=== PATIENT | female | born 1945 | race Caucasian/White ===

== ENCOUNTER 2017-09-06 19:22 | Inpatient (IN) ==
--- NOTE | 2017-09-06 19:33 | Emergency Department Report ---
Psych HPI - General Stated Complaint: Clearance for [facility] Time Seen by Provider: 09/06/17 19:25 Source: EMS, RN notes reviewed Mode of arrival: wheelchair Limitations: altered mental status - History of Present Illness HPI Narrative: Patient presents from [facility], with nurse's complaint of progressive decline in functioning and decreased interactivity to the point of near catatonia. Patient has Parkinson's with depression and psychosis, and this has been worsening over the past 7-10 days. Patient was seen yesterday by her primary care provider, TSH was drawn that was normal, was thought that this was a representation of the patient's depression worsening. For the course of the day staff been trying to get the patient admitted to [facility]'s inpatient psychiatric facility for probable catatonia secondary to Parkinson's depression with psychosis. [facility] is completely full, doctors at the [facility] unit and [facility] have agreed to accept the patient for short-term bedding untilis available at [facility]. Patient is here for medical clearance to go to [facility]. - Related Data Home Medications Medication Instructions Recorded Confirmed Acetaminophen [Acetaminophen ER] 1,300 mg PO HS 08/17/17 09/06/17 Acetaminophen [Tylenol] 325 - 650 mg PO Q4H PRN 08/17/17 09/06/17 Albuterol/Ipratropium [Duoneb] 1 unit AEROSOL BID 08/17/17 09/06/17 Albuterol/Ipratropium [Duoneb] 3 ml AEROSOL Q2H PRN 08/17/17 09/06/17 Bisacodyl Supp [Dulcolax] 10 mg RECTALLY DAILY PRN 08/17/17 09/06/17 Calcium Carbonate/Vitamin D3 1 tab PO DAILY 08/17/17 09/06/17 [Calcium 600-Vit D3 400 Tablet] Carbidopa/Levodopa 10/100 MG 1 tab PO 1130 08/17/17 09/06/17 [Sinemet] Carbidopa/Levodopa 25/100 MG 1 tab PO 1130 08/17/17 09/06/17 [Sinemet] Carbidopa/Levodopa 25/100 MG 2 tab PO TID 08/17/17 09/06/17 [Sinemet] Carboxymethyl/Glycerin/Poly80 1 drop EACH EYE BID 08/17/17 09/06/17 [Refresh Optive Advanced Drops] Celecoxib 200 mg PO DAILY 08/17/17 09/06/17 Docusate Sodium [Colace] 100 mg PO HS 08/17/17 09/06/17 Escitalopram [Lexapro] 10 mg PO DAILY 08/17/17 09/06/17 Fexofenadine [Allyn] 180 mg PO DAILY PRN 08/17/17 09/06/17 Guaifenesin/Dextromethorphan 10 ml PO Q4H PRN 08/17/17 09/06/17 [Tussin Dm Cough Syrup] Mirtazapine [Remeron] 45 mg PO HS 08/17/17 09/06/17 Multivitamin,Therapeutic [Thera] 1 tab PO DAILY 08/17/17 09/06/17 Nystatin [Nyamyc] 1 applicatio TOP BID 08/17/17 09/06/17 Nystatin [Nyamyc] 1 applicatio TOP BID PRN 08/17/17 09/06/17 Pantoprazole Sodium [Protonix] 40 mg PO ACB 08/17/17 09/06/17 Peg 3350 238 G Bottle [Miralax] 17 gm PO DAILY 08/17/17 09/06/17 Ropinirole [Requip] 3 mg PO TID 08/17/17 09/06/17 Senna + Docusate [Senna Plus 1 tab PO HS 08/17/17 09/06/17 Tablet] Sucralfate [Carafate] 1 gm PO HS 08/17/17 09/06/17 Tramadol [Ultram] 50 mg PO TID PRN 08/17/17 09/06/17 Triamcinolone 0.1% Cream 15 G 1 applicatio TOP TID PRN 08/17/17 09/06/17 [Kenalog] Vitamin B Complex [Balanced B-100] 1 tab PO DAILY 08/17/17 09/06/17 Acetaminophen [Tylenol] 650 mg PO Q4H PRN 09/06/17 09/06/17 Baclofen [Lioresal] 10 mg PO BID 09/06/17 09/06/17 Milk of Magnesia [Mom] 30 ml PO DAILY PRN 09/06/17 09/06/17 Allergies Allergy/AdvReac Type Severity Reaction Status Date / Time meperidine Allergy Unknown Verified 08/17/17 10:41 Review of Systems All systems: reviewed and negative except as stated PFSH Parkinson's Depression with psychosis GERD with esophagitis 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 Allergies with ear problems Gastritis without bleeding Joint pain Sciatica Generalized muscle weakness Peripheral edema Hypokalemia Constipation UTI Anemia Surgical History: Unknown - Social History Smoking status: Never smoker Substance use type: does not use Alcohol intake frequency: does not drink Physical Exam - Limitations Limitations: altered mental status - General General appearance: obtunded - Normal Exams: Head:: Normocephalic without trauma Eyes:: Pupils are PERRLA w/ EOMI, No scleral icterus, irritation, or foreign bodies noted ENMT:: No facial trauma, nasal exudates, pharyngeal erythema, or exudates are noted Neck:: Full range of motion, without adenopathy, JVD, bruits or thyromegaly Chest/Respirations:: Clear all hernandez, with good airflow, and symmetry bilaterally Cardiovascular:: Regular rate and rhythm, without murmur or gallop, Pulses 2+ all extremities, capillary refill, <2 seconds all extremities Abdomen:: Bowel sounds positive, soft, non-tender, non-distended, no hepatosplenomegaly, masses or bruits noted Lymphatic:: No lymphadenopathy, or lymphedema noted Musculoskeletal:: No tenderness, or deformity noted, good range of motion, all extremities Integumentary:: No rashes, hives, or bruising noted, hair and nails, without abnormality - Neurological Exam Neurological exam: Absent: alert (patient appears obtunded, but is able to follow simple commands. Patient will not communicate verbally at this time, but apparently did communicate verbally briefly at the shelter 2 hours ago.) - Psychiatric Psychiatric exam: Present: depressed, flat affect (nearly obtunded/catatonic) Psych - MDM Narrative Medical decision making narrative: Case is discussed with [facility] staff, patient has been presumptively accepted by [facility] for short-term care until a bed can be found at [facility]. BC, CMP, UA, salicylates all essentially normal. CT scan of head is normal as well. - Lab Data Result diagrams: 09/06/17 20:15 09/06/17 20:15 Disposition Clinical Impression: Decreased responsiveness, Depression, major, recurrent, severe with psychosis Disposition: [facility] To [facility] Condition: Stable Prescriptions: No Action Carbidopa/Levodopa 10/100 MG [Sinemet] 1 tab PO 1130 Carbidopa/Levodopa 25/100 MG [Sinemet] 1 tab PO 1130 Bisacodyl Supp [Dulcolax] 10 mg RECTALLY DAILY PRN PRN Reason: Constipation Carbidopa/Levodopa 25/100 MG [Sinemet] 2 tab PO TID Senna + Docusate [Senna Plus Tablet] 1 tab PO HS Nystatin [Nyamyc] 1 applicatio TOP BID Albuterol/Ipratropium [Duoneb] 3 ml AEROSOL Q2H PRN PRN Reason: Shortness Of Air/Wheezing Vitamin B Complex [Balanced B-100] 1 tab PO DAILY Acetaminophen [Tylenol] 325 - 650 mg PO Q4H PRN PRN Reason: Pain /Fever Triamcinolone 0.1% Cream 15 G [Kenalog] 1 applicatio TOP TID PRN PRN Reason: Prn Orders Calcium Carbonate/Vitamin D3 [Calcium 600-Vit D3 400 Tablet] 1 tab PO DAILY Guaifenesin/Dextromethorphan [Tussin Dm Cough Syrup] 10 ml PO Q4H PRN PRN Reason: Cough Albuterol/Ipratropium [Duoneb] 1 unit AEROSOL BID Nystatin [Nyamyc] 1 applicatio TOP BID PRN PRN Reason: Rash Celecoxib 200 mg PO DAILY Docusate Sodium [Colace] 100 mg PO HS Ropinirole [Requip] 3 mg PO TID Tramadol [Ultram] 50 mg PO TID PRN PRN Reason: Pain Sucralfate [Carafate] 1 gm PO HS Mirtazapine [Remeron] 45 mg PO HS Escitalopram [Lexapro] 10 mg PO DAILY Acetaminophen [Acetaminophen ER] 1,300 mg PO HS Fexofenadine [Allyn] 180 mg PO DAILY PRN PRN Reason: Allergy Symptoms Multivitamin,Therapeutic [Thera] 1 tab PO DAILY Milk of Magnesia [Mom] 30 ml PO DAILY PRN PRN Reason: Constipation Baclofen [Lioresal] 10 mg PO BID Acetaminophen [Tylenol] 650 mg PO Q4H PRN PRN Reason: Pain Carboxymethyl/Glycerin/Poly80 [Refresh Optive Advanced Drops] 1 drop EACH EYE BID Pantoprazole Sodium [Protonix] 40 mg PO ACB Peg 3350 238 G Bottle [Miralax] 17 gm PO DAILY Referrals: Jania Llanes MD [Primary Care Provider] - - Seen By: physician
--- OUTSIDE RECORDS SUMMARY | 2017-09-06 19:43 | External Medical Summary | Continuity of Care Document ---
:1945 Author Organization [facility] Active Description Code Type Severity Reaction Onset Reported/ Identified Relationship Clinical to Patient Status Yes DEMEROL 80678 Drug N/A N/A 82407 Aller 2 gy Yes NEUPRO 43441 Drug N/A N/A 26671 Aller 3 gy Yes Opioids-Mepe meper Aller Unknown N/A 08/23/2010 ridine & idine gy Related Yes Opioids-Mepe meper Aller Unknown N/A 08/23/2010 ridine and idine gy Related Yes meperidine Aller Unknown N/A 08/17/2017 gy Medications Medication Packaging Start Date Stop Date Route Dosage Sig 08/22/2009 INH 15 mcg/2 ml Brovana Neb BID 08/22/2009 PO 10 mg Abilify HS 08/22/2009 PO 1 gm Sucralfate HS Comtan 08/22/2009 PO 200 mg QID 08/22/2009 PO 45 mg Remeron HS Ultram 07/15/2010 PO 50 mg PRN 07/17/2010 PO 30 mg Prevacid DAILY 08/24/2010 PO 10 mg Lexapro DAILY 09/01/2010 ORAL [id number] 04/03/2012 ORAL 09/23/2014 ORAL [id number] twice daily 04/10/2015 PO 8.6 mg Sennosides HS 04/10/2015 PO 1 each Multi-Day Vitamins DAILY Tussin 04/10/2015 PO 118 ml Dm Syrup PRN 04/10/2015 PO 325 mg Acetaminophen PRN Mapap 04/10/2015 PO 650 mg Arthritis Pain HS 04/10/2015 PO 1 each Vitamin B Complex DAILY 04/10/2015 PO 255 gm Polyethylene DAILY Glycol 3350 04/10/2015 PO 100 mg Docusate Sodium HS 04/10/2015 PO 500 mg Methocarbamol BID 04/10/2015 PO 200 mg Celecoxib DAILY 04/10/2015 INH 3 ml Iprat-Albut Q6H 0.5-3(2.5) mg/3 ml 04/10/2015 PO 1 each Carbidopa-Levodopa BID 25-100 Tab 04/10/2015 PO 100 mg Tessalon Perle Q8H 04/10/2015 PO 3 mg Ropinirole HCl TID 04/10/2015 PO 20 mg Deltasone 20 mg WB Keflex 08/17/2017 PO 500 mg 500 mg TID 08/17/2017 PO 650 mg Acetaminophen ER HS 08/17/2017 PO 1 tab Sinemet 1130 Colace 08/17/2017 PO 100 mg HS 08/17/2017 PO 1 tab Sinemet 1130 Thera 08/17/2017 PO 1 each DAILY Milk 08/17/2017 PO 400 mg/5 ml of Magnesia DAILY 08/17/2017 PO 500 mg Robaxin BID Ultram 08/17/2017 PO 50 mg TID 08/17/2017 PO 1 gm Carafate HS 08/17/2017 PO 10 mg Lexapro DAILY 08/17/2017 PO 238 gm Miralax DAILY 08/17/2017 PO 180 mg Allyn DAILY 08/17/2017 PO 1 each Calcium 600-Vit D3 DAILY 400 Tablet Tussin 08/17/2017 PO 118 ml Dm Cough Syrup Q4H 08/17/2017 PO 1 each Balanced B-100 DAILY Senna 08/17/2017 PO 1 tab Plus Tablet HS Debrox 08/17/2017 LEFT EAR 150 drops/15 ml WESA Nyamyc 08/17/2017 TOP 15 gm TID Duoneb 08/17/2017 AEROSOL 3 ml Q2H 08/17/2017 RECTALLY 10 mg Dulcolax DAILY 08/17/2017 PO 325 mg Tylenol Q4H 08/17/2017 PO 45 mg Remeron HS 08/17/2017 TOP 15 Kenalog applic/15 g TID 08/17/2017 PO 200 mg Celecoxib DAILY 08/17/2017 EACH EYE 10 ml Refresh Optive BID Advanced Drops 08/17/2017 PO 40 mg Protonix ACB Requip 08/17/2017 PO 3 mg TID Problems Date Dx Coded Attending Type Code Diagnosis Diagnosed By 11/05/2016 EUSEBIA RODRIGUES, D64.9 Anemia, [place]SE[place] RODRIGUES, SUKI Hunt unspecified SUKI Hunt 11/05/2016 EUSEBIA RODRIGUES, R60.9 Edema, unspecified EUSEBIA RODRIGUES, SUKI Hunt 03/04/2017 EUSE[place]IA RODRIGUES, D64.9 Anemia, [place]SE[place] RODRIGUES, SUKI Hunt unspecified SUKI L 03/04/2017 EUSEBIA RODRIGUES, R60.9 Edema, unspecified EUSEBIA RODRIGUES, SUKI COHN L Procedures There is no data. Results Test Result Range M153.0000 - 11/28/15 23:45 URINE CULTURE. CFU/ml L600.0180 - 11/28/15 23:45 SPECIMEN TYPE, URINE STRAIGHT CATH COLOR,URINE YELLOW YELLOW TURBIDITY, URINE CLOUDY CLEAR SPECIFIC GRAVITY,URINE 1.025 1.015-1.025 PH, URINE - DIPSTICK 6.0 5.0-8.0 LEUKOCYTE ESTERASE ,URINE TRACE NEGATIVE NITRITE,URINE POSITIVE NEGATIVE PROTEIN,URINE - DIPSTICK NEGATIVE NEGATIVE GLUCOSE, URINE - DIPSTICK NEGATIVE NEGATIVE KETONES,URINE - DIPSTICK 1+ NEGATIVE UROBILINOGEN,URINE 0.2 EU/DL NORMAL BILIRUBIN,URINE - DIPSTICK NEGATIVE NEGATIVE BLOOD, URINE TRACE-LYSED NEGATIVE L600.0180 - 11/28/15 23:45 SPECIMEN TYPE, URINE STRAIGHT CATH COLOR,URINE YELLOW YELLOW TURBIDITY, URINE CLOUDY CLEAR SPECIFIC GRAVITY,URINE 1.025 1.015-1.025 PH, URINE - DIPSTICK 6.0 5.0-8.0 LEUKOCYTE ESTERASE ,URINE TRACE NEGATIVE NITRITE,URINE POSITIVE NEGATIVE PROTEIN,URINE - DIPSTICK NEGATIVE NEGATIVE GLUCOSE, URINE - DIPSTICK NEGATIVE NEGATIVE KETONES,URINE - DIPSTICK 1+ NEGATIVE UROBILINOGEN,URINE 0.2 EU/DL NORMAL BILIRUBIN,URINE - DIPSTICK NEGATIVE NEGATIVE BLOOD, URINE TRACE-LYSED NEGATIVE WBC,URINE 5-10 /HPF 0-5 RBC,URINE 1-3 /HPF 0-3 SQUAMOUS EPITHELIAL CELL,UR 10-20 BACTERIA,URINE 4+ NEGATIVE L200.0020 - 12/12/15 05:55 ICTERUS < 2 0-7 HEMOLYSIS < 15 0-25 L100.0050 - 12/26/15 05:25 WBC - WHITE BLOOD COUNT 3.3 T/MM3 4.5-11.0 RED BLOOD COUNT 4.13 M/MM3 4.00-5.20 HGB - HEMOGLOBIN 13.1 GM/DL 12-16 HCT - HEMATOCRIT 40.7 % 36-46 MEAN CORPUSCULAR VOLUME 98.5 UM3 80-100 MEAN CORPUSCULAR HGB 31.7 UUG 26-34 MEAN CORPUSCULAR HGB CONC(MCHC 32.2 GM/DL 31-37 RDW STANDARD DEVIATION 47.6 FL 36.9-50.2 PLT - PLATELET COUNT 199 T/MM3 130-400 MEAN PLATELET VOLUME 9.6 UM3 9.4-12.4 NEUTROPHILS % (AUTO) 52.6 % 33-66 LYMPHOCYTES % (AUTO) 32.5 % 23-45 MONOCYTES % (AUTO) 9.1 % 0-9.0 EOSINOPHILS % (AUTO) 4.6 % 0-4 BASOPHILS % (AUTO) 1.2 % 0-2 IMMATURE GRANULOCYTE % (AUTO) 0.0 % 0.0-0.5 NEUTROPHILS # (AUTO) 1.7 T/MM3 1.8-7.7 LYMPHOCYTES # (AUTO) 1.1 T/MM3 1-4.8 MONOCYTES # (AUTO) 0.3 T/MM3 0-0.8 EOSINOPHILS # (AUTO) 0.2 T/MM3 0-0.5 BASOPHILS # (AUTO) 0.0 T/MM3 0-0.2 IMMATURE GRANULOCYTE # (AUTO) 0.00 T/MM3 0.00-0.03 L200.0020 - 12/26/15 05:25 ICTERUS < 2 0-7 HEMOLYSIS < 15 0-25 L200.1350 - 12/26/15 05:25 CHOLESTEROL 199 MG/DL 132-199 TRIGLYCERIDES 179 MG/DL 35-135 HDL CHOLESTEROL, DIRECT 46 MG/DL 40-60 LDL CHOLESTEROL,CALCULATED 117.2 66-159 VLDL CHOLESTEROL 35.8 MG/DL 0-28 RISK FACTOR 4.3 RATIO 0-4.0 M153.0000 - 01/18/16 11:00 URINE CULTURE. CFU/ml L6003.0110 - 01/18/16 11:00 SPECIMEN TYPE, URINE STRAIGHT CATH COLOR,URINE YELLOW YELLOW TURBIDITY, URINE CLEAR CLEAR SPECIFIC GRAVITY,URINE >=1.030 1.015-1.025 PH, URINE - DIPSTICK 6.0 5.0-8.0 LEUKOCYTE ESTERASE ,URINE NEGATIVE NEGATIVE NITRITE,URINE NEGATIVE NEGATIVE PROTEIN,URINE - DIPSTICK NEGATIVE NEGATIVE GLUCOSE, URINE - DIPSTICK NEGATIVE NEGATIVE KETONES,URINE - DIPSTICK TRACE NEGATIVE UROBILINOGEN,URINE 0.2 EU/DL NORMAL BILIRUBIN,URINE - DIPSTICK NEGATIVE NEGATIVE BLOOD, URINE NEGATIVE NEGATIVE LUMICND3 MICROSCOPIC NOT IND. L100.0050 - 03/16/16 06:50 WBC - WHITE BLOOD COUNT 3.2 T/MM3 4.5-11.0 RED BLOOD COUNT 3.84 M/MM3 4.00-5.20 HGB - HEMOGLOBIN 12.8 GM/DL 12-16 HCT - HEMATOCRIT 38.9 % 36-46 MEAN CORPUSCULAR VOLUME 101.3 UM3 80-100 MEAN CORPUSCULAR HGB 33.3 UUG 26-34 MEAN CORPUSCULAR HGB CONC(MCHC 32.9 GM/DL 31-37 RDW STANDARD DEVIATION 46.9 FL 36.9-50.2 PLT - PLATELET COUNT 189 T/MM3 130-400 MEAN PLATELET VOLUME 9.9 UM3 9.4-12.4 NEUTROPHILS % (AUTO) 60.1 % 33-66 LYMPHOCYTES % (AUTO) 28.4 % 23-45 MONOCYTES % (AUTO) 8.1 % 0-9.0 EOSINOPHILS % (AUTO) 2.2 % 0-4 BASOPHILS % (AUTO) 0.9 % 0-2 IMMATURE GRANULOCYTE % (AUTO) 0.3 % 0.0-0.5 NEUTROPHILS # (AUTO) 1.9 T/MM3 1.8-7.7 LYMPHOCYTES # (AUTO) 0.9 T/MM3 1-4.8 MONOCYTES # (AUTO) 0.3 T/MM3 0-0.8 EOSINOPHILS # (AUTO) 0.1 T/MM3 0-0.5 BASOPHILS # (AUTO) 0.0 T/MM3 0-0.2 IMMATURE GRANULOCYTE # (AUTO) 0.01 T/MM3 0.00-0.03 L200.0020 - 03/16/16 06:50 ICTERUS < 2 0-7 HEMOLYSIS 16 0-25 TURBIDITY < 20 0-20 SODIUM 142 MEQ/L 134-144 POTASSIUM 4.1 MEQ/L 3.6-5 CHLORIDE 106 MEQ/L 98-107 CO2 - CARBON DIOXIDE 28 MEQ/L 22-30 ANION GAP 8 MEQ/L 5-15 BLOOD UREA NITROGEN 19.0 MG/DL 7-17 CREATININE 0.5 MG/DL 0.7-1.2 BUN/CREATININE RATIO 38 RATIO 6-26 GLOMERULAR FILTRATION RATE 122 GLUCOSE 84 MG/DL 65-110 OSMOLALITY,CALCULATED 274 MOSM/KG 261-280 CALCIUM 8.9 MG/DL 8.4-10.2 BILIRUBIN,TOTAL 0.50 MG/DL 0.20-1.30 ALKALINE PHOSPHATASE 70 U/L 38-126 TOTAL PROTEIN 6.4 G/DL 6.3-8.2 ALBUMIN 3.7 G/DL 3.5-5.0 GLOBULIN 2.7 G/DL 2.4-3.6 ALBUMIN/GLOBULIN RATIO 1.4 RATIO 1.1-2.2 AST (SGOT) 17 U/L 14-36 ALT (SGPT) 19 U/L 9-52 L200.2360 - 03/16/16 06:50 VITAMIN B12 529 PG/ML 239-931 L200.1350 - 03/16/16 06:50 CHOLESTEROL 193 MG/DL 132-199 TRIGLYCERIDES 127 MG/DL 35-135 HDL CHOLESTEROL, DIRECT 41 MG/DL 40-60 LDL CHOLESTEROL,CALCULATED 126.6 66-159 VLDL CHOLESTEROL 25.4 MG/DL 0-28 RISK FACTOR 4.7 RATIO 0-4.0 L100.0050 - 08/16/16 05:45 WBC - WHITE BLOOD COUNT 3.5 T/MM3 4.5-11.0 RED BLOOD COUNT 3.88 M/MM3 4.00-5.20 HGB - HEMOGLOBIN 12.3 GM/DL 12-16 HCT - HEMATOCRIT 38.3 % 36-46 MEAN CORPUSCULAR VOLUME 98.7 UM3 80-100 MEAN CORPUSCULAR HGB 31.7 UUG 26-34 MEAN CORPUSCULAR HGB CONC(MCHC 32.1 GM/DL 31-37 RDW STANDARD DEVIATION 46.5 FL 36.9-50.2 PLT - PLATELET COUNT 194 T/MM3 130-400 MEAN PLATELET VOLUME 9.5 UM3 9.4-12.4 NEUTROPHILS % (AUTO) 61.3 % 33-66 LYMPHOCYTES % (AUTO) 28.0 % 23-45 MONOCYTES % (AUTO) 6.9 % 0-9.0 EOSINOPHILS % (AUTO) 2.9 % 0-4 BASOPHILS % (AUTO) 0.9 % 0-2 IMMATURE GRANULOCYTE % (AUTO) 0.0 % 0.0-0.5 NEUTROPHILS # (AUTO) 2.1 T/MM3 1.8-7.7 LYMPHOCYTES # (AUTO) 1.0 T/MM3 1-4.8 MONOCYTES # (AUTO) 0.2 T/MM3 0-0.8 EOSINOPHILS # (AUTO) 0.1 T/MM3 0-0.5 BASOPHILS # (AUTO) 0.0 T/MM3 0-0.2 IMMATURE GRANULOCYTE # (AUTO) 0.00 T/MM3 0.00-0.03 L200.0020 - 08/16/16 05:45 FUNGAL CULTURE. 0.5 MG/DL 0.7-1.2 FUNGAL CULTURE, BLOOD. 38 RATIO 6-26 NA - Sodium 146 MEQ/L 134-144 Potassium 4.2 MEQ/L 3.6-5 Chloride 104 MEQ/L 98-107 CO2 - Carbon Dioxide 29 MEQ/L 22-30 Anion Gap 13 MEQ/L 5-15 BUN - Blood Urea Nitrogen 19.0 MG/DL 7-17 Glomerular Filtration Rate 122 NRG Glucose 89 MG/DL 65-110 Osmolality,Calculated 282 MOSM/KG 261-280 Calcium 9.0 MG/DL 8.4-10.2 Bilirubin,Total 0.60 MG/DL 0.20-1.30 Alkaline Phosphatase 68 U/L 38-126 AST - Aspartate Amino Transfer 14 U/L 14-36 ALT 25 U/L 9-52 TP - Total Protein 6.3 G/DL 6.3-8.2 Albumin Level 3.7 G/DL 3.5-5.0 Globulin 2.6 G/DL 2.4-3.6 Albumin/Globulin Ratio 1.4 RATIO 1.1-2.2 LICTERUS < 2 0-7 LHEMOLYSIS < 15 0-25 LTURBIDITY < 20 0-20 L200.3850 - 08/16/16 05:45 TSH - Thyroid Stim Hormone 2.57 MIU/L 0.47-4.68 L200.1350 - 08/16/16 05:45 Triglycerides - Batch 126 MG/DL 35-135 Cholesterol - Batch 190 MG/DL 132-199 LDL Cholesterol,Calculated 122.8 66-159 VLDL Cholesterol 25.2 MG/DL 0-28 HDL Cholesterol, Direct -Batch 42 MG/DL 40-60 Chol/HDL Ratio 4.5 RATIO 0-4.0 L200.0050 - 10/01/16 01:00 POTASSIUM Urine, Clean Catch NRG CHLORIDE YELLOW YELLOW ANION GAP SL CLOUDY NRG BLOOD UREA NITROGEN 6.0 5.0-8.0 BUN/CREATININE RATIO NEGATIVE NEGATIVE GLUCOSE NEGATIVE NEGATIVE CALCIUM NEGATIVE NEGATIVE BILIRUBIN, CONJUG & UNCONJUG NEGATIVE NEGATIVE TOTAL PROTEIN 3-5 /HPF 0-3 ALBUMIN 20-30 /HPF 0-5 ALBUMIN/GLOBULIN RATIO 20-50 NRG CKMB 3+ NEGATIVE GENTAMICIN,RANDOM Cult reflexed &setup NR Specific Luke,Urine 1.015 1.015-1.025 Leukocyte Esterase,Urine 2+ NEGATIVE Nitrate,Urine POSITIVE NEGATIVE Urobilinogen,Urine 0.2 EU/DL NORMAL Occult Blood,Urine - Dipstick NEGATIVE NEGATIVE M120.0100 - 10/01/16 01:00 Urine Culture CFU/ml NR L100.0050 - 11/05/16 04:55 WBC - WHITE BLOOD COUNT 3.9 T/MM3 4.5-11.0 RED BLOOD COUNT 3.78 M/MM3 4.00-5.20 HGB - HEMOGLOBIN 12.1 GM/DL 12-16 HCT - HEMATOCRIT 38.0 % 36-46 MEAN CORPUSCULAR VOLUME 100.5 UM3 80-100 MEAN CORPUSCULAR HGB 32.0 UUG 26-34 MEAN CORPUSCULAR HGB CONC(MCHC 31.8 GM/DL 31-37 RDW STANDARD DEVIATION 50.1 FL 36.9-50.2 PLT - PLATELET COUNT 191 T/MM3 130-400 MEAN PLATELET VOLUME 10.0 UM3 9.4-12.4 NEUTROPHILS % (AUTO) 63.4 % 33-66 LYMPHOCYTES % (AUTO) 25.8 % 23-45 MONOCYTES % (AUTO) 7.7 % 0-9.0 EOSINOPHILS % (AUTO) 2.6 % 0-4 BASOPHILS % (AUTO) 0.5 % 0-2 IMMATURE GRANULOCYTE % (AUTO) 0.0 % 0.0-0.5 NEUTROPHILS # (AUTO) 2.5 T/MM3 1.8-7.7 LYMPHOCYTES # (AUTO) 1.0 T/MM3 1-4.8 MONOCYTES # (AUTO) 0.3 T/MM3 0-0.8 EOSINOPHILS # (AUTO) 0.1 T/MM3 0-0.5 BASOPHILS # (AUTO) 0.0 T/MM3 0-0.2 IMMATURE GRANULOCYTE # (AUTO) 0.00 T/MM3 0.00-0.03 L200.0020 - 11/05/16 04:55 FUNGAL CULTURE. 0.6 MG/DL 0.7-1.2 FUNGAL CULTURE, BLOOD. 35 RATIO 6-26 NA - Sodium 144 MEQ/L 134-144 Potassium 4.1 MEQ/L 3.6-5 Chloride 104 MEQ/L 98-107 CO2 - Carbon Dioxide 31 MEQ/L 22-30 Anion Gap 9 MEQ/L 5-15 BUN - Blood Urea Nitrogen 21.0 MG/DL 7-17 Glomerular Filtration Rate 99 NRG Glucose 90 MG/DL 65-110 Osmolality,Calculated 280 MOSM/KG 261-280 Calcium 9.1 MG/DL 8.4-10.2 Bilirubin,Total 0.60 MG/DL 0.20-1.30 Alkaline Phosphatase 82 U/L 38-126 AST - Aspartate Amino Transfer 15 U/L 14-36 ALT 18 U/L 9-52 TP - Total Protein 7.0 G/DL 6.3-8.2 Albumin Level 4.0 G/DL 3.5-5.0 Globulin 3.0 G/DL 2.4-3.6 Albumin/Globulin Ratio 1.3 RATIO 1.1-2.2 LICTERUS < 2 0-7 LHEMOLYSIS < 15 0-25 LTURBIDITY < 20 0-20 L100.0050 - 03/04/17 05:50 WBC - WHITE BLOOD COUNT 3.4 T/MM3 4.5-11.0 RED BLOOD COUNT 3.74 M/MM3 4.00-5.20 HGB - HEMOGLOBIN 12.1 GM/DL 12-16 HCT - HEMATOCRIT 37.7 % 36-46 MEAN CORPUSCULAR VOLUME 100.8 UM3 80-100 MEAN CORPUSCULAR HGB 32.4 UUG 26-34 MEAN CORPUSCULAR HGB CONC(MCHC 32.1 GM/DL 31-37 RDW STANDARD DEVIATION 51.1 FL 36.9-50.2 PLT - PLATELET COUNT 180 T/MM3 130-400 MEAN PLATELET VOLUME 9.9 UM3 9.4-12.4 NEUTROPHILS % (AUTO) 68.2 % 33-66 LYMPHOCYTES % (AUTO) 21.0 % 23-45 MONOCYTES % (AUTO) 6.1 % 0-9.0 EOSINOPHILS % (AUTO) 3.8 % 0-4 BASOPHILS % (AUTO) 0.6 % 0-2 IMMATURE GRANULOCYTE % (AUTO) 0.3 % 0.0-0.5 NEUTROPHILS # (AUTO) 2.3 T/MM3 1.8-7.7 LYMPHOCYTES # (AUTO) 0.7 T/MM3 1-4.8 MONOCYTES # (AUTO) 0.2 T/MM3 0-0.8 EOSINOPHILS # (AUTO) 0.1 T/MM3 0-0.5 BASOPHILS # (AUTO) 0.0 T/MM3 0-0.2 IMMATURE GRANULOCYTE # (AUTO) 0.01 T/MM3 0.00-0.03 L200.0020 - 03/04/17 05:50 FUNGAL CULTURE. 0.6 MG/DL 0.7-1.2 FUNGAL CULTURE, BLOOD. 45 RATIO 6-26 NA - Sodium 145 MEQ/L 134-144 Potassium 4.2 MEQ/L 3.6-5 Chloride 105 MEQ/L 98-107 CO2 - Carbon Dioxide 30 MEQ/L 22-30 Anion Gap 10 MEQ/L 5-15 BUN - Blood Urea Nitrogen 27.0 MG/DL 7-17 Glomerular Filtration Rate 99 NRG Glucose 107 MG/DL 65-110 Osmolality,Calculated 284 MOSM/KG 261-280 Calcium 9.0 MG/DL 8.4-10.2 Bilirubin,Total 0.40 MG/DL 0.20-1.30 Alkaline Phosphatase 72 U/L 38-126 AST - Aspartate Amino Transfer 19 U/L 14-36 ALT 14 U/L 9-52 TP - Total Protein 6.8 G/DL 6.3-8.2 Albumin Level 3.8 G/DL 3.5-5.0 Globulin 3.0 G/DL 2.4-3.6 Albumin/Globulin Ratio 1.3 RATIO 1.1-2.2 LICTERUS < 2 0-7 LHEMOLYSIS < 15 0-25 LTURBIDITY < 20 0-20 L200.49 - 05/09/17 11:40 POTASSIUM Urine, Void-CC/notCC NRG CHLORIDE YELLOW YELLOW ANION GAP SL CLOUDY NRG BLOOD UREA NITROGEN 6.5 5.0-8.0 BUN/CREATININE RATIO TRACE NEGATIVE GLUCOSE NEGATIVE NEGATIVE CALCIUM TRACE NEGATIVE BILIRUBIN, CONJUG & UNCONJUG NEGATIVE NEGATIVE TOTAL PROTEIN 0-1 /HPF 0-3 ALBUMIN 5-10 /HPF 0-5 ALBUMIN/GLOBULIN RATIO 0-5 NRG CKMB 3+ NEGATIVE GENTAMICIN,RANDOM Cult reflexed &setup NR Specific Luke,Urine 1.025 1.015-1.025 Leukocyte Esterase,Urine NEGATIVE NEGATIVE Nitrate,Urine POSITIVE NEGATIVE Urobilinogen,Urine 0.2 EU/DL NORMAL Occult Blood,Urine - Dipstick NEGATIVE NEGATIVE 05/09/17 11:40 Urine Culture Culture Initiated - Results Pending [facility]05/09/18 11:40 Urine Culture CFU/ml NRG L100.0050 - 06/27/17 05:00 WBC - WHITE BLOOD COUNT 3.3 T/MM3 4.5-11.0 RED BLOOD COUNT 3.77 M/MM3 4.00-5.20 HGB - HEMOGLOBIN 12.0 GM/DL 12-16 HCT - HEMATOCRIT 37.3 % 36-46 MEAN CORPUSCULAR VOLUME 98.9 UM3 80-100 MEAN CORPUSCULAR HGB 31.8 UUG 26-34 MEAN CORPUSCULAR HGB CONC(MCHC 32.2 GM/DL 31-37 RDW STANDARD DEVIATION 49.3 FL 36.9-50.2 PLT - PLATELET COUNT 177 T/MM3 130-400 MEAN PLATELET VOLUME 10.0 UM3 9.4-12.4 NEUTROPHILS % (AUTO) 57.4 % 33-66 LYMPHOCYTES % (AUTO) 29.2 % 23-45 MONOCYTES % (AUTO) 8.8 % 0-9.0 EOSINOPHILS % (AUTO) 4.0 % 0-4 BASOPHILS % (AUTO) 0.6 % 0-2 IMMATURE GRANULOCYTE % (AUTO) 0.0 % 0.0-0.5 NEUTROPHILS # (AUTO) 1.9 T/MM3 1.8-7.7 LYMPHOCYTES # (AUTO) 1.0 T/MM3 1-4.8 MONOCYTES # (AUTO) 0.3 T/MM3 0-0.8 EOSINOPHILS # (AUTO) 0.1 T/MM3 0-0.5 BASOPHILS # (AUTO) 0.0 T/MM3 0-0.2 IMMATURE GRANULOCYTE # (AUTO) 0.00 T/MM3 0.00-0.03 L200.0020 - 06/27/17 05:00 FUNGAL CULTURE. 0.6 mg/dL 0.7-1.2 FUNGAL CULTURE, BLOOD. 27 RATIO 6-26 NA - Sodium 145 MEQ/L 134-144 Potassium 4.1 MEQ/L 3.6-5 Chloride 103 MEQ/L 98-107 CO2 - Carbon Dioxide 32 MEQ/L 22-30 Anion Gap 10 meq/L 5-15 BUN - Blood Urea Nitrogen 16.0 MG/DL 7-17 Glomerular Filtration Rate 99 NRG Glucose 100 MG/DL 65-110 Osmolality,Calculated 280 MOSM/KG 261-280 Calcium 9.0 MG/DL 8.4-10.2 Bilirubin,Total 0.40 MG/DL 0.20-1.30 Alkaline Phosphatase 71 U/L 38-126 AST - Aspartate Amino Transfer 16 U/L 14-36 TP - Total Protein 6.4 g/dL 6.3-8.2 Albumin Level 3.8 g/dL 3.5-5.0 Globulin 2.6 G/DL 2.4-3.6 Albumin/Globulin Ratio 1.5 RATIO 1.1-2.2 LICTERUS < 2 0-7 LHEMOLYSIS < 15 0-25 LTURBIDITY < 20 0-20 LALTV < 4 U/L 1-35 L200.3850 - 06/27/17 05:00 TSH - Thyroid Stim Hormone 1.63 mIU/L 0.47-4.68 L750.9302 - 06/27/17 05:00 Varicella Zoster IgG Positive NRG Varicella Zoster IgG Index 649.40 =>165 L200.0050 - 08/17/17 00:00 POTASSIUM Urine, Void-CC/notCC NRG CHLORIDE YELLOW YELLOW ANION GAP SL CLOUDY NRG BLOOD UREA NITROGEN 6.0 5.0-8.0 BUN/CREATININE RATIO NEGATIVE NEGATIVE GLUCOSE NEGATIVE NEGATIVE CALCIUM TRACE NEGATIVE BILIRUBIN, CONJUG & UNCONJUG NEGATIVE NEGATIVE TOTAL PROTEIN 0-1 /HPF 0-3 ALBUMIN 5-10 /HPF 0-5 ALBUMIN/GLOBULIN RATIO >50 NRG CKMB 3+ NEGATIVE TRANSFERRIN Present NRG GENTAMICIN,RANDOM Cult reflexed &setup NRG Specific Luke,Urine 1.015 1.015-1.025 Leukocyte Esterase,Urine TRACE NEGATIVE Nitrate,Urine POSITIVE NEGATIVE Urobilinogen,Urine 0.2 EU/DL NORMAL Occult Blood,Urine - Dipstick NEGATIVE NEGATIVE M120.0100 - 08/17/17 00:00 Urine Culture CFU/ml NRG L200.0050 - 08/17/17 11:16 POTASSIUM Urine, Void-CC/notCC NRG CHLORIDE YELLOW YELLOW ANION GAP SL CLOUDY NRG BLOOD UREA NITROGEN 6.0 5.0-8.0 BUN/CREATININE RATIO NEGATIVE NEGATIVE GLUCOSE NEGATIVE NEGATIVE CALCIUM TRACE NEGATIVE BILIRUBIN, CONJUG & UNCONJUG NEGATIVE NEGATIVE Specific Luke,Urine 1.015 1.015-1.025 Leukocyte Esterase,Urine NEGATIVE NEGATIVE Nitrate,Urine POSITIVE NEGATIVE Urobilinogen,Urine 0.2 EU/DL NORMAL Occult Blood,Urine - Dipstick NEGATIVE NEGATIVE L100.0050 - 08/17/17 11:16 WBC - WHITE BLOOD COUNT 4.2 T/MM3 4.5-11.0 RED BLOOD COUNT 4.27 M/MM3 4.00-5.20 HGB - HEMOGLOBIN 13.9 GM/DL 12-16 HCT - HEMATOCRIT 41.6 % 36-46 MEAN CORPUSCULAR VOLUME 97.4 UM3 80-100 MEAN CORPUSCULAR HGB 32.6 UUG 26-34 MEAN CORPUSCULAR HGB CONC(MCHC 33.4 GM/DL 31-37 RDW STANDARD DEVIATION 47.3 FL 36.9-50.2 PLT - PLATELET COUNT 188 T/MM3 130-400 MEAN PLATELET VOLUME 9.4 UM3 9.4-12.4 NEUTROPHILS % (AUTO) 74.0 % 33-66 LYMPHOCYTES % (AUTO) 18.7 % 23-45 MONOCYTES % (AUTO) 6.1 % 0-9.0 EOSINOPHILS % (AUTO) 0.7 % 0-4 BASOPHILS % (AUTO) 0.5 % 0-2 IMMATURE GRANULOCYTE % (AUTO) 0.0 % 0.0-0.5 NEUTROPHILS # (AUTO) 3.1 T/MM3 1.8-7.7 LYMPHOCYTES # (AUTO) 0.8 T/MM3 1-4.8 MONOCYTES # (AUTO) 0.3 T/MM3 0-0.8 EOSINOPHILS # (AUTO) 0.0 T/MM3 0-0.5 BASOPHILS # (AUTO) 0.0 T/MM3 0-0.2 IMMATURE GRANULOCYTE # (AUTO) 0.00 T/MM3 0.00-0.03 L200.0050 - 08/17/17 11:16 POTASSIUM Urine, Void-CC/notCC NRG CHLORIDE YELLOW YELLOW ANION GAP SL CLOUDY NRG BLOOD UREA NITROGEN 6.0 5.0-8.0 BUN/CREATININE RATIO NEGATIVE NEGATIVE GLUCOSE NEGATIVE NEGATIVE CALCIUM TRACE NEGATIVE BILIRUBIN, CONJUG & UNCONJUG NEGATIVE NEGATIVE TOTAL PROTEIN 0-1 /HPF 0-3 ALBUMIN 3-5 /HPF 0-5 ALBUMIN/GLOBULIN RATIO 20-50 NRG CKMB 3+ NEGATIVE GENTAMICIN,RANDOM Cult reflexed &setup NRG Specific Luke,Urine 1.015 1.015-1.025 Leukocyte Esterase,Urine NEGATIVE NEGATIVE Nitrate,Urine POSITIVE NEGATIVE Urobilinogen,Urine 0.2 EU/DL NORMAL Occult Blood,Urine - Dipstick NEGATIVE NEGATIVE L200.0020 - 08/17/17 11:16 FUNGAL CULTURE. 0.6 mg/dL 0.7-1.2 FUNGAL CULTURE, BLOOD. 30 RATIO 6-26 NA - Sodium 144 MEQ/L 136-146 Potassium 4.0 MEQ/L 3.6-5 Chloride 104 MEQ/L 98-107 CO2 - Carbon Dioxide 26 MEQ/L 22-30 Anion Gap 14 meq/L 5-15 BUN - Blood Urea Nitrogen 18.0 MG/DL 7-17 Glomerular Filtration Rate 99 NRG Glucose 114 MG/DL 65-110 Osmolality,Calculated 280 MOSM/KG 261-280 Calcium 9.4 MG/DL 8.4-10.2 Bilirubin,Total 0.90 MG/DL 0.20-1.30 Alkaline Phosphatase 95 U/L 38-126 AST - Aspartate Amino Transfer 20 U/L 14-36 TP - Total Protein 8.0 g/dL 6.3-8.2 Albumin Level 4.7 g/dL 3.5-5.0 Globulin 3.3 G/DL 2.4-3.6 Albumin/Globulin Ratio 1.4 RATIO 1.1-2.2 LICTERUS < 2 0-7 LHEMOLYSIS < 15 0-25 LTURBIDITY < 20 0-20 LALTV 5 U/L 1-35 L200.2067 - 08/17/17 11:16 Lactate 1.4 MMOL/L 0.6-2.2 M120.0100 - 08/17/17 11:16 Urine Culture PREVIOUS CULTURE FOR A SENSITIVITY FOR THE E. NRG COLI. CFU/ml Encounters ACCT No. Visit Discharge Status Pt. Type Provider Facility Loc./Unit Complaint Date/Time [id number] 04/19/2017 04/19/2017 [facility] [id number] 08:52:47 23:59:59 t 247 [id number] 04/19/2017 04/19/2017 [facility] [id number] 08:43:39 23:59:59 t 339 [id number] 12/19/2016 12/19/2016 [facility] [id number] 09:01:30 23:59:59 t 130 [id number] 12/19/2016 12/19/2016 [facility] [id number] 08:59:42 23:59:59 t 942 [id number] 11/14/2016 11/14/2016 [facility] [id number] 11:25:02 11:25:02 t 502 [id number] 11/13/2016 11/13/2016 [facility] [id number] 14:11:47 14:11:47 t 147 [id number] 10/19/2016 10/19/2016 [facility] [id number] 09:25:27 23:59:59 t 527 [id number] 10/19/2016 10/19/2016 [facility] [id number] 07:56:59 23:59:59 t 659 [id number] 10/19/2016 10/19/2016 [facility] [id number] 07:56:45 23:59:59 t 645 [id number] 10/18/2016 10/18/2016 [facility] [id number] 15:07:59 23:59:59 t 759 [id number] 10/18/2016 10/18/2016 [facility] [id number] 14:35:09 23:59:59 t 509 [id number] 10/18/2016 10/18/2016 [facility] [id number] 14:29:04 23:59:59 t 904 [id number] 10/18/2016 10/18/2016 [facility] [id number] 14:27:22 23:59:59 t 722 [id number] 10/18/2016 10/18/2016 [facility] [id number] 13:54:05 23:59:59 t 405 [id number] 10/18/2016 10/18/2016 [facility] [id number] 13:54:03 23:59:59 t 403 [id number] 10/18/2016 10/18/2016 [facility] [id number] 13:53:47 23:59:59 t 347 [id number] 04/16/2016 04/16/2016 [facility] [id number] 14:14:41 14:14:41 t 441 [id number] 04/16/2016 04/16/2016 [facility] [id number] 14:14:26 14:14:26 t 426 [id number] 04/16/2016 04/16/2016 [facility] [id number] 14:10:00 14:10:00 t 000 [id number] 04/16/2016 04/16/2016 [facility] [id number] 11:22:14 11:22:14 t 214 [id number] 04/16/2016 04/16/2016 [facility] Out[facility] [id number] 10:41:25 10:41:25 t 125 [id number] 04/16/2016 04/16/2016 [facility] [id number] 10:29:39 10:29:39 t 939 [id number] 04/16/2016 04/16/2016 [facility] [id number] 09:49:17 09:49:17 t 917 [id number] 04/16/2016 04/16/2016 [facility] Out[facility] [id number] 09:40:32 09:40:32 t 032 [id number] 04/09/2016 04/09/2016 [facility] Out[facility] [id number] 13:16:23 13:16:23 t 623 [id number] 12/06/2015 12/06/2015 [facility] Out[facility] [id number] 08:12:51 08:12:51 t 251 [id number] 12/05/2015 12/05/2015 [facility] [id number] 11:16:35 23:59:59 t 635 [id number] 12/05/2015 12/05/2015 [facility] [id number] 11:12:37 23:59:59 t 237 [id number] 12/05/2015 12/05/2015 [facility] Outpat[facility] [id number] 12:06:29 12:06:29 t 629 [id number] 12/05/2015 12/05/2015 DIS Outpat[facility] [id number] 12:03:26 12:03:27 t 326 [id number] 12/05/2015 12/05/2015 DIS Outpat[facility] [id number] 10:24:00 10:24:01 t 400 [id number] 12/01/2015 12/01/2015 [facility] [id number] 09:48:06 23:59:59 t 806 [id number] 12/01/2015 12/01/2015 [facility] [id number] 09:48:05 23:59:59 t 805 [id number] 03/30/2015 03/30/2015 [facility] Out[facility] [id number] 10:50:40 10:50:40 t 040 [id number] 03/29/2015 03/29/2015 [facility] [id number] 15:57:38 23:59:59 t 738 [id number] 03/29/2015 03/29/2015 [facility] [id number] 14:38:31 23:59:59 t 831 [id number] 03/29/2015 03/29/2015 [facility] [id number] 13:49:46 23:59:59 t 946 [id number] 03/29/2015 03/29/2015 [facility] [id number] 13:47:46 23:59:59 t 746 [id number] 03/29/2015 03/29/2015 [facility] Outpat[facility] [id number] 14:51:28 14:51:28 t 128 [id number] 03/29/2015 03/29/2015 DIS Outpat[facility] [id number] 13:47:39 13:47:41 t 739 [id number] 03/29/2015 03/29/2015 DIS Outpat[facility] [id number] 13:46:40 13:46:41 t 640 [id number] 09/24/2014 09/24/2014 [facility] Outpat[facility] [id number] 08:17:25 08:17:25 t 725 [id number] 09/23/2014 09/23/2014 C[facility] [id number] 15:39:05 23:59:59 t 905 [id number] 09/23/2014 09/23/2014 [facility] [id number] 15:36:29 23:59:59 t 629 [id number] 09/23/2014 09/23/2014 [facility] [id number] 15:32:49 23:59:59 t 249 [id number] 09/23/2014 09/23/2014 [facility] [id number] 12:26:27 23:59:59 t 627 [id number] 09/23/2014 09/23/2014 [facility] [id number] 12:14:17 23:59:59 t 417 [id number] 09/23/2014 09/23/2014 [facility] Out[facility] [id number] 15:01:08 15:01:08 t 108 [id number] 09/23/2014 09/23/2014 [facility] Out[facility] [id number] 14:42:17 14:42:17 t 217 [id number] 09/23/2014 09/23/2014 DIS Outpat[facility] [id number] 14:41:21 14:41:21 t 121 [id number] 09/23/2014 09/23/2014 DIS Outpatien [id number] 12:26:37 12:26:38 t 637 [id number] 09/23/2014 09/23/2014 DIS Outpatien [id number] 12:14:20 12:14:21 t 420 [id number] 09/13/2014 09/13/2014 CLS Outpatien [id number] 15:44:36 23:59:59 t 436 [id number] 08/19/2014 08/19/2014 DIS Outpatien [id number] 09:03:59 09:03:59 t 359 [id number] 09/06/2017 DIS Outpatien [id number] 12:51:16 t 116 [id number] 10/18/2016 Document [id number] 13:58:00 Registrat 8 ion [id number] 04/16/2016 Document [id number] 09:54:00 Registrat 4 ion [id number] 12/09/2015 Document [id number] 08:28:49 Registrat 849 ion [id number] 12/08/2015 Document [id number] 08:40:06 Registrat 006 ion [id number] 04/04/2015 Document [id number] 07:55:01 Registrat 501 ion [id number] 04/02/2015 Document [id number] 16:03:36 Registrat 336 ion [id number] 03/29/2015 Document [id number] 13:59:00 Registrat 9 ion [id number] 09/24/2014 Document [id number] 07:19:46 Registrat ion [id number] 09/24/2014 Document [id number] 07:19:43 Registrat ion [id number] 09/24/2014 Document [id number] 07:19:41 Registrat ion [id number] 09/24/2014 Document [id number] 07:19:38 Registrat ion [id number] 09/24/2014 Document [id number] 07:19:33 Registrat ion [id number] 09/24/2014 Document [id number] 07:19:30 Registrat ion [id number] 09/24/2014 Document [id number] 07:19:27 Registrat ion [id number] 09/24/2014 Document [id number] 07:19:10 Registrat ion [id number] 09/23/2014 Document [id number] 17:15:16 Registrat 516 ion [id number] 09/23/2014 Document [id number] 15:36:32 Registrat 632 ion [id number] 09/23/2014 Document [id number] 15:04:00 Registrat 4 ion [id number] 09/23/2014 Document [id number] 15:03:00 Registrat 3 ion [id number] 08/17/2017 08/17/2017 DIS Emergency GLEN Lopez [facility], 439 10:13:00 12:20:00 MARNI RODRIGUES [facility] [id number] 08/17/2017 08/17/2017 DIS [facility]patien [facility] 447 10:23:00 10:24:00 t SUKI RODRIGUES [id number] 06/27/2017 06/27/2017 DIS Outpatien LLANES [facility]. 347 00:53:00 00:54:00 t SUKI RODRIGUES [id number] 05/09/2017 05/09/2017 DIS Outpatien [facility] 278 13:02:00 13:03:00 t SUKI RODRIGUES [id number] 03/04/2017 03/04/2017 DIS Outpatien [facility] 773 00:54:00 00:55:00 t SUKI RODRIGUES [id number] 11/05/2016 11/05/2016 DIS Outpatien EUSEBIA [facility] lab 855 01:35:00 01:36:00 t SUKI RODRIGUES [id number] 10/01/2016 10/01/2016 DIS Outpatien [facility] 354 06:40:00 06:41:00 t SUKI RODRIGUES [id number] 08/16/2016 08/16/2016 DIS Outpatisampson MAN [facility]. 019 00:17:00 00:18:00 t ELPIDIO NUR [id number] 03/16/2016 03/16/2016 CLS Annabel Lopez [facility]. 580 08:42:00 23:59:59 t DO, [facility] [id number] 01/18/2016 01/18/2016 CLS Outpatisampson Lopez [facility]. 430 14:23:00 23:59:59 t DO, [facility] [id number] 12/26/2015 12/26/2015 CLS Outtiesha Lopez [facility]. 591 05:55:00 23:59:59 t DO, [facility] [id number] 12/12/2015 12/12/2015 CLS Outpatisampson Lopez [facility]. 858 00:22:00 23:59:59 t DO, [facility] [id number] 11/28/2015 11/28/2015 CLS Outtiesha Lopez [facility]. 373 23:45:00 23:59:59 t DO, [facility] [id number] 09/06/2017 ACT Emergency VALERIO Lopez [facility] 313 19:22:00 MD [facility] [id number] 04/19/2017 04/19/2017 CLS Outpatien [id number] 08:52:47 23:59:59 t 247 [id number] 04/19/2017 04/19/2017 CLS Outpatien [id number] 08:43:39 23:59:59 t 339 [id number] 12/19/2016 12/19/2016 CLS Outpatien [id number] 09:01:30 23:59:59 t 130 [id number] 12/19/2016 12/19/2016 CLS Outpatien [id number] 08:59:42 23:59:59 t 942 [id number] 11/14/2016 11/14/2016 DIS Outpatien [id number] 11:25:02 11:25:02 t 502 [id number] 11/13/2016 11/13/2016 DIS Outpatien [id number] 14:11:47 14:11:47 t 147 [id number] 10/19/2016 10/19/2016 CLS Outpatien [id number] 09:25:27 23:59:59 t 527 [id number] 10/19/2016 10/19/2016 CLS Outpatien [id number] 07:56:59 23:59:59 t 659 [id number] 10/19/2016 10/19/2016 CLS Outpatien [id number] 07:56:45 23:59:59 t 645 [id number] 10/18/2016 10/18/2016 CLS Outpatien [id number] 15:07:59 23:59:59 t 759 [id number] 10/18/2016 10/18/2016 CLS Outpatien [id number] 14:35:09 23:59:59 t 509 [id number] 10/18/2016 10/18/2016 CLS Outpatien [id number] 14:29:04 23:59:59 t 904 [id number] 10/18/2016 10/18/2016 CLS Outpatien [id number] 14:27:22 23:59:59 t 722 [id number] 10/18/2016 10/18/2016 CLS Outpatien [id number] 13:54:05 23:59:59 t 405 [id number] 10/18/2016 10/18/2016 CLS Outpatien [id number] 13:54:03 23:59:59 t 403 [id number] 10/18/2016 10/18/2016 CLS Outpatien [id number] 13:53:47 23:59:59 t 347 [id number] 04/16/2016 04/16/2016 DIS Outpatien [id number] 14:14:41 14:14:41 t 441 [id number] 04/16/2016 04/16/2016 DIS Outpatien [id number] 14:14:26 14:14:26 t 426 [id number] 04/16/2016 04/16/2016 DIS Outpatien [id number] 14:10:00 14:10:00 t 000 [id number] 04/16/2016 04/16/2016 DIS Outpatien [id number] 11:22:14 11:22:14 t 214 [id number] 04/16/2016 04/16/2016 DIS Outpatien [id number] 10:41:25 10:41:25 t 125 [id number] 04/16/2016 04/16/2016 DIS Outpatien [id number] 10:29:39 10:29:39 t 939 [id number] 04/16/2016 04/16/2016 DIS Outpatien [id number] 09:49:17 09:49:17 t 917 [id number] 04/16/2016 04/16/2016 DIS Outpatien [id number] 09:40:32 09:40:32 t 032 [id number] 04/09/2016 04/09/2016 DIS Outpatien [id number] 13:16:23 13:16:23 t 623 [id number] 12/06/2015 12/06/2015 DIS Outpatien [id number] 08:12:51 08:12:51 t 251 [id number] 12/05/2015 12/05/2015 CLS Outpatien [id number] 11:16:35 23:59:59 t 635 [id number] 12/05/2015 12/05/2015 CLS Outpatien [id number] 11:12:37 23:59:59 t 237 [id number] 12/05/2015 12/05/2015 DIS Outpatien [id number] 12:06:29 12:06:29 t 629 [id number] 12/05/2015 12/05/2015 DIS Outpatien [id number] 12:03:26 12:03:27 t 326 [id number] 12/05/2015 12/05/2015 DIS Outpatien [id number] 10:24:00 10:24:01 t 400 [id number] 12/01/2015 12/01/2015 CLS Outpatien [id number] 09:48:06 23:59:59 t 806 [id number] 12/01/2015 12/01/2015 CLS Outpatien [id number] 09:48:05 23:59:59 t 805 [id number] 03/30/2015 03/30/2015 DIS Outpatien [id number] 10:50:40 10:50:40 t 040 [id number] 03/29/2015 03/29/2015 CLS Outpatien [id number] 15:57:38 23:59:59 t 738 [id number] 03/29/2015 03/29/2015 CLS Outpatien [id number] 14:38:31 23:59:59 t 831 [id number] 03/29/2015 03/29/2015 CLS Outpatien [id number] 13:49:46 23:59:59 t 946 [id number] 03/29/2015 03/29/2015 CLS Outpatien [id number] 13:47:46 23:59:59 t 746 [id number] 03/29/2015 03/29/2015 DIS Outpatien [id number] 14:51:28 14:51:28 t 128 [id number] 03/29/2015 03/29/2015 DIS Outpatien [id number] 13:47:39 13:47:41 t 739 [id number] 03/29/2015 03/29/2015 DIS Outpatien [id number] 13:46:40 13:46:41 t 640 [id number] 09/24/2014 09/24/2014 DIS Outpatien [id number] 08:17:25 08:17:25 t 725 [id number] 09/23/2014 09/23/2014 CLS Outpatien [id number] 15:39:05 23:59:59 t 905 [id number] 09/23/2014 09/23/2014 CLS Outpatien [id number] 15:36:29 23:59:59 t 629 [id number] 09/23/2014 09/23/2014 CLS Outpatien [id number] 15:32:49 23:59:59 t 249 [id number] 09/23/2014 09/23/2014 CLS Outpatien [id number] 12:26:27 23:59:59 t 627 [id number] 09/23/2014 09/23/2014 CLS Outpatien [id number] 12:14:17 23:59:59 t 417 [id number] 09/23/2014 09/23/2014 DIS Outpatien [id number] 15:01:08 15:01:08 t 108 [id number] 09/23/2014 09/23/2014 DIS Outpatien [id number] 14:42:17 14:42:17 t 217 [id number] 09/23/2014 09/23/2014 DIS Outpatien [id number] 14:41:21 14:41:21 t 121 [id number] 09/23/2014 09/23/2014 DIS Outpatien [id number] 12:26:37 12:26:38 t 637 [id number] 09/23/2014 09/23/2014 DIS Outpatien [id number] 12:14:20 12:14:21 t 420 [id number] 09/13/2014 09/13/2014 CLS Outpatien [id number] 15:44:36 23:59:59 t 436 [id number] 08/19/2014 08/19/2014 DIS Outpatien [id number] 09:03:59 09:03:59 t 359 [id number] 09/06/2017 DIS Outpatien [id number] 12:51:16 t 116 [id number] 10/18/2016 Document [id number] 13:58:00 Registrat 8 ion [id number] 04/16/2016 Document [id number] 09:54:00 Registrat 4 ion [id number] 12/09/2015 Document [id number] 08:28:49 Registrat 849 ion [id number] 12/08/2015 Document [id number] 08:40:06 Registrat 006 ion [id number] 04/04/2015 Document [id number] 07:55:01 Registrat 501 ion [id number] 04/02/2015 Document [id number] 16:03:36 Registrat 336 ion [id number] 03/29/2015 Document [id number] 13:59:00 Registrat 9 ion [id number] 09/24/2014 Document [id number] 07:19:46 Registrat ion [id number] 09/24/2014 Document [id number] 07:19:43 Registrat ion [id number] 09/24/2014 Document [id number] 07:19:41 Registrat ion [id number] 09/24/2014 Document [id number] 07:19:38 Registrat ion [id number] 09/24/2014 Document [id number] 07:19:33 Registrat ion [id number] 09/24/2014 Document [id number] 07:19:30 Registrat ion [id number] 09/24/2014 Document [id number] 07:19:27 Registrat ion [id number] 09/24/2014 Document [id number] 07:19:10 Registrat ion [id number] 09/23/2014 Document [id number] 17:15:16 Registrat 516 ion [id number] 09/23/2014 Document [id number] 15:36:32 Registrat 632 ion [id number] 09/23/2014 Document [id number] 15:04:00 Registrat 4 ion [id number] 09/23/2014 Document [id number] 15:03:00 Registrat 3 ion
[2017-09-06] MEDS ORDERED: HALOPERIDOL 5 MG/ML INJECTION IM PRN (23:11)
[2017-09-06] MEDS ORDERED: LORazepam 0.5 MG TABLET PO PRN (23:11)
[2017-09-06] MEDS ORDERED: HALOPERIDOL 0.5 MG TABLET PO PRN (23:11)
[2017-09-06] MEDS ORDERED: GUAIFENESIN/DM 5ml ORAL LIQUID PO PRN (23:14)
[2017-09-06] MEDS ORDERED: FEXOFENADINE 180 MG TABLET PO PRN (23:14)
[2017-09-06] MEDS ORDERED: TRAMADOL 50 MG TABLET PO PRN (23:14)
[2017-09-06] MEDS ORDERED: ALBUTEROL/IPRATROPIUM 2.5mg-0.5mg/3ml NEB AEROSOL PRN (23:14)
[2017-09-06] MEDS ORDERED: NYSTATIN OINTMENT 15gm TP PRN (23:14)
[2017-09-06] MEDS ORDERED: TRIAMCINOLONE 0.1% CREAM 15 G TUBE TOP PRN (23:14)
[2017-09-06] MEDS: BACLOFEN 10 MG TABLET PO SCH (23:57)
[2017-09-06] MEDS: MIRTAZAPINE 45 MG TABLET PO SCH (23:57)
[2017-09-06] MEDS: DOCUSATE SODIUM 100 MG CAPSULE PO SCH (23:58)
[2017-09-06] MEDS: SUCRALFATE 1 GM TABLET PO SCH (23:58)
[2017-09-06] MEDS: SENNA + DOCUSATE TABLET PO SCH (23:58)
[2017-09-06] MEDS: ROPINIROLE 3 MG TABLET PO SCH (23:58)
[2017-09-07 00:37] VITALS: BMI 34.6
[2017-09-07] MEDS ORDERED: ALBUTEROL/IPRATROPIUM 2.5mg-0.5mg/3ml NEB AEROSOL SCH (09:00)
--- NOTE | 2017-09-07 09:27 | History & Physical Report ---
History of Present Illness Date: 09/07/17 Chief complaint: Depression with psycotic symptoms HPI: Marva is a 72 -year-old female who currently resides at [facility] under the primary care of Dr. Brianne Llanes from [place]. It is reported by patient's sister that she has had an overall decline over the past 3 weeks following a UTI urinary tract infection. She reports over the last 2 weeks. Patient has become more depressed, she is not eating and drinking much at all. The last 2 days she has become mostly nonverbal. [facility] staff describes a state of nearly catatonic at times. She was brought to the emergency room last evening for acute medical evaluation followed by [facility] under the care of Dr. Burroughs. Liver studies are reviewed, CBC is normal , Chemistry panel overall unremarkable. Urinalysis does show a trace ketone, trace leukocyte esterase with 3+ bacteria. Alcohol, salicylate, acetaminophen and urine drug screen are all negative. CT scan of the brain was performed revealing no acute inter-annual abnormalities or hemorrhage. Patient is seen this morning for initial medical consultation. She is resting in bed, her sister is at the bedside sleeping. Upon arrival, patient does state good morning and then answers simple questions with yes and no. She denies having any pain or shortness of breath. She denies having abdominal discomfort or nausea. She is comfortably breathing on room air, does not appear to have any acute distress. Old records are reviewed and supplemental history is obtained from sister at the bedside. Review of Systems All systems PM: 10-point ROS was reviewed, no additional remarkable complaints except Review of systems: Patient denies all review of systems during exam Past Medical History Medical History Updates: Parkinson's disease. Major depressive disorder with psychotic symptoms. GERD. Urinary incontinence. ALLERGIC rhinitis. History of esophagitis and gastritis without GI bleeding. Unspecified convulsions Surgical History: Tonsillectomy. Appendectomy. Mastoidectomy Family History: Sister-alive and well Family History: As Above - Social History Smoking status: Never smoker Substance use type: does not use Alcohol intake frequency: does not drink [facility]: [facility] Current residence: [facility] ([place]) Social history: PCP Dr Brianne Llanes- [place], [place] Medications Home Medications Medication Instructions Recorded Confirmed Type Acetaminophen [Acetaminophen ER] 1,300 mg PO HS 08/17/17 09/06/17 History Acetaminophen [Tylenol] 325 - 650 mg PO Q4H PRN 08/17/17 09/06/17 History Albuterol/Ipratropium [Duoneb] 1 unit AEROSOL BID 08/17/17 09/06/17 History Albuterol/Ipratropium [Duoneb] 3 ml AEROSOL Q2H PRN 08/17/17 09/06/17 History Bisacodyl Supp [Dulcolax] 10 mg RECTALLY DAILY PRN 08/17/17 09/06/17 History Calcium Carbonate/Vitamin D3 1 tab PO DAILY 08/17/17 09/06/17 History [Calcium 600-Vit D3 400 Tablet] Carbidopa/Levodopa 10/100 MG 1 tab PO 1130 08/17/17 09/06/17 History [Sinemet] Carbidopa/Levodopa 25/100 MG 1 tab PO 1130 08/17/17 09/06/17 History [Sinemet] Carbidopa/Levodopa 25/100 MG 2 tab PO TID 08/17/17 09/06/17 History [Sinemet] Carboxymethyl/Glycerin/Poly80 1 drop EACH EYE BID 08/17/17 09/06/17 History [Refresh Optive Advanced Drops] Celecoxib 200 mg PO DAILY 08/17/17 09/06/17 History Docusate Sodium [Colace] 100 mg PO HS 08/17/17 09/06/17 History Escitalopram [Lexapro] 10 mg PO DAILY 08/17/17 09/06/17 History Fexofenadine [Allyn] 180 mg PO DAILY PRN 08/17/17 09/06/17 History Guaifenesin/Dextromethorphan 10 ml PO Q4H PRN 08/17/17 09/06/17 History [Tussin Dm Cough Syrup] Mirtazapine [Remeron] 45 mg PO HS 08/17/17 09/06/17 History Multivitamin,Therapeutic [Thera] 1 tab PO DAILY 08/17/17 09/06/17 History Nystatin [Nyamyc] 1 applicatio TOP BID 08/17/17 09/06/17 History Nystatin [Nyamyc] 1 applicatio TOP BID PRN 08/17/17 09/06/17 History Pantoprazole Sodium [Protonix] 40 mg PO ACB 08/17/17 09/06/17 History Peg 3350 238 G Bottle [Miralax] 17 gm PO DAILY 08/17/17 09/06/17 History Ropinirole [Requip] 3 mg PO TID 08/17/17 09/06/17 History Senna + Docusate [Senna Plus 1 tab PO HS 08/17/17 09/06/17 History Tablet] Sucralfate [Carafate] 1 gm PO HS 08/17/17 09/06/17 History Tramadol [Ultram] 50 mg PO TID PRN 08/17/17 09/06/17 History Triamcinolone 0.1% Cream 15 G 1 applicatio TOP TID PRN 08/17/17 09/06/17 History [Kenalog] Vitamin B Complex [Balanced B-100] 1 tab PO DAILY 08/17/17 09/06/17 History Acetaminophen [Tylenol] 650 mg PO Q4H PRN 09/06/17 09/06/17 History Baclofen [Lioresal] 10 mg PO BID 09/06/17 09/06/17 History Milk of Magnesia [Mom] 30 ml PO DAILY PRN 09/06/17 09/06/17 History Allergies Allergy/AdvReac Type Severity Reaction Status Date / Time meperidine Allergy Unknown Verified 08/17/17 10:41 Exam Vital Signs: Temperature 96.8 F 09/06/17 23:16 Pulse Rate 88 09/06/17 23:48 Respiratory Rate 20 09/06/17 23:48 Blood Pressure 154/54 H 09/06/17 23:16 Pulse Oximetry 96 09/06/17 23:48 Height/Weight/BMI: Height 1.57 m Weight 85.8 kg Body Mass Index 34.6 - Constitutional Present: no acute distress, well nourished, well developed - Routine HEENT Exam Eye: Present: EOMI ENT: Present: mucous membranes moist, dentition normal - Routine Respiratory Exam Present: CTA bilaterally. Absent: wheezes - Routine Cardiovascular Exam Present: RRR, S1, S2, no murmur. Absent: murmur - Routine Abdominal Exam Present: soft, normoactive bowel sounds, non distended. Absent: tenderness - Routine Extremities Exam Present: no edema - Routine Skin Exam Present: intact, dry, warm - Routine Neurological Exam Present: alert, oriented X3, CN II-XII intact - Routine Psychiatric Exam Present: cooperative Comments: Flat affact Results - Labs CBC & Chem 7: 09/06/17 20:15 09/06/17 20:15 Assessment and Plan Assessment and Plan: Impression MDD with severe psychotic symptoms Parkinson's Disease GERD Allergies Urinary incontinence Constipation Plan Agree with admission to [facility] in the care of Dr. Burroughs for further psychiatric evaluation and treatment. Continue on Sinemet. 4. Chronic Parkinson's Carafate and Protonix for History of GERD and gastritis Miralax and Colace for chronic bowel motivation Will obtain a urine culture of urinalysis that was obtained in the emergency room to rule out infectious etiology. Given patient's reported urinary tract infection approximately 3 weeks ago. Encourage patient to report dyspnea, is improving a safe environment. The hospitalist services will continue follow patient medically manage existing comorbidities during her stay on the [facility] unit. At time of discharge, her medical care will return to primary care provider in [place], Dr. Brianne Llanes 09/07/2017-9 PM-I examined the patient independently. I reviewed this chart, the patient history, and the ADMINISTRATIVE MANAGER's/PA's documented findings as above. We discussed and formulated the assessment and plan as above with the additions below.-Dr. Rick The patient was seen this evening in her room. She was lying in bed. She was taking her medicines crushed in pudding. She denies any pain but then does not answer any other questions. Her nurse states that she has not appeared to be in pain. Vital signs have been stable. The patient does appear confused. She does not appear uncomfortable. Chest is clear to auscultation. Cardiovascular reveals a regular rate and rhythm. Abdomen is soft and nontender. Extremities are free of edema. Impression and plan Continue with current treatment for Parkinson's disease. Agree with Carafate and Protonix for history of GERD and gastritis. Check B 12 and TSH on blood and lab - Physician Narrative Narrative: Date: 09/07/17 Time: 922 Hospital Course Summary Disclaimer: The visit summary below is not to be considered part of the above Progress Note. Hospital Course: Impression MDD with severe psychotic symptoms Parkinson's Disease GERD Allergies Urinary incontinence Constipation Plan Agree with admission to [facility] in the care of Dr. Burroughs for further psychiatric evaluation and treatment. Continue on Sinemet. 4. Chronic Parkinson's Carafate and Protonix for History of GERD and gastritis Miralax and Colace for chronic bowel motivation Will obtain a urine culture of urinalysis that was obtained in the emergency room to rule out infectious etiology. Given patient's reported urinary tract infection approximately 3 weeks ago. Encourage patient to report dyspnea, is improving a safe environment. The hospitalist services will continue follow patient medically manage existing comorbidities during [facility]. At time of discharge, her medical care will return to primary care provider in [place], Dr. Brianne Llanes
[2017-09-07] MEDS: PANTOPRAZOLE 40 MG TABLET PO SCH (09:52)
[2017-09-07] MEDS: CALCIUM 600 + VIT D 400 TABLET PO SCH (09:53)
[2017-09-07] MEDS: BACLOFEN 10 MG TABLET PO SCH ×2 (09:53→20:24)
[2017-09-07] MEDS: ESCITALOPRAM 10 MG TABLET PO SCH (09:54)
[2017-09-07] MEDS: CELECOXIB 200 MG CAPSULE PO SCH (09:54)
[2017-09-07] MEDS: ROPINIROLE 3 MG TABLET PO SCH ×3 (09:55→20:25)
[2017-09-07] MEDS: REFRESH CLASSIC Eye Drops 0.4ml EACH EYE SCH ×2 (09:55→20:25)
[2017-09-07] MEDS: VITAMIN B COMPLEX + C TABLET PO SCH (09:55)
[2017-09-07] MEDS: ALBUTEROL/IPRATROPIUM 2.5mg-0.5mg/3ml NEB AEROSOL SCH ×2 (10:05→20:28)
[2017-09-07] MEDS: POLYETHYL GLYCOL 3350 17gm PACKET PO SCH (11:46)
[2017-09-07] MEDS: LORazepam 1 MG TABLET PO SCH ×4 (12:23→20:24)
[2017-09-07] MEDS ORDERED: LORazepam INTENSOL 1mg/0.5ml ORAL LIQUID PO ONE (12:30)
--- NOTE | 2017-09-07 12:50 | 24 Hour Neuropsychiatic Eval ---
Date of Admission: 09/06/17 22:00 Chief complaint: "Marva" History of Present Illness: HPI: 72 y/o cf with a hx of depression and intellectual disability sent from [facility] for increasing self care failure. Family states pt had a UTI 3 weeks ago and was treated for delirium. Since that time she has been more withdrawn and has not been speaking or eating much. Recently she has been almost catatonic although nursing states she will take her meds and eat and drink some. On face to face the pt does not speak. She did say her name and that is all. She does not appear to be in any distress and she is moving all extremities. STRESSORS; Family states 2 [employer] employees were killed in car accident about a month ago and they are not sure if that could have contributed. Recent UTI. PSYCH ROS; Pt is not speaking. Family reports recently she has been more withdrawn and has not been talking. PAST PSYCH: Pt had a hospitalization 10 years ago after her mom . She was given ECT for MDD with psychosis and did very well. She is seen at and is on Lexapro and Remeron. SUBSTANCE ABUSE: Family denies PFS Patient Stated Medical History Parkinson's Disease Yes Dental Problems Yes: No teeth; no dentures Hx Incontinence Yes Hx Urinary Tract Infection Yes Other Musculoskeletal Yes: Pt unable to walk; full lift required Depression Yes Medical History Updates: Parkinson's disease. Major depressive disorder with psychotic symptoms. GERD. Urinary incontinence. ALLERGIC rhinitis. History of esophagitis and gastritis without GI bleeding. Unspecified convulsions Surgical History: Tonsillectomy. Appendectomy. Mastoidectomy - Social History Smoking status: Never smoker Substance use type: does not use Alcohol intake frequency: does not drink Housing: [facility] Current residence: Jail ([place]) Review of Systems ROS unobtainable: due to mental status Mental Status Exam Vitals: Last Vital Signs Temp 97.2 F 09/07/17 08:00 Pulse 86 09/07/17 08:00 Resp 20 09/07/17 10:05 BP 144/66 H 09/07/17 08:00 Pulse Ox 96 09/07/17 08:00 Height: 1.57 m Weight: 85.8 kg - Mental Status Exam Muscle Strength/Tone: Normal Dressing: Casual Grooming: Good Attitude: Cooperative Motor Activity: Retardation Eye Contact: Poor Speech: Slowed Volume: Soft Rhythm: Mumbled, Paucity of Language Orientation: Oriented to person Mood: Depressed Affect: Blunted, Flat Rate of Thoughts: Delayed Thought Organization: [place], Other Associations: Illogical Abstract Reasoning: Impaired, concrete Perception/Psychotic: Other Language: Naming Impaired Fund of Knowledge: Poor fund of knowledge Memory: Poor-immediate, Poor-recent, Poor-remote Suicidal Ideation: None Homicidal Ideation: None Insight: Poor Judgement: Poor Impulse Control: Poor - Laboratory Result Diagrams: 09/06/17 20:15 09/06/17 20:15 Laboratory Results - last 24 hr 09/06/17 09/06/17 09/06/17 20:15 20:15 21:18 WBC 6.2 RBC 4.61 Hgb 14.7 Hct 44.7 MCV 97.0 MCH 31.9 MCHC 32.9 RDW Std Deviation 48.1 Plt Count 205 MPV 9.7 Immature Gran % (Auto) 0.2 Neut % (Auto) 80.0 H Lymph % (Auto) 12.4 L Burt % (Auto) 6.6 Eos % (Auto) 0.3 Baso % (Auto) 0.5 Neut # (Auto) 5.0 Lymph # (Auto) 0.8 L Burt # (Auto) 0.4 Eos # (Auto) 0.0 Baso # (Auto) 0.0 Abs Immat Gran (auto) 0.01 Turbidity < 20 Sodium 144 Potassium 3.6 Chloride 103 Carbon Dioxide 26 Anion Gap 15 BUN 17.0 Creatinine 0.6 L GFR Calculation 99 BUN/Creatinine Ratio 28 H Glucose 145 H Calculated Osmolality 282 H Calcium 9.2 Total Bilirubin 0.60 Icterus Index < 2 AST 23 ALT 17 Alkaline Phosphatase 77 Total Protein 7.6 Albumin 4.5 Globulin 3.1 Albumin/Globulin Ratio 1.5 Specimen Hemolysis < 15 Ur Collection Type Urine, cath straight Urine Color Yellow Urine Clarity Sl cloudy Urine pH 7.5 Ur Specific [place] 1.010 L Urine Protein Negative Urine Glucose (UA) Negative Urine Ketones Trace A Urine Occult Blood Negative Urine Nitrate Negative Urine Bilirubin Negative Urine Urobilinogen 0.2 Ur Leukocyte Esterase Trace A Urine RBC 1-3 Urine WBC 3-5 Ur Squamous Epith Cells 0-5 Amorphous Sediment Moderate Urine Bacteria 3+ H Urine Mucus Present Ur Culture Indicated? Cult not indicated Urinalysis Comment Microscopic not ind. Salicylates < 1.0 L Urine Opiates Screen Ur Oxycodone Screen Urine Methadone Screen Ur Propoxyphene Screen Acetaminophen < 10 L Ur Barbiturates Screen U Tricyclic Antidepress Ur Phencyclidine Scrn Ur Amphetamines Screen U Methamphetamines Scrn U Benzodiazepines Scrn Urine Cocaine Screen U Cannabinoids Screen Alcohol, Quantitative <10 09/06/17 21:18 WBC RBC Hgb Hct MCV MCH MCHC RDW Std Deviation Plt Count MPV Immature Gran % (Auto) Neut % (Auto) Lymph % (Auto) Burt % (Auto) Eos % (Auto) Baso % (Auto) Neut # (Auto) Lymph # (Auto) Burt # (Auto) Eos # (Auto) Baso # (Auto) Abs Immat Gran (auto) Turbidity Sodium Potassium Chloride Carbon Dioxide Anion Gap BUN Creatinine GFR Calculation BUN/Creatinine Ratio Glucose Calculated Osmolality Calcium Total Bilirubin Icterus Index AST ALT Alkaline Phosphatase Total Protein Albumin Globulin Albumin/Globulin Ratio Specimen Hemolysis Ur Collection Type Urine Color Urine Clarity Urine pH Ur Specific [place] Urine Protein Urine Glucose (UA) Urine Ketones Urine Occult Blood Urine Nitrate Urine Bilirubin Urine Urobilinogen Ur Leukocyte Esterase Urine RBC Urine WBC Ur Squamous Epith Cells Amorphous Sediment Urine Bacteria Urine Mucus Ur Culture Indicated? Urinalysis Comment Salicylates Urine Opiates Screen Negative Ur Oxycodone Screen Negative Urine Methadone Screen Negative Ur Propoxyphene Screen Negative Acetaminophen Ur Barbiturates Screen Negative U Tricyclic Antidepress Negative Ur Phencyclidine Scrn Negative Ur Amphetamines Screen Negative U Methamphetamines Scrn Negative U Benzodiazepines Scrn Negative Urine Cocaine Screen Negative U Cannabinoids Screen Negative Alcohol, Quantitative Assessment and Plan (1) Schizophrenia, unspecified Problem details: or other psychotic disorder. (MDD rec severe with psychosis versus possible delirium) Current visit: Yes Status: Acute Continue medical management. Will slightly decrease Sinemet. Will give Ativan 1mg PO x 1 to see if it is helpful with possible catatonia. If it is helpful will schedule Ativan TID.
[2017-09-07] MEDS: MIRTAZAPINE 45 MG TABLET PO SCH (20:24)
[2017-09-07] MEDS: DOCUSATE SODIUM 100 MG CAPSULE PO SCH (20:24)
[2017-09-07] MEDS: SUCRALFATE 1 GM TABLET PO SCH (20:24)
[2017-09-07] MEDS: SENNA + DOCUSATE TABLET PO SCH (20:24)
[2017-09-08] MEDS: PANTOPRAZOLE 40 MG TABLET PO SCH (06:14)
[2017-09-08] MEDS: ALBUTEROL/IPRATROPIUM 2.5mg-0.5mg/3ml NEB AEROSOL SCH ×2 (07:35→19:30)
--- NOTE | 2017-09-08 10:13 | CT Scan Report ---
Indication: decreased LOC PROCEDURE: CT head/brain wo con: Encounter: Initial Comparison: None Technique: Axial CT images through the head were performed without contrast. Iterative Reconstruction dose reducing technique was utilized. FINDINGS: Exam is limited due to image noise from reconstruction technique. The ventricles are of normal size, shape, and contour for the patient's age. There are scattered areas of low attenuation in the white matter which most likely represent changes from chronic microvascular ischemia. The brainstem, cerebellum, and cerebral hemispheres otherwise have a normal morphology and CT attenuation. There is no evidence of midline displacement. No hemorrhage, signs of acute territorial stroke, mass effect, mass lesions, or edema is evident. The visualized portions of the skull base, midface, and calvarium demonstrate no abnormality. The paranasal sinuses are well aerated and free of significant disease. Postoperative changes in the left mastoid. IMPRESSION: No acute intracranial abnormality or hemorrhage. There is a preliminary report by [facility]. .
[2017-09-08] MEDS: BACLOFEN 10 MG TABLET PO SCH ×2 (10:16→20:17)
[2017-09-08] MEDS: CELECOXIB 200 MG CAPSULE PO SCH (10:17)
[2017-09-08] MEDS: ESCITALOPRAM 10 MG TABLET PO SCH (10:17)
[2017-09-08] MEDS: CALCIUM 600 + VIT D 400 TABLET PO SCH (10:17)
[2017-09-08] MEDS: REFRESH CLASSIC Eye Drops 0.4ml EACH EYE SCH ×2 (10:17→21:33)
[2017-09-08] MEDS: ROPINIROLE 3 MG TABLET PO SCH ×3 (10:18→20:18)
[2017-09-08] MEDS: VITAMIN B COMPLEX + C TABLET PO SCH (10:18)
[2017-09-08] MEDS: POLYETHYL GLYCOL 3350 17gm PACKET PO SCH (10:18)
[2017-09-08] MEDS: LORazepam 1 MG TABLET PO SCH ×3 (10:24→20:20)
--- NOTE | 2017-09-08 11:59 | Neuropsych Progress Note ---
[facility] Subjective Date: 09/08/17 - Sujective/Severity of Illness Medications: Albuterol/Ipratropium (Duoneb) 3 ml AEROSOL Q2H PRN PRN Reason: Shortness of air/wheezing Albuterol/Ipratropium (Duoneb) 3 ml AEROSOL BID [facility] Last Admin: 09/08/17 07:35 Dose: 3 ml Artificial Tears (Refresh Classic) 1 drop EACH EYE BID [facility] Last Admin: 09/08/17 10:17 Dose: 1 drop Baclofen (Lioresal) 10 mg PO BID [facility] Last Admin: 09/08/17 10:16 Dose: 10 mg Calcium/Vitamin D (Caltrate + D) 1 tab PO DAILY [facility] Last Admin: 09/08/17 10:17 Dose: 1 tab Carbidopa/Levodopa (Sinemet) 2 tab PO 0630,1600,2000 [facility] Last Admin: 09/08/17 06:12 Dose: 2 tab Celecoxib (Celebrex) 200 mg PO DAILY [facility] Last Admin: 09/08/17 10:17 Dose: 200 mg Docusate Sodium (Colace) 100 mg PO [facility] Last Admin: 09/07/17 20:24 Dose: 100 mg Escitalopram Oxalate (Lexapro) 10 mg PO DAILY [facility] Last Admin: 09/08/17 10:17 Dose: 10 mg Fexofenadine HCl (Allyn) 180 mg PO DAILY PRN PRN Reason: Allergy symptoms Guaifenesin/Dextromethorphan (Robitussin Dm) 10 ml PO Q4H PRN PRN Reason: Cough Haloperidol (Haldol) 0.5 mg PO Q6H PRN PRN Reason: Extreme agitation Haloperidol Lactate (Haldol) 0.5 mg IM Q6H PRN PRN Reason: Extreme agitation Lorazepam (Ativan) 0.5 mg PO Q6H PRN PRN Reason: Extreme agitation Lorazepam (Ativan Inj) 0.5 mg IM Q6H PRN PRN Reason: Extreme agitation Lorazepam (Ativan) 0.5 mg PO TID [facility] Last Admin: 09/08/17 10:24 Dose: 0.5 mg Mirtazapine (Remeron) 45 mg PO HS [facility] Last Admin: 09/07/17 20:24 Dose: 45 mg Multivitamins (Total B + C) 1 tab PO DAILY [facility] Last Admin: 09/08/17 10:18 Dose: 1 tab Nystatin (Mycostatin) 1 applic TP BID PRN PRN Reason: Rash Pantoprazole Sodium (Protonix Tab) 40 mg PO ACB [facility] Last Admin: 09/08/17 06:14 Dose: 40 mg Polyethylene Glycol (Miralax) 17 gm PO DAILY [facility] Last Admin: 09/08/17 10:18 Dose: 17 gm Ropinirole HCl (Requip) 3 mg PO TID [facility] Last Admin: 09/08/17 10:18 Dose: 3 mg Senna/Docusate Sodium (Senna Plus Tablet) 1 tab PO HS [facility] Last Admin: 09/07/17 20:24 Dose: 1 tab Sucralfate (Carafate) 1 gm PO HS [facility] Last Admin: 09/07/17 20:24 Dose: 1 gm Tramadol HCl (Ultram) 50 mg PO TID PRN PRN Reason: Pain Triamcinolone Acetonide (Kenalog) 1 applic TOP TID PRN PRN Reason: PRN orders Subjective: Pt seen and chart examined. Nursing reprots pt slept well. Pt continues to speak on few words and is slow to respond. She is eating but very little with encouragement. She does not appear in any distress. Tolerating meds Start Time: 11:00 Stop Time: 11:15 Mental Status Exam Vitals: Last Vital Signs Temp 97.9 F 09/08/17 08:00 Pulse 89 09/08/17 08:00 Resp 22 09/08/17 08:00 BP 133/66 09/08/17 08:00 Pulse Ox 92 09/08/17 08:00 Height: 1.57 m Weight: 85.8 kg - Mental Status Exam Muscle Strength/Tone: Normal Dressing: Casual Grooming: Good Attitude: Cooperative Motor Activity: Retardation Eye Contact: Poor Speech: Slowed Volume: Soft Rhythm: Mumbled, Paucity of Language Orientation: Oriented to person Mood: Depressed Rate of Thoughts: Delayed Thought Organization: [place], Other Associations: Illogical Abstract Reasoning: Impaired, concrete Perception/Psychotic: Other Language: Naming Impaired Fund of Knowledge: Poor fund of knowledge Memory: Poor-immediate, Poor-recent, Poor-remote Suicidal Ideation: None Homicidal Ideation: None Insight: Poor Judgement: Poor Impulse Control: Poor - Laboratory Result Diagrams: 09/06/17 20:15 09/06/17 20:15 Laboratory Results - last 24 hr 09/06/17 20:51 TSH 2.62 Assessment and Plan (1) Major depressive disorder with psychotic features Current visit: Yes Status: Acute Continue Ativan TID. Spoke with patient yesterday and this seems to be more depressionwith psychosis than delirium. Pt is able to answer questions correctly just is slow to respond Hospital Course Summary Disclaimer: The visit summary below is not to be considered part of the above Progress Note. Hospital Course: Impression MDD with severe psychotic symptoms Parkinson's Disease GERD Allergies Urinary incontinence Constipation Plan Agree with admission to [facility] in the care of Dr. Burroughs for further psychiatric evaluation and treatment. Continue on Sinemet. 4. Chronic Parkinson's Carafate and Protonix for History of GERD and gastritis Miralax and Colace for chronic bowel motivation Will obtain a urine culture of urinalysis that was obtained in the emergency room to rule out infectious etiology. Given patient's reported urinary tract infection approximately 3 weeks ago. Encourage patient to report dyspnea, is improving a safe environment. The hospitalist services will continue follow patient medically manage existing comorbidities during her stay on the [facility] unit. At time of discharge, her medical care will return to primary care provider in [place], Dr. Brianne Llanes
[2017-09-08] MEDS: SUCRALFATE 1 GM TABLET PO SCH (20:17)
[2017-09-08] MEDS: SENNA + DOCUSATE TABLET PO SCH (20:17)
[2017-09-08] MEDS: MIRTAZAPINE 45 MG TABLET PO SCH (20:18)
[2017-09-08] MEDS: DOCUSATE SODIUM 100 MG CAPSULE PO SCH (20:23)
[2017-09-09] MEDS: PANTOPRAZOLE 40 MG TABLET PO SCH (06:20)
--- NOTE | 2017-09-09 08:58 | Neuropsych Progress Note ---
[facility] Subjective Date: 09/09/17 - Sujective/Severity of Illness Medications: Albuterol/Ipratropium (Duoneb) 3 ml AEROSOL Q2H PRN PRN Reason: Shortness of air/wheezing Albuterol/Ipratropium (Duoneb) 3 ml AEROSOL BID [facility] Last Admin: 09/08/17 19:30 Dose: 3 ml Artificial Tears (Refresh Classic) 1 drop EACH EYE BID [facility] Last Admin: 09/08/17 21:33 Dose: Not Given Baclofen (Lioresal) 10 mg PO BID [facility] Last Admin: 09/08/17 20:17 Dose: 10 mg Calcium/Vitamin D (Caltrate + D) 1 tab PO DAILY [facility] Last Admin: 09/08/17 10:17 Dose: 1 tab Carbidopa/Levodopa (Sinemet) 2 tab PO 0630,1600,2000 [facility] Last Admin: 09/09/17 06:20 Dose: 2 tab Celecoxib (Celebrex) 200 mg PO DAILY [facility] Last Admin: 09/08/17 10:17 Dose: 200 mg Docusate Sodium (Colace) 100 mg PO [facility] Last Admin: 09/08/17 20:23 Dose: 100 mg Escitalopram Oxalate (Lexapro) 10 mg PO DAILY [facility] Last Admin: 09/08/17 10:17 Dose: 10 mg Fexofenadine HCl (Allyn) 180 mg PO DAILY PRN PRN Reason: Allergy symptoms Guaifenesin/Dextromethorphan (Robitussin Dm) 10 ml PO Q4H PRN PRN Reason: Cough Haloperidol (Haldol) 0.5 mg PO Q6H PRN PRN Reason: Extreme agitation Haloperidol Lactate (Haldol) 0.5 mg IM Q6H PRN PRN Reason: Extreme agitation Lorazepam (Ativan) 0.5 mg PO Q6H PRN PRN Reason: Extreme agitation Lorazepam (Ativan Inj) 0.5 mg IM Q6H PRN PRN Reason: Extreme agitation Lorazepam (Ativan) 0.5 mg PO TID [facility] Last Admin: 09/08/17 20:20 Dose: 0.5 mg Mirtazapine (Remeron) 45 mg PO HS [facility] Last Admin: 09/08/17 20:18 Dose: 45 mg Multivitamins (Total B + C) 1 tab PO DAILY [facility] Last Admin: 09/08/17 10:18 Dose: 1 tab Nystatin (Mycostatin) 1 applic TP BID PRN PRN Reason: Rash Pantoprazole Sodium (Protonix Tab) 40 mg PO ACB [facility] Last Admin: 09/09/17 06:20 Dose: 40 mg Polyethylene Glycol (Miralax) 17 gm PO DAILY [facility] Last Admin: 09/08/17 10:18 Dose: 17 gm Ropinirole HCl (Requip) 3 mg PO TID [facility] Last Admin: 09/08/17 20:18 Dose: 3 mg Senna/Docusate Sodium (Senna Plus Tablet) 1 tab PO HS [facility] Last Admin: 09/08/17 20:17 Dose: 1 tab Sucralfate (Carafate) 1 gm PO HS [facility] Last Admin: 09/08/17 20:17 Dose: 1 gm Tramadol HCl (Ultram) 50 mg PO TID PRN PRN Reason: Pain Triamcinolone Acetonide (Kenalog) 1 applic TOP TID PRN PRN Reason: PRN orders Subjective: Patient seen and chart reviewed. Case discussed with treatment team. On interview, patient is sitting in chair in dayroom. She has her eyes closed and makes soft moans/vocalizations but does not answer any questions. She is later observed with her sister on the unit and her eyes are open, and she is willing to drink from a straw for her. Patient is eating very little and only with staff assistance. Nursing staff report patient has behaved similarly over the past 24 hours. It has been difficult to get patient to take medications. Patient slept 8.5 hours overnight. VSS. Psychotropic PRNs required in the past 24 hours: none. Start Time: 08:00 Stop Time: 08:40 Mental Status Exam Vitals: Last Vital Signs Temp 97.0 F 09/08/17 19:12 Pulse 79 09/08/17 19:12 Resp 18 09/08/17 21:20 BP 122/61 09/08/17 19:12 Pulse Ox 96 09/08/17 19:30 Height: 1.57 m Weight: 85.8 kg - Mental Status Exam Muscle Strength/Tone: Weak Dressing: Casual Grooming: Fair Attitude: Uncooperative Motor Activity: Retardation Eye Contact: Poor Speech: Slowed Volume: Soft Rhythm: Mumbled, Paucity of Language Sensory: Other (Appears catatonic) Orientation: Oriented to person Mood: Other (unable to elicit from patient) Affect: Blunted (appears catatonic) Rate of Thoughts: Delayed Thought Organization: [employer], Other (will not participate in interview) Associations: Illogical Abstract Reasoning: Impaired, concrete Thought Content: Other Perception/Psychotic: Other (does not appear to be responding to internal stimuli) Language: Naming Impaired Fund of Knowledge: Poor fund of knowledge Memory: Poor-immediate, Poor-recent, Poor-remote Suicidal Ideation: None Homicidal Ideation: None Insight: Impaired Judgement: Impaired Impulse Control: Poor - Laboratory Result Diagrams: 09/06/17 20:15 09/06/17 20:15 Laboratory Results - last 24 hr 09/09/17 08:20 Hemoglobin A1c 5.3 Triglycerides 85 Cholesterol 210 H LDL Cholesterol, Calc 144.0 VLDL Cholesterol 17.0 HDL Cholesterol 49 Cholesterol/HDL Ratio 4.3 H Assessment and Plan (1) Major depressive disorder, recurrent episode, severe with catatonia Problem details: with psychotic features Current visit: Yes Status: Acute (2) Parkinson disease Current visit: Yes Status: Acute Discussed multiple treatment options, prognosis, diagnosis with sister/DPOA. ECT will not be available in [place] for several weeks. Will look into other options in nearby [facility]. For now, will make the following medication changes: - Decrease Baclofen to 5mg PO TID - Decrease Requip to 2mg PO TID - Discontinue tramadol - Decrease Remeron to 30mg PO q HS (plan to switch to another antidepressant) - Decrease Sinemet to 25mg in AM, 25mg in afternoon, 50mg at HS - Increase Ativan to 1mg PO TID - Discontinue PRN Haldol Will request dietary consult and encourage any PO intake. Hospital Course Summary Disclaimer: The visit summary below is not to be considered part of the above Progress Note. Hospital Course: Impression MDD with severe psychotic symptoms Parkinson's Disease GERD Allergies Urinary incontinence Constipation Plan Agree with admission to [facility] in the care of Dr. Burroughs for further psychiatric evaluation and treatment. Continue on Sinemet. 4. Chronic Parkinson's Carafate and Protonix for History of GERD and gastritis Miralax and Colace for chronic bowel motivation Will obtain a urine culture of urinalysis that was obtained in the emergency room to rule out infectious etiology. Given patient's reported urinary tract infection approximately 3 weeks ago. Encourage patient to report dyspnea, is improving a safe environment. The hospitalist services will continue follow patient medically manage existing comorbidities during her stay on the [facility]. At time of discharge, her medical care will return to primary care provider in [place], Dr. Brianne Llanes Psych 09/09/17: Discussed multiple treatment options, prognosis, diagnosis with sister/DPOA. ECT will not be available in [place] for several weeks. Will look into other options in nearby [facility]. For now, will make the following medication changes: - Decrease Baclofen to 5mg PO TID - Decrease Requip to 2mg PO TID - Discontinue tramadol - Decrease Remeron to 30mg PO q HS (plan to switch to another antidepressant) - Decrease Sinemet to 25mg in AM, 25mg in afternoon, 50mg at HS - Increase Ativan to 1mg PO TID - Discontinue PRN Haldol Will request dietary consult and encourage any PO intake.
[2017-09-09] MEDS: BACLOFEN 10 MG TABLET PO SCH ×2 (09:01→09:51)
[2017-09-09] MEDS: ESCITALOPRAM 10 MG TABLET PO SCH (09:01)
[2017-09-09] MEDS: CELECOXIB 200 MG CAPSULE PO SCH ×2 (09:01→09:51)
[2017-09-09] MEDS: LORazepam 1 MG TABLET PO SCH (09:01)
[2017-09-09] MEDS: CALCIUM 600 + VIT D 400 TABLET PO SCH ×2 (09:01→09:51)
[2017-09-09] MEDS: POLYETHYL GLYCOL 3350 17gm PACKET PO SCH (09:02)
[2017-09-09] MEDS: ROPINIROLE 3 MG TABLET PO SCH ×2 (09:02→09:51)
[2017-09-09] MEDS: VITAMIN B COMPLEX + C TABLET PO SCH ×2 (09:02→09:51)
[2017-09-09] MEDS: REFRESH CLASSIC Eye Drops 0.4ml EACH EYE SCH ×3 (09:02→19:59)
[2017-09-09] MEDS ORDERED: LORazepam INTENSOL 1mg/0.5ml ORAL LIQUID PO ONE (09:27)
[2017-09-09] MEDS: ALBUTEROL/IPRATROPIUM 2.5mg-0.5mg/3ml NEB AEROSOL SCH ×2 (09:31→20:00)
[2017-09-09] MEDS: LORazepam INTENSOL 1mg/0.5ml ORAL LIQUID PO SCH ×4 (09:50→21:29)
[2017-09-09] MEDS ORDERED: LORazepam 0.5 MG TABLET PO SCH (15:00)
[2017-09-09] MEDS: ROPINIROLE 2 MG TABLET PO SCH ×2 (16:38→20:00)
--- NOTE | 2017-09-09 18:43 | Progress Note ---
- Date 09/09/17 Subjective: Marva was seen at the request of her sister and the staff. She's been more lethargic today -- so much that she barely responds. Per her sister, this is unusual - she's an active and conversational person at baseline. Her sister, an RN, is very concerned that she is dehydrated. Prior to 09/06, she historically has been a good eater and keeps up on fluids well. However, since then she's hardly had any oral intake - water or food. Her sister denies any cough/ congestion. She states that she's had incontinent bowel movements ever since being on Keflex for E. coli UTI on 08/17/17, but isn't sure if it's been loose/ diarrhea. In fact, she doesn't think she's had a bowel movement since arrival. Her sister denies seeing fever, chills, or sweating. Objective Vital signs: Temperature 98.1 F 09/09/17 16:00 Pulse Rate 83 09/09/17 16:00 Respiratory Rate 16 09/09/17 16:00 Blood Pressure 152/85 H 09/09/17 16:00 Pulse Oximetry 98 09/09/17 16:00 Height/Weight/BMI: Height 1.57 m Weight 85.8 kg Body Mass Index 34.6 - Constitutional Present: well nourished, well developed, obese - Routine HEENT Exam Eye: Absent: conjunctival icterus, scleral injection ENT: Present: mucous membranes dry (tongue is very dry) - Routine Respiratory Exam Present: CTA bilaterally - Routine Cardiovascular Exam Present: RRR, S1, S2, murmur (2/6 MEAGHAN) - Routine Abdominal Exam Present: soft, normoactive bowel sounds, non distended, non tender - Routine Extremities Exam Present: no edema - Routine Musculoskeletal Exam Musculoskeletal: Present: no clubbing or cyanosis - Routine Skin Exam Present: intact, dry, warm - Routine Neurological Exam Absent: alert, CN II-XII intact, normal speech - Routine Psychiatric Exam Present: unable to assess Results - Labs CBC & Chem 7: 09/09/17 18:45 09/11/17 07:05 Microbiology Results: Microbiology 09/08/17 14:12 Urine, Voided (Cc/notcc) Urine Culture - Preliminary Early growth Assessment and Plan Assessment and Plan: Impression Dehydration, altered mental status MDD with severe psychotic symptoms Parkinson's Disease GERD Allergies Urinary incontinence Constipation Plan Patient clinically appears dehydrated. Will assess labs including CBC, BMP, Mg, UA, and also CXR d/t altered mental status. Initial labs showed Na high-normal, K low-normal, stable renal function. WBC was normal, hgb was normal. Start NS @ 100 mL/hr, and I've asked staff to call me on my cell with any abnormal values to make adjustments to orders tonight. Prior UC from July was + E. coli, sensitive to 1st gen cephalosporins with an MALISSA of 16 -- she was treated with Keflex. Repeat UC from [facility] admit is showing preliminary growth. She's at risk for C. diff given recent abx use. If she develops diarrhea we will follow the stool collection protocol. TSH and vitamin B12 were unremarkable. Hgb A1c was 5.3%. Patient was seen simultaneously with Dr. Lucas, who formulated this plan. If labs are grossly abnormal with indication for medical admission, we will look into transfer to medical floor. Also, sister wished to inform me that she is not interested in trialing the oral option for ECT at this time. She also [place]. Resuscitation Status: Do Not Resuscitate - Time spent with patient Time with patient PN: 30 minutes - Physician Narrative Narrative: Date: 09/09/17 Time: 1841 Seen and examined patient o in tandem with nurse practitioner Kesha Blue. Agree with note patient, physical, assessment and plan. Comprehensive physical findings correlate to the above note. HPI: history of severe depression requiring ECT but story sounds reflective of developing urinary tract infection PMH/SH/FH: as per above ROS: no further information from 10 system review Exam: Gen.:no apparent distress, moderately browsable to noxious stimuli HEENT: normocephalic atraumatic, oral mucosa moderately dry neck: no lymphadenopathy no jugular venous distention respiratory: there to auscultation bilaterally with good excursion cardiovascular: cardiovascular S1 S2 no adventitious murmurs rubs or gallops abdomen/GI: soft nondistended with bowel sounds extremities: good peripheral perfusion with no edema skin/integument: no significant injuries or edema neuro: responsive to direct questions minimally. No focal deficits appreciable psych: unable to assess Labs: reviewed labs from prior and ordering repeat chest x-ray and urinalysis Suspect UTI: have discussed with patient's family Documented on Dragon speech to text. Efforts to correct speech recognition errors performed, but variation may exist Hospital Course Summary Disclaimer: The visit summary below is not to be considered part of the above Progress Note. Hospital Course: Impression MDD with severe psychotic symptoms Parkinson's Disease GERD Allergies Urinary incontinence Constipation Plan Agree with admission to [facility] in the care of Dr. Burroughs for further psychiatric evaluation and treatment. Continue on Sinemet. 4. Chronic Parkinson's Carafate and Protonix for History of GERD and gastritis Miralax and Colace for chronic bowel motivation Will obtain a urine culture of urinalysis that was obtained in the emergency room to rule out infectious etiology. Given patient's reported urinary tract infection approximately 3 weeks ago. Encourage patient to report dyspnea, is improving a safe environment. The hospitalist services will continue follow patient medically manage existing comorbidities during her stay on the [facility] unit. At time of discharge, her medical care will return to primary care provider in [place], Dr. Brianne Llanes Psych 09/09/17: Discussed multiple treatment options, prognosis, diagnosis with sister/DPOA. ECT will not be available in [place] for several weeks. Will look into other options in nearby [facility]. For now, will make the following medication changes: - Decrease Baclofen to 5mg PO TID - Decrease Requip to 2mg PO TID - Discontinue tramadol - Decrease Remeron to 30mg PO q HS (plan to switch to another antidepressant) - Decrease Sinemet to 25mg in AM, 25mg in afternoon, 50mg at HS - Increase Ativan to 1mg PO TID - Discontinue PRN Haldol Will request dietary consult and encourage any PO intake. 09/09/17 Patient clinically appears dehydrated. Will assess labs including CBC, BMP, Mg, UA, and also CXR d/t altered mental status. Initial labs showed Na high-normal, K low-normal, stable renal function. WBC was normal, hgb was normal. Start NS @ 100 mL/hr, and I've asked staff to call me on my cell with any abnormal values to make adjustments to orders tonight. Prior UC from July was + E. coli, sensitive to 1st gen cephalosporins with an MALISSA of 16 -- she was treated with Keflex. Repeat UC from [facility] admit is showing preliminary growth. She's at risk for C. diff given recent abx use. If she develops diarrhea we will follow the stool collection protocol. TSH and vitamin B12 were unremarkable. Hgb A1c was 5.3%. Patient was seen simultaneously with Dr. Lucas, who formulated this plan. Also, sister wished to inform me that she is not interested in trialing the oral option for ECT at this time. She also does not plan on [place] Mar[place] state [place].
[2017-09-09] MEDS: NS 1,000 ML IV SCH (19:35)
[2017-09-09] MEDS: MIRTAZAPINE 30 MG TABLET PO SCH ×2 (19:58→21:29)
[2017-09-09] MEDS: DOCUSATE SODIUM 100 MG CAPSULE PO SCH ×2 (19:58→21:28)
[2017-09-09] MEDS: SENNA + DOCUSATE TABLET PO SCH (20:00)
[2017-09-09] MEDS: SUCRALFATE 1 GM TABLET PO SCH (20:00)
[2017-09-09] MEDS ORDERED: LORazepam INTENSOL 1mg/0.5ml ORAL LIQUID SL ONE (21:00)
[2017-09-09] MEDS ORDERED: BACLOFEN 10 MG TABLET PO SCH (21:00)
[2017-09-10] MEDS: NS 1,000 ML IV SCH (05:35)
[2017-09-10] MEDS: PANTOPRAZOLE 40 MG TABLET PO SCH (05:36)
[2017-09-10] MEDS: ALBUTEROL/IPRATROPIUM 2.5mg-0.5mg/3ml NEB AEROSOL SCH ×2 (07:19→20:36)
[2017-09-10] MEDS: LORazepam INTENSOL 1mg/0.5ml ORAL LIQUID PO SCH ×3 (07:45→20:29)
--- NOTE | 2017-09-10 08:16 | Progress Note ---
- Date 09/10/17 Subjective: Marva was finishing getting dressed for breakfast. She was speaking with the nurse and answering questions, but she only moaned when I asked her questions. She had an uneventful night; she's been cooperative with cares so far this morning. She is on her second liter of NS. She has a thick coating on her tongue that staff is unable to brush off. Objective Vital signs: Temperature 97.2 F 09/09/17 20:04 Pulse Rate 82 09/09/17 20:04 Respiratory Rate 25 H 09/10/17 07:19 Blood Pressure 141/97 H 09/09/17 20:04 Pulse Oximetry 95 09/10/17 07:19 Height/Weight/BMI: Height 1.57 m Weight 85.8 kg Body Mass Index 34.6 - Constitutional Present: well nourished, well developed, obese - Routine HEENT Exam ENT: Present: mucous membranes dry. Absent: oropharynx clear (white/chávez coating on tongue) - Routine Respiratory Exam Present: CTA bilaterally - Routine Cardiovascular Exam Present: RRR, S1, S2, murmur (2/6 MEAGHAN) - Routine Abdominal Exam Present: soft, normoactive bowel sounds, non distended, non tender - Routine Extremities Exam Present: no edema - Routine Skin Exam Present: intact, dry, warm - Routine Neurological Exam Present: alert - Routine Psychiatric Exam Present: cooperative Results - Labs CBC & Chem 7: 09/09/17 18:45 09/09/17 18:45 Microbiology Results: Microbiology 09/08/17 14:12 Urine, Voided (Cc/notcc) Urine Culture - Preliminary Early growth Assessment and Plan (1) Depression, major, recurrent, severe with psychosis Current visit: Yes Status: Acute Assessment and Plan: Impression Dehydration, altered mental status MDD with severe psychotic symptoms Parkinson's Disease GERD Allergies Urinary incontinence Constipation Thrush Plan Labs reviewed; overall stable. UA and CXR still pending. DC IVF after the 2nd liter. Recommend to keep IV in place for now. Repeat BMP in am. UC growing 2 different Gram pos cocci. Cont to follow. Start nystatin for thrush. Discussed with Dr. Burroughs last night. Resuscitation Status: Do Not Resuscitate - Physician Narrative Narrative: Date: 09/10/17 Time: 812 Hospital Course Summary Disclaimer: The visit summary below is not to be considered part of the above Progress Note. Hospital Course: Impression MDD with severe psychotic symptoms Parkinson's Disease GERD Allergies Urinary incontinence Constipation Plan Agree with admission to [facility] in the care of Dr. Burroughs for further psychiatric evaluation and treatment. Continue on Sinemet. 4. Chronic Parkinson's Carafate and Protonix for History of GERD and gastritis Miralax and Colace for chronic bowel motivation Will obtain a urine culture of urinalysis that was obtained in the emergency room to rule out infectious etiology. Given patient's reported urinary tract infection approximately 3 weeks ago. Encourage patient to report dyspnea, is improving a safe environment. The hospitalist services will continue follow patient medically manage existing comorbidities during her stay on the [facility] unit. At time of discharge, her medical care will return to primary care provider in [place], Dr. Brianne Llanes Psych 09/09/17: Discussed multiple treatment options, prognosis, diagnosis with sister/DPOA. ECT will not be available in [place] for several weeks. Will look into other options in nearby [facility]. For now, will make the following medication changes: - Decrease Baclofen to 5mg PO TID - Decrease Requip to 2mg PO TID - Discontinue tramadol - Decrease Remeron to 30mg PO q HS (plan to switch to another antidepressant) - Decrease Sinemet to 25mg in AM, 25mg in afternoon, 50mg at HS - Increase Ativan to 1mg PO TID - Discontinue PRN Haldol Will request dietary consult and encourage any PO intake. 09/09/17 Patient clinically appears dehydrated. Will assess labs including CBC, BMP, Mg, UA, and also CXR d/t altered mental status. Initial labs showed Na high-normal, K low-normal, stable renal function. WBC was normal, hgb was normal. Start NS @ 100 mL/hr, and I've asked staff to call me on my cell with any abnormal values to make adjustments to orders tonight. Prior UC from July was + E. coli, sensitive to 1st gen cephalosporins with an MALISSA of 16 -- she was treated with Keflex. Repeat UC from [facility] admit is showing preliminary growth. She's at risk for C. diff given recent abx use. If she develops diarrhea we will follow the stool collection protocol. TSH and vitamin B12 were unremarkable. Hgb A1c was 5.3%. Patient was seen simultaneously with Dr. Lucas, who formulated this plan. Also, sister wished to inform me that she is not interested in trialing the oral option for ECT at this time. She also does [place] plan [place]. 09/10/17 Labs reviewed; overall stable. UA and CXR still pending. DC IVF after the 2nd liter. Recommend to keep IV in place for now. Repeat BMP in am. UC growing 2 different Gram pos cocci. Cont to follow. Start nystatin for thrush.
[2017-09-10] MEDS: CELECOXIB 200 MG CAPSULE PO SCH (08:45)
[2017-09-10] MEDS: POLYETHYL GLYCOL 3350 17gm PACKET PO SCH (08:45)
[2017-09-10] MEDS: REFRESH CLASSIC Eye Drops 0.4ml EACH EYE SCH ×2 (08:46→20:30)
--- NOTE | 2017-09-10 10:01 | XRay Report ---
Indication: drowsiness PROCEDURE: XR chest 1V: Encounter: Initial Comparison: April 10, 2015 Findings: No focal consolidative pneumonia. No pleural effusion or pneumothorax. Heart size and mediastinal contours are within normal limits. Pulmonary vascularity is grossly normal. Impression: No acute cardiopulmonary disease. .
[2017-09-10] MEDS: NYSTATIN 500,000 units/5 ml ORAL LIQUID PO SCH ×4 (10:11→20:30)
--- NOTE | 2017-09-10 14:03 | Neuropsych Progress Note ---
[facility] Subjective Date: 09/11/17 - Sujective/Severity of Illness Medications: Albuterol/Ipratropium (Duoneb) 3 ml AEROSOL Q2H PRN PRN Reason: Shortness of air/wheezing Albuterol/Ipratropium (Duoneb) 3 ml AEROSOL BID [facility] Last Admin: 09/10/17 07:19 Dose: 3 ml Artificial Tears (Refresh Classic) 1 drop EACH EYE BID [facility] Last Admin: 09/10/17 08:46 Dose: 1 drop Calcium/Vitamin D (Caltrate + D) 1 tab PO DAILY [facility] Last Admin: 09/09/17 09:51 Dose: Not Given Carbidopa/Levodopa (Sinemet) 1 tab PO 0900,1500 [facility] Last Admin: 09/10/17 08:45 Dose: 1 tab Carbidopa/Levodopa (Sinemet) 2 tab PO 2100 [facility] Last Admin: 09/09/17 21:28 Dose: Not Given Celecoxib (Celebrex) 200 mg PO DAILY [facility] Last Admin: 09/10/17 08:45 Dose: 200 mg Docusate Sodium (Colace) 100 mg PO [facility] Last Admin: 09/09/17 21:28 Dose: Not Given Fexofenadine HCl (Allyn) 180 mg PO DAILY PRN PRN Reason: Allergy symptoms Lorazepam (Ativan Intensol) 2 mg PO TID [facility] Last Admin: 09/10/17 07:45 Dose: 2 mg Magnesium Hydroxide (Mom) 30 ml PO DAILY PRN PRN Reason: Constipation Last Admin: 09/10/17 08:54 Dose: 30 ml Mirtazapine (Remeron) 30 mg PO HS [facility] Last Admin: 09/09/17 21:29 Dose: Not Given Multivitamins (Total B + C) 1 tab PO DAILY [facility] Last Admin: 09/09/17 09:51 Dose: Not Given Nystatin (Mycostatin) 1 applic TP BID PRN PRN Reason: Rash Nystatin (Mycostatin) 5 ml PO QID [facility] Last Admin: 09/10/17 10:11 Dose: 2.5 ml Pantoprazole Sodium (Protonix Tab) 40 mg PO ACB [facility] Last Admin: 09/10/17 05:36 Dose: 40 mg Polyethylene Glycol (Miralax) 17 gm PO DAILY [facility] Last Admin: 09/10/17 08:45 Dose: 17 gm Senna/Docusate Sodium (Senna Plus Tablet) 1 tab PO HS [facility] Last Admin: 09/09/17 20:00 Dose: 1 tab Sucralfate (Carafate) 1 gm PO [facility] Last Admin: 09/09/17 20:00 Dose: 1 gm Triamcinolone Acetonide (Kenalog) 1 applic TOP TID PRN PRN Reason: PRN orders Subjective: Patient seen and chart reviewed. Case discussed with treatment team. On interview, patient is lying in bed in her room with sister at bedside. She does not respond to my attempts at interview. However sister and staff report increased responsiveness, increased fluid intake since last evening (likely response to increased dose of Ativan). I have spent ~60 minutes with sister/ DPOA in discussion of symptoms, diagnosis, treatment plan and answering all questions she has. ECT is not available at this time in any feasible area. It has been difficult to get patient to take medications. Patient slept 8.25 hours overnight. VSS. Psychotropic PRNs required in the past 24 hours: none. UA culture pending. Start Time: 13:00 Stop Time: 14:00 Mental Status Exam Vitals: Last Vital Signs Temp 96.9 F 09/10/17 08:00 Pulse 87 09/10/17 08:00 Resp 20 09/10/17 08:00 BP 133/64 09/10/17 08:00 Pulse Ox 96 09/10/17 08:00 Height: 1.57 m Weight: 85.8 kg - Mental Status Exam Muscle Strength/Tone: Weak Dressing: Casual Grooming: Fair Attitude: Uncooperative Motor Activity: Retardation Eye Contact: Poor Speech: Slowed Volume: Soft Rhythm: Mumbled, Paucity of Language Orientation: Oriented to person Mood: Other (unable to elicit from patient, appears catatonic) Rate of Thoughts: Delayed Thought Organization: [place], Other (will not participate in interview) Associations: Illogical Abstract Reasoning: Impaired, concrete Thought Content: Other Perception/Psychotic: Other (does not appear to be responding to internal stimuli) Language: Naming Impaired Fund of Knowledge: Poor fund of knowledge Memory: Poor-immediate, Poor-recent, Poor-remote Suicidal Ideation: None Homicidal Ideation: None Insight: Impaired Judgement: Impaired Impulse Control: Poor - Laboratory Result Diagrams: 09/09/17 18:45 09/11/17 07:05 Laboratory Results - last 24 hr 09/09/17 09/09/17 18:45 18:45 WBC 4.9 RBC 4.65 Hgb 14.9 Hct 45.2 MCV 97.2 MCH 32.0 MCHC 33.0 RDW Std Deviation 47.7 Plt Count 181 MPV 9.6 Immature Gran % (Auto) 0.2 Neut % (Auto) 68.7 H Lymph % (Auto) 19.1 L [place] % (Auto) 8.1 Eos % (Auto) 3.3 Baso % (Auto) 0.6 Neut # (Auto) 3.4 Lymph # (Auto) 0.9 L [place] # (Auto) 0.4 Eos # (Auto) 0.2 Baso # (Auto) 0.0 Abs Immat Gran (auto) 0.01 Turbidity < 20 Sodium 144 Potassium 3.7 Chloride 104 Carbon Dioxide 29 Anion Gap 11 BUN 20.0 H Creatinine 0.6 L GFR Calculation 99 BUN/Creatinine Ratio 33 H Glucose 141 H Calculated Osmolality 282 H Calcium 9.1 Magnesium 2.2 Icterus Index < 2 Specimen Hemolysis < 15 Assessment and Plan (1) Major depressive disorder, recurrent episode, severe with catatonia Problem details: with psychotic features Current visit: Yes Status: Acute (2) Parkinson disease Current visit: Yes Status: Acute Continue current care, monitoring response to increased dose of lorazepam. Hospital Course Summary Disclaimer: The visit summary below is not to be considered part of the above Progress Note. Hospital Course: Impression MDD with severe psychotic symptoms Parkinson's Disease GERD Allergies Urinary incontinence Constipation Plan Agree with admission to [facility] in the care of Dr. Burroughs for further psychiatric evaluation and treatment. Continue on Sinemet. 4. Chronic Parkinson's Carafate and Protonix for History of GERD and gastritis Miralax and Colace for chronic bowel motivation Will obtain a urine culture of urinalysis that was obtained in the emergency room to rule out infectious etiology. Given patient's reported urinary tract infection approximately 3 weeks ago. Encourage patient to report dyspnea, is improving a safe environment. The hospitalist services will continue follow patient medically manage existing comorbidities during her stay on the [facility] unit. At time of discharge, her medical care will return to primary care provider in [place], Dr. Brianne Llanes Psych 09/09/17: Discussed multiple treatment options, prognosis, diagnosis with sister/DPOA. ECT will not be available in [place] for several weeks. Will look into other options in nearby cities. For now, will make the following medication changes: - Decrease Baclofen to 5mg PO TID - Decrease Requip to 2mg PO TID - Discontinue tramadol - Decrease Remeron to 30mg PO q HS (plan to switch to another antidepressant) - Decrease Sinemet to 25mg in AM, 25mg in afternoon, 50mg at HS - Increase Ativan to 1mg PO TID - Discontinue PRN Haldol Will request dietary consult and encourage any PO intake. 09/09/17 Patient clinically appears dehydrated. Will assess labs including CBC, BMP, Mg, UA, and also CXR d/t altered mental status. Initial labs showed Na high-normal, K low-normal, stable renal function. WBC was normal, hgb was normal. Start NS @ 100 mL/hr, and I've asked staff to call me on my cell with any abnormal values to make adjustments to orders tonight. Prior UC from July was + E. coli, sensitive to 1st gen cephalosporins with an MALISSA of 16 -- she was treated with Keflex. Repeat UC from [facility] is showing preliminary growth. She's at risk for C. diff given recent abx use. If she develops diarrhea we will follow the stool collection protocol. TSH and vitamin B12 were unremarkable. Hgb A1c was 5.3%. Patient was seen simultaneously with Dr. Lucas, who formulated this plan. Also, sister wished to inform me that she is not interested in trialing the oral option for ECT at this time. She also does not plan [place]. 09/10/17 Labs reviewed; overall stable. UA and CXR still pending. DC IVF after the 2nd liter. Recommend to keep IV in place for now. Repeat BMP in am. UC growing 2 different Gram pos cocci. Cont to follow. Start nystatin for thrush. 09/10/17 Psych: Continue current care, monitoring response to increased dose of lorazepam.
[2017-09-10] MEDS: SENNA + DOCUSATE TABLET PO SCH (20:29)
[2017-09-10] MEDS: DOCUSATE SODIUM 100 MG CAPSULE PO SCH (20:29)
[2017-09-10] MEDS: MIRTAZAPINE 30 MG TABLET PO SCH (20:30)
[2017-09-10] MEDS: SUCRALFATE 1 GM TABLET PO SCH (20:30)
[2017-09-11] MEDS: LORazepam INTENSOL 1mg/0.5ml ORAL LIQUID PO SCH ×4 (08:15→20:46)
[2017-09-11] MEDS: NYSTATIN 500,000 units/5 ml ORAL LIQUID PO SCH ×4 (08:17→20:47)
[2017-09-11] MEDS: POLYETHYL GLYCOL 3350 17gm PACKET PO SCH (08:41)
[2017-09-11] MEDS: PANTOPRAZOLE 40 MG TABLET PO SCH (08:42)
[2017-09-11] MEDS: CELECOXIB 200 MG CAPSULE PO SCH (08:42)
[2017-09-11] MEDS: REFRESH CLASSIC Eye Drops 0.4ml EACH EYE SCH ×2 (08:42→20:50)
[2017-09-11] MEDS: ALBUTEROL/IPRATROPIUM 2.5mg-0.5mg/3ml NEB AEROSOL SCH ×2 (09:20→20:55)
[2017-09-11] MEDS ORDERED: LORazepam INTENSOL 1mg/0.5ml ORAL LIQUID PO ONE (09:30)
--- NOTE | 2017-09-11 09:46 | Neuropsych Progress Note ---
[facility] Subjective Date: 09/11/17 - Sujective/Severity of Illness Medications: Albuterol/Ipratropium (Duoneb) 3 ml AEROSOL Q2H PRN PRN Reason: Shortness of air/wheezing Albuterol/Ipratropium (Duoneb) 3 ml AEROSOL BID [facility] Last Admin: 09/11/17 09:20 Dose: 3 ml Artificial Tears (Refresh Classic) 1 drop EACH EYE BID [facility] Last Admin: 09/11/17 08:42 Dose: 1 drop Calcium/Vitamin D (Caltrate + D) 1 tab PO DAILY [facility] Last Admin: 09/09/17 09:51 Dose: Not Given Carbidopa/Levodopa (Sinemet) 2 tab PO 2100 [facility] Last Admin: 09/10/17 20:29 Dose: 2 tab Carbidopa/Levodopa (Sinemet) 0.5 tab PO 0900,1500 [facility] Celecoxib (Celebrex) 200 mg PO DAILY [facility] Last Admin: 09/11/17 08:42 Dose: 200 mg Docusate Sodium (Colace) 100 mg PO HS [facility] Last Admin: 09/10/17 20:29 Dose: 100 mg Fexofenadine HCl (Allyn) 180 mg PO DAILY PRN PRN Reason: Allergy symptoms Lorazepam (Ativan Intensol) 3 mg PO TID [facility] Lorazepam (Ativan Intensol) 1 mg PO O ONE Stop: 09/11/17 09:31 Last Admin: 09/11/17 09:41 Dose: 1 mg Magnesium Hydroxide (Mom) 30 ml PO DAILY PRN PRN Reason: Constipation Last Admin: 09/10/17 08:54 Dose: 30 ml Mirtazapine (Remeron) 30 mg PO HS [facility] Last Admin: 09/10/17 20:30 Dose: 30 mg Multivitamins (Total B + C) 1 tab PO DAILY [facility] Last Admin: 09/09/17 09:51 Dose: Not Given Nystatin (Mycostatin) 1 applic TP BID PRN PRN Reason: Rash Nystatin (Mycostatin) 5 ml PO QID [facility] Last Admin: 09/11/17 08:17 Dose: 5 ml Pantoprazole Sodium (Protonix Tab) 40 mg PO ACB [facility] Last Admin: 09/11/17 08:42 Dose: 40 mg Polyethylene Glycol (Miralax) 17 gm PO DAILY [facility] Last Admin: 09/11/17 08:41 Dose: 17 gm Senna/Docusate Sodium (Senna Plus Tablet) 1 tab PO HS [facility] Last Admin: 09/10/17 20:29 Dose: 1 tab Sucralfate (Carafate) 1 gm PO HS [facility] Last Admin: 09/10/17 20:30 Dose: 1 gm Triamcinolone Acetonide (Kenalog) 1 applic TOP TID PRN PRN Reason: PRN orders Venlafaxine HCl (Effexor Xr) 75 mg PO WB [facility] Subjective: Patient seen and chart reviewed. Case discussed with treatment team. On interview, patient is sitting in dayroom. She does not respond verbally but squeezes my hand when asked, and makes an indication through sound that she is feeling well when I asked her. Patient is later observed slightly opening her eyes and looking around. The nurse reported that she responded to her, "It's good to see you too" this morning. It has been difficult to get patient to take medications. Patient slept 9 hours overnight. VSS. Psychotropic PRNs required in the past 24 hours: none. UA culture pending. Discussion of care with o/p provider Dr. 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 Start Time: 07:00 Stop Time: 07:40 Mental Status Exam Vitals: Last Vital Signs Temp 98.3 F 09/11/17 08:00 Pulse 87 09/11/17 08:00 Resp 16 09/11/17 09:20 BP 151/67 H 09/11/17 08:00 Pulse Ox 97 09/11/17 08:00 Height: 1.57 m Weight: 85.8 kg - Mental Status Exam Muscle Strength/Tone: Weak Dressing: Casual Grooming: Fair Attitude: Uncooperative Motor Activity: Retardation Eye Contact: Poor Speech: Slowed Volume: Soft Rhythm: Mumbled, Paucity of Language Orientation: Oriented to person Mood: Other (unable to elicit from patient, appears catatonic) Rate of Thoughts: Delayed Thought Organization: [place], Other (will not participate in interview) Associations: Illogical Abstract Reasoning: Impaired, concrete Thought Content: Other Perception/Psychotic: Other (does not appear to be responding to internal stimuli) Language: Naming Impaired Fund of Knowledge: Poor fund of knowledge Memory: Poor-immediate, Poor-recent, Poor-remote Suicidal Ideation: None Homicidal Ideation: None Insight: Impaired Judgement: Impaired Impulse Control: Poor - Laboratory Result Diagrams: 09/09/17 18:45 09/11/17 07:05 Laboratory Results - last 24 hr 09/10/17 09/11/17 16:44 07:05 Turbidity < 20 Sodium 144 Potassium 4.1 Chloride 107 Carbon Dioxide 28 Anion Gap 9 BUN 13.0 Creatinine 0.5 L GFR Calculation 122 BUN/Creatinine Ratio 26 Glucose 106 Calculated Osmolality 277 Calcium 8.7 Icterus Index < 2 Specimen Hemolysis < 15 Ur Collection Type Urine, void-cc/notcc Urine Color Yellow Urine Clarity Turbid Urine pH 6.5 Ur Specific [place] 1.015 Urine Protein Negative Urine Glucose (UA) Negative Urine Ketones Trace A Urine Occult Blood Negative Urine Nitrate Negative Urine Bilirubin Negative Urine Urobilinogen 1.0 Ur Leukocyte Esterase Trace A Urine RBC 0-1 Urine WBC 10-20 H Ur Squamous Epith Cells 5-10 Urine Bacteria 4+ H Ur Culture Indicated? Cult reflexed &setup Assessment and Plan (1) Major depressive disorder, recurrent episode, severe with catatonia Problem details: with psychotic features Current visit: Yes Status: Acute (2) Parkinson disease Current visit: Yes Status: Acute Have discontinued Lexapro and will start Effexor XR 75mg PO q AM this morning. Increased lorazepam to 3mg PO TID and will monitor response. VSS. Decreased Sinemet to 12.5mg PO BID in AM, afternoon. Will leave the HS dose at 50mg for the time being but may consider decreasing in the future. Have discontinued Baclofen, Requip completely. Hospital Course Summary Disclaimer: The visit summary below is not to be considered part of the above Progress Note. Hospital Course: Impression MDD with severe psychotic symptoms Parkinson's Disease GERD Allergies Urinary incontinence Constipation Plan Agree with admission to [facility] in the care of Dr. Burroughs for further psychiatric evaluation and treatment. Continue on Sinemet. 4. Chronic Parkinson's Carafate and Protonix for History of GERD and gastritis Miralax and Colace for chronic bowel motivation Will obtain a urine culture of urinalysis that was obtained in the emergency room to rule out infectious etiology. Given patient's reported urinary tract infection approximately 3 weeks ago. Encourage patient to report dyspnea, is improving a safe environment. The hospitalist services will continue follow patient medically manage existing comorbidities during her stay on the [facility] unit. At time of discharge, her medical care will return to primary care provider in [place], Dr. Brianne Llanes Psych 09/09/17: Discussed multiple treatment options, prognosis, diagnosis with sister/DPOA. ECT will not be available in [place] for several weeks. Will look into other options in nearby [facility]. For now, will make the following medication changes: - Decrease Baclofen to 5mg PO TID - Decrease Requip to 2mg PO TID - Discontinue tramadol - Decrease Remeron to 30mg PO q HS (plan to switch to another antidepressant) - Decrease Sinemet to 25mg in AM, 25mg in afternoon, 50mg at HS - Increase Ativan to 1mg PO TID - Discontinue PRN Haldol Will request dietary consult and encourage any PO intake. 09/09/17 Patient clinically appears dehydrated. Will assess labs including CBC, BMP, Mg, UA, and also CXR d/t altered mental status. Initial labs showed Na high-normal, K low-normal, stable renal function. WBC was normal, hgb was normal. Start NS @ 100 mL/hr, and I've asked staff to call me on my cell with any abnormal values to make adjustments to orders tonight. Prior UC from July was + E. coli, sensitive to 1st gen cephalosporins with an MALISSA of 16 -- she was treated with Keflex. Repeat UC from admit is showing preliminary growth. She's at risk for C. diff given recent abx use. If she develops diarrhea we will follow the stool collection protocol. TSH and vitamin B12 were unremarkable. Hgb A1c was 5.3%. Patient was seen simultaneously with Dr. Lucas, who formulated this plan. Also, sister wished to inform me that she is not interested in trialing the oral option for ECT at this time. She also does [place] plan [place]. 09/10/17 Labs reviewed; overall stable. UA and CXR still pending. DC IVF after the 2nd liter. Recommend to keep IV in place for now. Repeat BMP in am. UC growing 2 different Gram pos cocci. Cont to follow. Start nystatin for thrush. 09/10/17 Psych: Continue current care, monitoring response to increased dose of lorazepam. 09/11/17 Psych: Have discontinued Lexapro and will start Effexor XR 75mg PO q AM this morning. Increased lorazepam to 3mg PO TID and will monitor response. VSS. Decreased Sinemet to 12.5mg PO BID in AM, afternoon. Will leave the HS dose at 50mg for the time being but may consider decreasing in the future. Have discontinued Baclofen, Requip completely.
[2017-09-11] MEDS ORDERED: FOSFOMYCIN 3 GRAM PACKET PO ONE (13:30)
--- NOTE | 2017-09-11 13:34 | Progress Note ---
Progress Note: Urine culture from yesterday reviewed. Spoke with Dr Rick regarding positive VRE. We will treat with one time dose of Monurol 3gm PO. In reviewing past urine cultures . She continues to have consistent enterococcus presence and urine infections. There is no presence of acute sepsis process as she does remain afebrile with a normal white count. It is possible that VRE is chronic and: Eyes.
[2017-09-11] MEDS: MIRTAZAPINE 30 MG TABLET PO SCH (20:48)
[2017-09-11] MEDS: SUCRALFATE 1 GM TABLET PO SCH (20:48)
[2017-09-11] MEDS: SENNA + DOCUSATE TABLET PO SCH (20:48)
[2017-09-11] MEDS: DOCUSATE SODIUM 100 MG CAPSULE PO SCH (20:49)
[2017-09-12] MEDS: ALBUTEROL/IPRATROPIUM 2.5mg-0.5mg/3ml NEB AEROSOL SCH ×2 (07:50→20:42)
[2017-09-12] MEDS: LORazepam INTENSOL 1mg/0.5ml ORAL LIQUID PO SCH ×3 (09:19→20:33)
[2017-09-12] MEDS: REFRESH CLASSIC Eye Drops 0.4ml EACH EYE SCH ×2 (09:20→23:46)
--- NOTE | 2017-09-12 10:21 | Neuropsych Progress Note ---
[facility] Subjective Date: 09/13/17 - Sujective/Severity of Illness Medications: Albuterol/Ipratropium (Duoneb) 3 ml AEROSOL Q2H PRN PRN Reason: Shortness of air/wheezing Albuterol/Ipratropium (Duoneb) 3 ml AEROSOL BID [facility] Last Admin: 09/12/17 07:50 Dose: 3 ml Artificial Tears (Refresh Classic) 1 drop EACH EYE BID [facility] Last Admin: 09/12/17 09:20 Dose: 1 drop Calcium/Vitamin D (Caltrate + D) 1 tab PO DAILY [facility] Last Admin: 09/09/17 09:51 Dose: Not Given Carbidopa/Levodopa (Sinemet) 2 tab PO 2100 [facility] Last Admin: 09/11/17 20:49 Dose: 2 tab Carbidopa/Levodopa (Sinemet) 0.5 tab PO 0900,1500 [facility] Last Admin: 09/11/17 15:57 Dose: 0.5 tab Celecoxib (Celebrex) 200 mg PO DAILY [facility] Last Admin: 09/11/17 08:42 Dose: 200 mg Docusate Sodium (Colace) 100 mg PO HS [facility] Last Admin: 09/11/17 20:49 Dose: 100 mg Fexofenadine HCl (Allyn) 180 mg PO DAILY PRN PRN Reason: Allergy symptoms Lorazepam (Ativan Intensol) 3 mg PO TID [facility] Last Admin: 09/12/17 09:19 Dose: 3 mg Magnesium Hydroxide (Mom) 30 ml PO DAILY PRN PRN Reason: Constipation Last Admin: 09/10/17 08:54 Dose: 30 ml Mirtazapine (Remeron) 30 mg PO HS [facility] Last Admin: 09/11/17 20:48 Dose: 30 mg Multivitamins (Total B + C) 1 tab PO DAILY [facility] Last Admin: 09/09/17 09:51 Dose: Not Given Nystatin (Mycostatin) 1 applic TP BID PRN PRN Reason: Rash Nystatin (Mycostatin) 5 ml PO QID [facility] Last Admin: 09/11/17 20:47 Dose: 5 ml Pantoprazole Sodium (Protonix Tab) 40 mg PO ACB [facility] Last Admin: 09/11/17 08:42 Dose: 40 mg Polyethylene Glycol (Miralax) 17 gm PO DAILY [facility] Last Admin: 09/11/17 08:41 Dose: 17 gm Senna/Docusate Sodium (Senna Plus Tablet) 1 tab PO HS [facility] Last Admin: 09/11/17 20:48 Dose: 1 tab Sucralfate (Carafate) 1 gm PO HS [facility] Last Admin: 09/11/17 20:48 Dose: 1 gm Triamcinolone Acetonide (Kenalog) 1 applic TOP TID PRN PRN Reason: PRN orders Venlafaxine HCl (Effexor Xr) 75 mg PO WB [facility] Subjective: Patient seen and chart reviewed. Case discussed with treatment team. On interview, patient is lying in bed without family present. She is willing to talk to me for the first time today. She says that her mood is "not good" but denies feeling suicidal or wanting to . She denies having any pain. She denies having any hallucinations. She was not oriented to place but when I told her she was in the hospital, she asked which hospital. She said she would eat some vanilla ice cream and then subsequently did so with nursing assistance. I discussed progress and treatment plan with sister who feels she is making small improvements as well. They are still interested in ECT if we can find a feasible provider. Nursing staff report patient has appeared catatonic most of the day, eating only bites for meals and not maintaining adequate PO fluid intake. Hospitalist is monitoring in case patient needs further IV fluids. It has been difficult to get patient to take medications other than Ativan. Patient slept 9 hours overnight. VSS. Psychotropic PRNs required in the past 24 hours: none. UA culture pending. Start Time: 17:00 Stop Time: 17:20 Mental Status Exam Vitals: Last Vital Signs Temp 99.0 F 09/12/17 09:13 Pulse 90 09/12/17 09:13 Resp 18 09/12/17 09:19 BP 128/68 09/12/17 09:13 Pulse Ox 94 09/12/17 09:13 Height: 1.57 m Weight: 85.8 kg - Mental Status Exam Muscle Strength/Tone: Weak Dressing: Casual Grooming: Disheveled Attitude: Other (mostly appears catatonic) Motor Activity: Retardation Eye Contact: Poor Speech: Slowed Volume: Soft Rhythm: Mumbled, Paucity of Language Sensory: Other (mostly appears catatonic though more willing to interact with me today) Orientation: Disoriented to time, Disoriented to place, Disoriented to situation , Oriented to person Mood: Other (reports mood is "not good") Affect: Flat Rate of Thoughts: Delayed Thought Organization: [place] Associations: Illogical Abstract Reasoning: Impaired, concrete Thought Content: Helplessness Perception/Psychotic: Perception Normal (per patient report) Language: Naming Impaired Fund of Knowledge: Poor fund of knowledge Memory: Poor-immediate, Poor-recent, Poor-remote Suicidal Ideation: Denies (though is not maintaining adequate PO intake) Homicidal Ideation: Denies Insight: Impaired Judgement: Impaired Impulse Control: Poor - Laboratory Result Diagrams: 09/12/17 08:11 09/12/17 08:11 Laboratory Results - last 24 hr 09/12/17 09/12/17 08:11 08:11 WBC 4.9 RBC 4.51 Hgb 14.3 Hct 43.4 MCV 96.2 MCH 31.7 MCHC 32.9 RDW Std Deviation 46.0 Plt Count 175 MPV 9.7 Immature Gran % (Auto) 0.2 Neut % (Auto) 70.1 H Lymph % (Auto) 19.2 L Pickett % (Auto) 9.1 H Eos % (Auto) 1.0 Baso % (Auto) 0.4 Neut # (Auto) 3.4 Lymph # (Auto) 0.9 L Pickett # (Auto) 0.4 Eos # (Auto) 0.1 Baso # (Auto) 0.0 Abs Immat Gran (auto) 0.01 Turbidity < 20 Sodium 143 Potassium 4.0 Chloride 107 Carbon Dioxide 25 Anion Gap 11 BUN 14.0 Creatinine 0.5 L GFR Calculation 122 BUN/Creatinine Ratio 28 H Glucose 101 Calculated Osmolality 276 Calcium 8.7 Icterus Index < 2 Specimen Hemolysis < 15 Assessment and Plan (1) Major depressive disorder, recurrent episode, severe with catatonia Problem details: with psychotic features Current visit: Yes Status: Acute (2) Parkinson disease Problem details: Other medical conditions: MDD with severe psychotic symptoms GERD Allergies Urinary incontinence Constipation Current visit: Yes Status: Acute Have increased Ativan to 3mg PO TID and patient is responding more. If unable to take PO/SL, will give IM or IV. Continuing to look for ECT provider. Hospital Course Summary Disclaimer: The visit summary below is not to be considered part of the above Progress Note. Hospital Course: Impression MDD with severe psychotic symptoms Parkinson's Disease GERD Allergies Urinary incontinence Constipation Plan Agree with admission to [facility] in the care of Dr. Burroughs for further psychiatric evaluation and treatment. Continue on Sinemet. 4. Chronic Parkinson's Carafate and Protonix for History of GERD and gastritis Miralax and Colace for chronic bowel motivation Will obtain a urine culture of urinalysis that was obtained in the emergency room to rule out infectious etiology. Given patient's reported urinary tract infection approximately 3 weeks ago. Encourage patient to report dyspnea, is improving a safe environment. The hospitalist services will continue follow patient medically manage existing comorbidities during her stay on the [facility] unit. At time of discharge, her medical care will return to primary care provider in [place], Dr. Brianne Llanes Psych 09/09/17: Discussed multiple treatment options, prognosis, diagnosis with sister/DPOA. ECT will not be available in [place] for several weeks. Will look into other options in nearby [facility]. For now, will make the following medication changes: - Decrease Baclofen to 5mg PO TID - Decrease Requip to 2mg PO TID - Discontinue tramadol - Decrease Remeron to 30mg PO q HS (plan to switch to another antidepressant) - Decrease Sinemet to 25mg in AM, 25mg in afternoon, 50mg at HS - Increase Ativan to 1mg PO TID - Discontinue PRN Haldol Will request dietary consult and encourage any PO intake. 09/09/17 Patient clinically appears dehydrated. Will assess labs including CBC, BMP, Mg, UA, and also CXR d/t altered mental status. Initial labs showed Na high-normal, K low-normal, stable renal function. WBC was normal, hgb was normal. Start NS @ 100 mL/hr, and I've asked staff to call me on my cell with any abnormal values to make adjustments to orders tonight. Prior UC from July was + E. coli, sensitive to 1st gen cephalosporins with an MALISSA of 16 -- she was treated with Keflex. Repeat UC from [facility] admit is showing preliminary growth. She's at risk for C. diff given recent abx use. If she develops diarrhea we will follow the stool collection protocol. TSH and vitamin B12 were unremarkable. Hgb A1c was 5.3%. Patient was seen simultaneously with Dr. Lucas, who formulated this plan. Also, sister wished to inform me that she is not interested in trialing the oral option for ECT at this time. She also does [place] plan [place]. 09/10/17 Psych: Increased Ativan to 2mg PO TID. Have discontinued Lexapro and alternatively started Effexor XR 75mg PO daily though it is difficult to get patient to take medications. 09/11/17 Psych: Have increased Ativan to 3mg PO TID and patient is responding more. If unable to take PO/SL, will give IM or IV. Continuing to look for ECT provider.
[2017-09-12] MEDS: PANTOPRAZOLE 40 MG TABLET PO SCH (10:46)
[2017-09-12] MEDS: NYSTATIN 500,000 units/5 ml ORAL LIQUID PO SCH ×4 (10:47→23:46)
[2017-09-12] MEDS: CELECOXIB 200 MG CAPSULE PO SCH (10:49)
[2017-09-12] MEDS: POLYETHYL GLYCOL 3350 17gm PACKET PO SCH (10:49)
[2017-09-12] MEDS: Venlaflaxine XR 75 MG CAPSULE (24hr) PO SCH (10:49)
[2017-09-12] MEDS: DOCUSATE SODIUM 100 MG CAPSULE PO SCH (23:43)
[2017-09-12] MEDS: MIRTAZAPINE 30 MG TABLET PO SCH (23:43)
[2017-09-12] MEDS: SENNA + DOCUSATE TABLET PO SCH (23:46)
[2017-09-12] MEDS: SUCRALFATE 1 GM TABLET PO SCH (23:47)
[2017-09-13] MEDS: ALBUTEROL/IPRATROPIUM 2.5mg-0.5mg/3ml NEB AEROSOL SCH ×2 (07:52→20:50)
--- NOTE | 2017-09-13 08:44 | Progress Note ---
- Date 09/13/17 Subjective: Marva was in bed. She did not awaken, and per nurses she's been largely catatonic/unresponsive. She moans with cares on occasion; she is completely dependent on staff for all cares. Oral intake remains poor. Objective Vital signs: Temperature 98.2 F 09/13/17 08:19 Pulse Rate 99 09/13/17 08:19 Respiratory Rate 16 09/13/17 08:19 Blood Pressure 147/63 H 09/13/17 08:19 Pulse Oximetry 91 09/13/17 08:19 Height/Weight/BMI: Height 1.57 m Weight 85.8 kg Body Mass Index 34.6 - Constitutional Present: well nourished, well developed, obese - Routine HEENT Exam Head: Present: atraumatic - Routine Respiratory Exam Present: CTA bilaterally - Routine Cardiovascular Exam Present: RRR, S1, S2, murmur - Routine Abdominal Exam Present: soft, normoactive bowel sounds, non distended, non tender - Routine Extremities Exam Present: no edema - Routine Skin Exam Present: intact, dry, warm - Routine Neurological Exam Absent: alert, oriented X3 - Routine Psychiatric Exam Present: unable to assess Results - Labs CBC & Chem 7: 09/12/17 08:11 09/12/17 08:11 Microbiology Results: Microbiology 09/10/17 16:44 Urine, Voided (Cc/notcc) Urine Culture - Final Mixed Bacterial Jazmine 09/08/17 14:12 Urine, Voided (Cc/notcc) Urine Culture - Final Enterococcus faecium, VRE Assessment and Plan (1) Depression, major, recurrent, severe with psychosis Current visit: Yes Status: Acute Assessment and Plan: Impression Dehydration, altered mental status MDD with severe psychotic symptoms Parkinson's Disease GERD Allergies Urinary incontinence Constipation Plan Labs remain stable. Off IVF -- monitor for dehydration. UC from admit +VRE, treated with fosfomycin on 09/11/17 D/W [facility] staff --possible transfer to [place] for ECT. Resuscitation Status: Do Not Resuscitate - Physician Narrative Narrative: Date: 09/13/17 Time: 0840 Hospital Course Summary Disclaimer: The visit summary below is not to be considered part of the above Progress Note. Hospital Course: Impression MDD with severe psychotic symptoms Parkinson's Disease GERD Allergies Urinary incontinence Constipation Plan Agree with admission to [facility] in the care of Dr. Burroughs for further psychiatric evaluation and treatment. Continue on Sinemet. 4. Chronic Parkinson's Carafate and Protonix for History of GERD and gastritis Miralax and Colace for chronic bowel motivation Will obtain a urine culture of urinalysis that was obtained in the emergency room to rule out infectious etiology. Given patient's reported urinary tract infection approximately 3 weeks ago. Encourage patient to report dyspnea, is improving a safe environment. The hospitalist services will continue follow patient medically manage existing comorbidities during her stay on the [facility] unit. At time of discharge, her medical care will return to primary care provider in [place], Dr. Brianne Llanes Psych 09/09/17: Discussed multiple treatment options, prognosis, diagnosis with sister/DPOA. ECT will not be available in [place] for several weeks. Will look into other options in nearby [facility]. For now, will make the following medication changes: - Decrease Baclofen to 5mg PO TID - Decrease Requip to 2mg PO TID - Discontinue tramadol - Decrease Remeron to 30mg PO q HS (plan to switch to another antidepressant) - Decrease Sinemet to 25mg in AM, 25mg in afternoon, 50mg at HS - Increase Ativan to 1mg PO TID - Discontinue PRN Haldol Will request dietary consult and encourage any PO intake. 09/09/17 Patient clinically appears dehydrated. Will assess labs including CBC, BMP, Mg, UA, and also CXR d/t altered mental status. Initial labs showed Na high-normal, K low-normal, stable renal function. WBC was normal, hgb was normal. Start NS @ 100 mL/hr, and I've asked staff to call me on my cell with any abnormal values to make adjustments to orders tonight. Prior UC from July was + E. coli, sensitive to 1st gen cephalosporins with an MALISSA of 16 -- she was treated with Keflex. Repeat UC from [facility] admit is showing preliminary growth. She's at risk for C. diff given recent abx use. If she develops diarrhea we will follow the stool collection protocol. TSH and vitamin B12 were unremarkable. Hgb A1c was 5.3%. Patient was seen simultaneously with Dr. Lucas, who formulated this plan. Also, sister wished to inform me that she is not interested in trialing the oral option for ECT at this time. She also does not plan on [place]. 09/13/17 Labs remain stable. Off IVF -- monitor for dehydration. UC from admit +VRE, treated with fosfomycin on 09/11/17 D/W [facility] staff --possible transfer to [place] for ECT.
--- NOTE | 2017-09-13 09:51 | Neuropsych Progress Note ---
[facility] Subjective Date: 09/13/17 - Sujective/Severity of Illness Medications: Albuterol/Ipratropium (Duoneb) 3 ml AEROSOL Q2H PRN PRN Reason: Shortness of air/wheezing Albuterol/Ipratropium (Duoneb) 3 ml AEROSOL BID [facility] Last Admin: 09/13/17 07:52 Dose: 3 ml Artificial Tears (Refresh Classic) 1 drop EACH EYE BID [facility] Last Admin: 09/12/17 23:46 Dose: Not Given Calcium/Vitamin D (Caltrate + D) 1 tab PO DAILY [facility] Last Admin: 09/09/17 09:51 Dose: Not Given Carbidopa/Levodopa (Sinemet) 2 tab PO 2100 [facility] Last Admin: 09/12/17 23:43 Dose: Not Given Carbidopa/Levodopa (Sinemet) 0.5 tab PO 0900,1500 [facility] Last Admin: 09/12/17 16:44 Dose: Not Given Celecoxib (Celebrex) 200 mg PO DAILY [facility] Last Admin: 09/12/17 10:49 Dose: Not Given Docusate Sodium (Colace) 100 mg PO [facility] Last Admin: 09/12/17 23:43 Dose: Not Given Fexofenadine HCl (Allyn) 180 mg PO DAILY PRN PRN Reason: Allergy symptoms Lorazepam (Ativan Intensol) 3 mg PO TID [facility] Last Admin: 09/12/17 20:33 Dose: 3 mg Magnesium Hydroxide (Mom) 30 ml PO DAILY PRN PRN Reason: Constipation Last Admin: 09/10/17 08:54 Dose: 30 ml Mirtazapine (Remeron) 30 mg PO HS [facility] Last Admin: 09/12/17 23:43 Dose: Not Given Multivitamins (Total B + C) 1 tab PO DAILY [facility] Last Admin: 09/09/17 09:51 Dose: Not Given Nystatin (Mycostatin) 1 applic TP BID PRN PRN Reason: Rash Nystatin (Mycostatin) 5 ml PO QID [facility] Last Admin: 09/12/17 23:46 Dose: Not Given Pantoprazole Sodium (Protonix Tab) 40 mg PO ACB [facility] Last Admin: 09/12/17 10:46 Dose: Not Given Polyethylene Glycol (Miralax) 17 gm PO DAILY [facility] Last Admin: 09/12/17 10:49 Dose: Not Given Senna/Docusate Sodium (Senna Plus Tablet) 1 tab PO HS [facility] Last Admin: 09/12/17 23:46 Dose: Not Given Sucralfate (Carafate) 1 gm PO [facility] Last Admin: 09/12/17 23:47 Dose: Not Given Triamcinolone Acetonide (Kenalog) 1 applic TOP TID PRN PRN Reason: PRN orders Venlafaxine HCl (Effexor Xr) 75 mg PO [facility] Last Admin: 09/12/17 10:49 Dose: Not Given Subjective: Patient seen and chart reviewed. Case discussed with treatment team. Patient is sleeping at time of rounds. Nursing staff report patient has appeared catatonic most of the day, eating only bites for meals and not maintaining adequate PO fluid intake. Hospitalist is monitoring in case patient needs further IV fluids. It has been difficult to get patient to take medications other than Ativan. She did not wake/speak to the overnight nurse caring for her. Patient slept 10 hours overnight. VSS. Psychotropic PRNs required in the past 24 hours: none. UTI treated with fosfomycin on 09/11. Have found an ECT provider in the area who will possibly accept patient; SW/ CM working to arrange this if feasible. Start Time: 07:00 Stop Time: 07:20 Mental Status Exam Vitals: Last Vital Signs Temp 98.2 F 09/13/17 08:19 Pulse 99 09/13/17 08:19 Resp 16 09/13/17 08:19 BP 147/63 H 09/13/17 08:19 Pulse Ox 91 09/13/17 08:19 Height: 1.57 m Weight: 85.8 kg - Mental Status Exam Muscle Strength/Tone: Weak Dressing: Casual Grooming: Disheveled Attitude: Other (mostly appears catatonic) Motor Activity: Retardation Eye Contact: Poor Speech: Slowed Volume: Soft Rhythm: Mumbled, Paucity of Language Orientation: Disoriented to time, Disoriented to place, Disoriented to situation , Oriented to person Mood: Other (reports mood is "not good") Rate of Thoughts: Delayed Thought Organization: [place] Associations: Illogical Abstract Reasoning: Impaired, concrete Thought Content: Helplessness Perception/Psychotic: Perception Normal (per patient report) Language: Naming Impaired Fund of Knowledge: Poor fund of knowledge Memory: Poor-immediate, Poor-recent, Poor-remote Suicidal Ideation: Denies (though is not maintaining adequate PO intake) Homicidal Ideation: Denies Insight: Impaired Judgement: Impaired Impulse Control: Poor - Laboratory Result Diagrams: 09/12/17 08:11 09/12/17 08:11 Assessment and Plan (1) Parkinson disease Problem details: Other medical conditions: MDD with severe psychotic symptoms GERD Allergies Urinary incontinence Constipation Current visit: Yes Status: Acute (2) Major depressive disorder, recurrent episode, severe with catatonia Problem details: with psychotic features Current visit: Yes Status: Acute (3) Urinary tract infection Problem details: treated with fosfomycin 09/11/17 Current visit: Yes Status: Acute Continue current care; patient has shown some improvements. SW/CM working with possible ECT provider in area. Hospital Course Summary Disclaimer: The visit summary below is not to be considered part of the above Progress Note. Hospital Course: Impression MDD with severe psychotic symptoms Parkinson's Disease GERD Allergies Urinary incontinence Constipation Plan Agree with admission to [facility] in the care of Dr. Burroughs for further psychiatric evaluation and treatment. Continue on Sinemet. 4. Chronic Parkinson's Carafate and Protonix for History of GERD and gastritis Miralax and Colace for chronic bowel motivation Will obtain a urine culture of urinalysis that was obtained in the emergency room to rule out infectious etiology. Given patient's reported urinary tract infection approximately 3 weeks ago. Encourage patient to report dyspnea, is improving a safe environment. The hospitalist services will continue follow patient medically manage existing comorbidities during her stay on the [facility] unit. At time of discharge, her medical care will return to primary care provider in [place], Dr. Brianne Llanes Psych 09/09/17: Discussed multiple treatment options, prognosis, diagnosis with sister/DPOA. ECT will not be available in [place] for several weeks. Will look into other options in nearby [facility]. For now, will make the following medication changes: - Decrease Baclofen to 5mg PO TID - Decrease Requip to 2mg PO TID - Discontinue tramadol - Decrease Remeron to 30mg PO q HS (plan to switch to another antidepressant) - Decrease Sinemet to 25mg in AM, 25mg in afternoon, 50mg at HS - Increase Ativan to 1mg PO TID - Discontinue PRN Haldol Will request dietary consult and encourage any PO intake. 09/09/17 Patient clinically appears dehydrated. Will assess labs including CBC, BMP, Mg, UA, and also CXR d/t altered mental status. Initial labs showed Na high-normal, K low-normal, stable renal function. WBC was normal, hgb was normal. Start NS @ 100 mL/hr, and I've asked staff to call me on my cell with any abnormal values to make adjustments to orders tonight. Prior UC from July was + E. coli, sensitive to 1st gen cephalosporins with an MALISSA of 16 -- she was treated with Keflex. Repeat UC from admit is showing preliminary growth. She's at risk for C. diff given recent abx use. If she develops diarrhea we will follow the stool collection protocol. TSH and vitamin B12 were unremarkable. Hgb A1c was 5.3%. Patient was seen simultaneously with Dr. Lucas, who formulated this plan. Also, sister wished to inform me that she is not interested in trialing the oral option for ECT at this time. She also does [place] plan [place]. 09/10/17 Psych: Have discontinued Lexapro and will start Effexor XR 75mg PO q AM this morning. Increased lorazepam to 3mg PO TID and will monitor response. VSS. Decreased Sinemet to 12.5mg PO BID in AM, afternoon. Will leave the HS dose at 50mg for the time being but may consider decreasing in the future. Have discontinued Baclofen, Requip completely. 09/12/17 Psych: Have increased Ativan to 3mg PO TID and patient is responding more. If unable to take PO/SL, will give IM or IV. Continuing to look for ECT provider. 09/13/17 Psych: Continue current care; patient has shown some improvements. SW/ CM working with possible ECT provider in [place] area.
[2017-09-13] MEDS: LORazepam INTENSOL 1mg/0.5ml ORAL LIQUID PO SCH ×3 (09:54→20:21)
[2017-09-13] MEDS: NYSTATIN 500,000 units/5 ml ORAL LIQUID PO SCH ×4 (09:57→20:22)
[2017-09-13] MEDS: CELECOXIB 200 MG CAPSULE PO SCH (09:58)
[2017-09-13] MEDS: PANTOPRAZOLE 40 MG TABLET PO SCH (09:58)
[2017-09-13] MEDS: Venlaflaxine XR 75 MG CAPSULE (24hr) PO SCH (09:58)
[2017-09-13] MEDS: REFRESH CLASSIC Eye Drops 0.4ml EACH EYE SCH ×2 (09:59→20:23)
[2017-09-13] MEDS: POLYETHYL GLYCOL 3350 17gm PACKET PO SCH (09:59)
[2017-09-13] MEDS: MIRTAZAPINE 30 MG TABLET PO SCH (20:22)
[2017-09-13] MEDS: DOCUSATE SODIUM 100 MG CAPSULE PO SCH (20:22)
[2017-09-13] MEDS: SENNA + DOCUSATE TABLET PO SCH (20:23)
[2017-09-13] MEDS: SUCRALFATE 1 GM TABLET PO SCH (20:23)
[2017-09-14] MEDS: PANTOPRAZOLE 40 MG TABLET PO SCH (05:56)
[2017-09-14] MEDS: ALBUTEROL/IPRATROPIUM 2.5mg-0.5mg/3ml NEB AEROSOL SCH ×2 (09:01→20:45)
[2017-09-14] MEDS: LORazepam INTENSOL 1mg/0.5ml ORAL LIQUID PO SCH ×3 (10:13→21:07)
[2017-09-14] MEDS: NYSTATIN 500,000 units/5 ml ORAL LIQUID PO SCH ×4 (10:14→20:56)
[2017-09-14] MEDS: Venlaflaxine XR 75 MG CAPSULE (24hr) PO SCH (10:14)
[2017-09-14] MEDS: CELECOXIB 200 MG CAPSULE PO SCH (10:14)
[2017-09-14] MEDS: REFRESH CLASSIC Eye Drops 0.4ml EACH EYE SCH ×2 (10:15→21:06)
--- NOTE | 2017-09-14 11:19 | Neuropsych Progress Note ---
[facility] Subjective Date: 09/14/17 - Sujective/Severity of Illness Medications: Albuterol/Ipratropium (Duoneb) 3 ml AEROSOL Q2H PRN PRN Reason: Shortness of air/wheezing Albuterol/Ipratropium (Duoneb) 3 ml AEROSOL BID [facility] Last Admin: 09/14/17 09:01 Dose: 3 ml Artificial Tears (Refresh Classic) 1 drop EACH EYE BID [facility] Last Admin: 09/14/17 10:15 Dose: 1 drop Calcium/Vitamin D (Caltrate + D) 1 tab PO DAILY [facility] Last Admin: 09/09/17 09:51 Dose: Not Given Celecoxib (Celebrex) 200 mg PO DAILY [facility] Last Admin: 09/14/17 10:14 Dose: 200 mg Docusate Sodium (Colace) 100 mg PO HS [facility] Last Admin: 09/13/17 20:22 Dose: Not Given Fexofenadine HCl (Allyn) 180 mg PO DAILY PRN PRN Reason: Allergy symptoms Lorazepam (Ativan Intensol) 3 mg PO TID [facility] Last Admin: 09/14/17 10:13 Dose: 3 mg Magnesium Hydroxide (Mom) 30 ml PO DAILY PRN PRN Reason: Constipation Last Admin: 09/10/17 08:54 Dose: 30 ml Mirtazapine (Remeron) 30 mg PO [facility] Last Admin: 09/13/17 20:22 Dose: Not Given Multivitamins (Total B + C) 1 tab PO DAILY [facility] Last Admin: 09/09/17 09:51 Dose: Not Given Nystatin (Mycostatin) 1 applic TP BID PRN PRN Reason: Rash Nystatin (Mycostatin) 5 ml PO QID [facility] Last Admin: 09/14/17 10:14 Dose: 5 ml Pantoprazole Sodium (Protonix Tab) 40 mg PO ACB [facility] Last Admin: 09/14/17 05:56 Dose: Not Given Polyethylene Glycol (Miralax) 17 gm PO DAILY [facility] Senna/Docusate Sodium (Senna Plus Tablet) 1 tab PO HS [facility] Last Admin: 09/13/17 20:23 Dose: Not Given Sucralfate (Carafate) 1 gm PO HS [facility] Last Admin: 09/13/17 20:23 Dose: Not Given Triamcinolone Acetonide (Kenalog) 1 applic TOP TID PRN PRN Reason: PRN orders Venlafaxine HCl (Effexor Xr) 75 mg PO WB [facility] Last Admin: 09/14/17 10:14 Dose: 75 mg Subjective: Patient seen and chart reviewed.Nursing reports pt is doing about the same. Not responding and eating poorly. Sleeping well. On face to face the pt does not talk. She does open her eyes and respond to some commands. Tolerating meds. Start Time: 10:00 Stop Time: 10:15 Mental Status Exam Vitals: Last Vital Signs Temp 98.6 F 09/14/17 08:00 Pulse 91 09/14/17 08:00 Resp 16 09/14/17 10:13 BP 148/71 H 09/14/17 08:00 Pulse Ox 92 09/14/17 08:00 Height: 1.57 m Weight: 76.2 kg - Mental Status Exam Muscle Strength/Tone: Weak Dressing: Casual Grooming: Disheveled Attitude: Other (mostly appears catatonic) Motor Activity: Retardation Eye Contact: Poor Speech: Slowed Volume: Soft Rhythm: Mumbled, Paucity of Language Orientation: Disoriented to time, Disoriented to place, Disoriented to situation , Oriented to person Mood: Other (reports mood is "not good") Rate of Thoughts: Delayed Thought Organization: [place] Associations: Illogical Abstract Reasoning: Impaired, concrete Thought Content: Helplessness Perception/Psychotic: Perception Normal (per patient report) Language: Naming Impaired Fund of Knowledge: Poor fund of knowledge Memory: Poor-immediate, Poor-recent, Poor-remote Suicidal Ideation: Denies (though is not maintaining adequate PO intake) Homicidal Ideation: Denies Insight: Impaired Judgement: Impaired Impulse Control: Poor - Laboratory Result Diagrams: 09/12/17 08:11 09/12/17 08:11 Assessment and Plan (1) Major depressive disorder, recurrent episode, severe with catatonia Problem details: with psychotic features Current visit: Yes Status: Acute (2) Parkinson disease Problem details: Other medical conditions: MDD with severe psychotic symptoms GERD Allergies Urinary incontinence Constipation Current visit: Yes Status: Acute (3) Urinary tract infection Problem details: treated with fosfomycin 09/11/17 Current visit: Yes Status: Acute Hospital Course Summary Disclaimer: The visit summary below is not to be considered part of the above Progress Note. Hospital Course: Impression MDD with severe psychotic symptoms Parkinson's Disease GERD Allergies Urinary incontinence Constipation Plan Agree with admission to [facility] in the care of Dr. Burroughs for further psychiatric evaluation and treatment. Continue on Sinemet. 4. Chronic Parkinson's Carafate and Protonix for History of GERD and gastritis Miralax and Colace for chronic bowel motivation Will obtain a urine culture of urinalysis that was obtained in the emergency room to rule out infectious etiology. Given patient's reported urinary tract infection approximately 3 weeks ago. Encourage patient to report dyspnea, is improving a safe environment. The hospitalist services will continue follow patient medically manage existing comorbidities during her stay on the [facility] unit. At time of discharge, her medical care will return to primary care provider in [place], Dr. Brianne Llanes Psych 09/09/17: Discussed multiple treatment options, prognosis, diagnosis with sister/DPOA. ECT will not be available in [place] for several weeks. Will look into other options in nearby [facility]. For now, will make the following medication changes: - Decrease Baclofen to 5mg PO TID - Decrease Requip to 2mg PO TID - Discontinue tramadol - Decrease Remeron to 30mg PO q HS (plan to switch to another antidepressant) - Decrease Sinemet to 25mg in AM, 25mg in afternoon, 50mg at HS - Increase Ativan to 1mg PO TID - Discontinue PRN Haldol Will request dietary consult and encourage any PO intake. 09/09/17 Patient clinically appears dehydrated. Will assess labs including CBC, BMP, Mg, UA, and also CXR d/t altered mental status. Initial labs showed Na high-normal, K low-normal, stable renal function. WBC was normal, hgb was normal. Start NS @ 100 mL/hr, and I've asked staff to call me on my cell with any abnormal values to make adjustments to orders tonight. Prior UC from July was + E. coli, sensitive to 1st gen cephalosporins with an MALISSA of 16 -- she was treated with Keflex. Repeat UC from [facility] admit is showing preliminary growth. She's at risk for C. diff given recent abx use. If she develops diarrhea we will follow the stool collection protocol. TSH and vitamin B12 were unremarkable. Hgb A1c was 5.3%. Patient was seen simultaneously with Dr. Lucas, who formulated this plan. Also, sister wished to inform me that she is not interested in trialing the oral option for ECT at this time. She also [place] plan [place]. 09/10/17 Psych: Have discontinued Lexapro and will start Effexor XR 75mg PO q AM this morning. Increased lorazepam to 3mg PO TID and will monitor response. VSS. Decreased Sinemet to 12.5mg PO BID in AM, afternoon. Will leave the HS dose at 50mg for the time being but may consider decreasing in the future. Have discontinued Baclofen, Requip completely. 09/12/17 Psych: Have increased Ativan to 3mg PO TID and patient is responding more. If unable to take PO/SL, will give IM or IV. Continuing to look for ECT provider. 09/13/17 Psych: Continue current care; patient has shown some improvements. SW/ CANDICE working with possible ECT provider in [place] area. 09/14/2017 Psych note- Continue current care
--- NOTE | 2017-09-14 15:17 | Progress Note ---
- Date 09/14/17 Subjective: Patient was seen in her bed this morning. She did not open her eyes or respond to her name or to light touch or when being examined. Nursing staff reports that she has mostly been nonresponsive although they suspect she is awake/aware at times but keeps her eyes shut as the nurse was able to give part of a Mighty Shake through a syringe and the pt swallowed it w/o any problem. Pt is tentatively going to a different facility next week for ECT. That patient previously went into a catatonic-like state like this in the past after a in the family. 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 She was also noted to have a recent UTI. Ever since she has been here she has been incontinent of urine. She has not run fever or had elevated white counts. Objective Vital signs: Temperature 98.6 F 09/14/17 08:00 Pulse Rate 91 09/14/17 08:00 Respiratory Rate 16 09/14/17 10:13 Blood Pressure 148/71 H 09/14/17 08:00 Pulse Oximetry 94 09/14/17 09:05 Height/Weight/BMI: Height 1.57 m Weight 76.2 kg Body Mass Index 34.6 - Constitutional Present: no acute distress, well nourished, well developed - Routine HEENT Exam Head: Present: normocephalic, atraumatic - Routine Respiratory Exam Present: CTA bilaterally. Absent: wheezes - Routine Cardiovascular Exam Present: RRR, no murmur - Routine Abdominal Exam Present: soft, non distended, non tender - Routine Extremities Exam Present: no edema, normal capillary refill - Routine Skin Exam Present: dry, warm - Routine Neurological Exam Absent: alert Patient sleeps throughout exam. She does not respond to verbal or touch stimuli. - Routine Lymphatic Exam Lymphatic: Absent: adenopathy - Routine Psychiatric Exam Present: unable to assess Results - Labs CBC & Chem 7: 09/12/17 08:11 09/12/17 08:11 Microbiology Results: Microbiology 09/10/17 16:44 Urine, Voided (Cc/notcc) Urine Culture - Final Mixed Bacterial Bay 09/08/17 14:12 Urine, Voided (Cc/notcc) Urine Culture - Final Enterococcus faecium, VRE Assessment and Plan Assessment and Plan: Impression Dehydration, altered mental status MDD with severe psychotic symptoms Parkinson's Disease GERD Allergies Urinary incontinence Constipation Plan Labs remain stable. Will repeat BMP in am given she has not been taking much po. UC from admit +VRE, treated with fosfomycin on 09/11/17 but this does not cover this particular infection. Reviewed with Dr. Maria. Given that the only option for treatment is Zyvox and this is an MAOI and is contraindicated with her venlafaxine and mirtazapine, will not proceed with treatment. She has a normal white count and no fever. She had a repeat urine culture performed 2 days following the results of the positive VRE which only showed mixed bacterial bay. No further intervention is indicated at this time. D/W [facility] staff --possible transfer early next week to [place] for ECT. Vitals are stable. Nurse's notes and psychiatric notes reviewed. - Physician Narrative Physician: Angelia Maria Narrative: Date: 09/14/17 Time: 1510 I have independently interviewed and examined patient. Patient chart reviewed. Case discussed with my [employer]. Care plan developed with my supervision, agree with above. Patient had positive VRE, sensitive to Zyvox, noted on urine culture 2017. Repeat urine culture 09/10/2018 shows mixed bay. Recent afebrile, no leukocytosis or evidence of infection. Clinically, unlikely patient having underlying UTI with sepsis. Patient also having history of incontinence. Likely colonizer noted on earlier urine culture. Antibiotics not initiated. Hospital Course Summary Disclaimer: The visit summary below is not to be considered part of the above Progress Note. Hospital Course: Impression MDD with severe psychotic symptoms Parkinson's Disease GERD Allergies Urinary incontinence Constipation Plan [facility] of Dr. Burroughs for further psychiatric evaluation and treatment. Continue on Sinemet. 4. Chronic Parkinson's Carafate and Protonix for History of GERD and gastritis Miralax and Colace for chronic bowel motivation Will obtain a urine culture of urinalysis that was obtained in the emergency room to rule out infectious etiology. Given patient's reported urinary tract infection approximately 3 weeks ago. Encourage patient to report dyspnea, is improving a safe environment. The hospitalist services will continue follow patient medically manage existing comorbidities [facility]. At time of discharge, her medical care will return to primary care provider in [place], Dr. Brianne Llanes Psych 09/09/17: Discussed multiple treatment options, prognosis, diagnosis with sister/DPOA. ECT will not be available in [place] for several weeks. Will look into other options in nearby [facility]. For now, will make the following medication changes: - Decrease Baclofen to 5mg PO TID - Decrease Requip to 2mg PO TID - Discontinue tramadol - Decrease Remeron to 30mg PO q HS (plan to switch to another antidepressant) - Decrease Sinemet to 25mg in AM, 25mg in afternoon, 50mg at HS - Increase Ativan to 1mg PO TID - Discontinue PRN Haldol Will request dietary consult and encourage any PO intake. 09/09/17 Patient clinically appears dehydrated. Will assess labs including CBC, BMP, Mg, UA, and also CXR d/t altered mental status. Initial labs showed Na high-normal, K low-normal, stable renal function. WBC was normal, hgb was normal. Start NS @ 100 mL/hr, and I've asked staff to call me on my cell with any abnormal values to make adjustments to orders tonight. Prior UC from July was + E. coli, sensitive to 1st gen cephalosporins with an MALISSA of 16 -- she was treated with Keflex. Repeat UC from admit is showing preliminary growth. She's at risk for C. diff given recent abx use. If she develops diarrhea we will follow the stool collection protocol. TSH and vitamin B12 were unremarkable. Hgb A1c was 5.3%. Patient was seen simultaneously with Dr. Lucas, who formulated this plan. Also, sister wished to inform me that she is not interested in trialing the oral option for ECT at this time. She also does [place] plan [place]. 09/10/17 Psych: Have discontinued Lexapro and will start Effexor XR 75mg PO q AM this morning. Increased lorazepam to 3mg PO TID and will monitor response. VSS. Decreased Sinemet to 12.5mg PO BID in AM, afternoon. Will leave the HS dose at 50mg for the time being but may consider decreasing in the future. Have discontinued Baclofen, Requip completely. 09/12/17 Psych: Have increased Ativan to 3mg PO TID and patient is responding more. If unable to take PO/SL, will give IM or IV. Continuing to look for ECT provider. 09/13/17 Psych: Continue current care; patient has shown some improvements. SW/ CM working with possible ECT provider in [place] area. 09/14/2017 Psych note- Continue current care 09/14/17 Labs remain stable. Will repeat BMP in am given she has not been taking much po. UC from admit +VRE, treated with fosfomycin on 09/11/17 but this does not cover this particular infection. Reviewed with Dr. Maria. Given that the only option for treatment is Zyvox and this is an MAOI and is contraindicated with her venlafaxine and mirtazapine, will not proceed with treatment. She has a normal white count and no fever. She had a repeat urine culture performed 2 days following the results of the positive VRE which only showed mixed bacterial bay. No further intervention is indicated at this time. D/W [facility] staff --possible transfer early next week to [place] for ECT. Vitals are stable. Nurse's notes and psychiatric notes reviewed.
[2017-09-14] MEDS: DOCUSATE SODIUM 100 MG CAPSULE PO SCH (20:55)
[2017-09-14] MEDS: SUCRALFATE 1 GM TABLET PO SCH (20:57)
[2017-09-14] MEDS: SENNA + DOCUSATE TABLET PO SCH (20:57)
[2017-09-14] MEDS: MIRTAZAPINE 30 MG TABLET PO SCH (20:57)
[2017-09-15] MEDS: PANTOPRAZOLE 40 MG TABLET PO SCH (05:41)
[2017-09-15] MEDS: ALBUTEROL/IPRATROPIUM 2.5mg-0.5mg/3ml NEB AEROSOL SCH ×2 (07:30→20:22)
--- NOTE | 2017-09-15 10:43 | Neuropsych Progress Note ---
[facility] Subjective Date: 09/15/17 - Sujective/Severity of Illness Medications: Albuterol/Ipratropium (Duoneb) 3 ml AEROSOL Q2H PRN PRN Reason: Shortness of air/wheezing Albuterol/Ipratropium (Duoneb) 3 ml AEROSOL BID [facility] Last Admin: 09/15/17 07:30 Dose: 3 ml Artificial Tears (Refresh Classic) 1 drop EACH EYE BID [facility] Calcium/Vitamin D (Caltrate + D) 1 tab PO DAILY [facility] Last Admin: 09/09/17 09:51 Dose: Not Given Celecoxib (Celebrex) 200 mg PO DAILY [facility] Last Admin: 09/14/17 10:14 Dose: 200 mg Docusate Sodium (Colace) 100 mg PO HS [facility] Last Admin: 09/14/17 20:55 Dose: 100 mg Fexofenadine HCl (Allyn) 180 mg PO DAILY PRN PRN Reason: Allergy symptoms Lorazepam (Ativan Intensol) 3 mg PO TID [facility] Last Admin: 09/14/17 21:07 Dose: 3 mg Magnesium Hydroxide (Mom) 30 ml PO DAILY PRN PRN Reason: Constipation Last Admin: 09/10/17 08:54 Dose: 30 ml Mirtazapine (Remeron) 30 mg PO HS [facility] Last Admin: 09/14/17 20:57 Dose: Not Given Multivitamins (Total B + C) 1 tab PO DAILY [facility] Last Admin: 09/09/17 09:51 Dose: Not Given Nystatin (Mycostatin) 1 applic TP BID PRN PRN Reason: Rash Nystatin (Mycostatin) 5 ml PO QID [facility] Last Admin: 09/14/17 20:56 Dose: 5 ml Pantoprazole Sodium (Protonix Tab) 40 mg PO ACB [facility] Last Admin: 09/15/17 05:41 Dose: Not Given Polyethylene Glycol (Miralax) 17 gm PO DAILY [facility] Senna/Docusate Sodium (Senna Plus Tablet) 1 tab PO HS [facility] Last Admin: 09/14/17 20:57 Dose: Not Given Sucralfate (Carafate) 1 gm PO HS [facility] Last Admin: 09/14/17 20:57 Dose: Not Given Triamcinolone Acetonide (Kenalog) 1 applic TOP TID PRN PRN Reason: PRN orders Venlafaxine HCl (Effexor Xr) 75 mg PO WB [facility] Last Admin: 09/14/17 10:14 Dose: 75 mg Subjective: Patient seen and chart reviewed.Nursing reports pt is doing about the same. She continues to not speak much and has a poor appetite. On face to face the pt is resting in bed. She does not reply to questions. She is taking meds. Start Time: 10:00 Stop Time: 10:15 Mental Status Exam Vitals: Last Vital Signs Temp 97.2 F 09/14/17 20:25 Pulse 78 09/14/17 20:25 Resp 16 09/15/17 07:30 BP 144/85 H 09/14/17 20:25 Pulse Ox 93 09/15/17 07:30 Height: 1.57 m Weight: 75.6 kg - Mental Status Exam Muscle Strength/Tone: Weak Dressing: Casual Grooming: Disheveled Attitude: Other (mostly appears catatonic) Motor Activity: Retardation Eye Contact: Poor Speech: Slowed Volume: Soft Rhythm: Mumbled, Paucity of Language Orientation: Disoriented to time, Disoriented to place, Disoriented to situation , Oriented to person Mood: Other (reports mood is "not good") Rate of Thoughts: Delayed Thought Organization: [place] Associations: Illogical Abstract Reasoning: Impaired, concrete Thought Content: Helplessness Perception/Psychotic: Perception Normal (per patient report) Language: Naming Impaired Fund of Knowledge: Poor fund of knowledge Memory: Poor-immediate, Poor-recent, Poor-remote Suicidal Ideation: Denies (though is not maintaining adequate PO intake) Homicidal Ideation: Denies Insight: Impaired Judgement: Impaired Impulse Control: Poor - Laboratory Result Diagrams: 09/12/17 08:11 09/15/17 05:10 Laboratory Results - last 24 hr 09/15/17 05:10 Turbidity < 20 Sodium 145 Potassium 4.3 Chloride 107 Carbon Dioxide 26 Anion Gap 12 BUN 22.0 H D Creatinine 0.4 L GFR Calculation 157 BUN/Creatinine Ratio 55 H Glucose 119 H Calculated Osmolality 283 H Calcium 9.2 Icterus Index < 2 Specimen Hemolysis < 15 Assessment and Plan (1) Major depressive disorder, recurrent episode, severe with catatonia Problem details: with psychotic features Current visit: Yes Status: Acute (2) Parkinson disease Problem details: Other medical conditions: MDD with severe psychotic symptoms GERD Allergies Urinary incontinence Constipation Current visit: Yes Status: Acute (3) Urinary tract infection Problem details: treated with fosfomycin 09/11/17 Current visit: Yes Status: Acute Hospital Course Summary Disclaimer: The visit summary below is not to be considered part of the above Progress Note. Hospital Course: Impression MDD with severe psychotic symptoms Parkinson's Disease GERD Allergies Urinary incontinence Constipation Plan Agree with admission to [facility] in the care of Dr. Burroughs for further psychiatric evaluation and treatment. Continue on Sinemet. 4. Chronic Parkinson's Carafate and Protonix for History of GERD and gastritis Miralax and Colace for chronic bowel motivation Will obtain a urine culture of urinalysis that was obtained in the emergency room to rule out infectious etiology. Given patient's reported urinary tract infection approximately 3 weeks ago. Encourage patient to report dyspnea, is improving a safe environment. The hospitalist services will continue follow patient medically manage existing comorbidities during her stay on the [facility] unit. At time of discharge, her medical care will return to primary care provider in [place], Dr. Brianne Llanes Psych 09/09/17: Discussed multiple treatment options, prognosis, diagnosis with sister/DPOA. ECT will not be available in [place] for several weeks. Will look into other options in nearby [facility]. For now, will make the following medication changes: - Decrease Baclofen to 5mg PO TID - Decrease Requip to 2mg PO TID - Discontinue tramadol - Decrease Remeron to 30mg PO q HS (plan to switch to another antidepressant) - Decrease Sinemet to 25mg in AM, 25mg in afternoon, 50mg at HS - Increase Ativan to 1mg PO TID - Discontinue PRN Haldol Will request dietary consult and encourage any PO intake. 09/09/17 Patient clinically appears dehydrated. Will assess labs including CBC, BMP, Mg, UA, and also CXR d/t altered mental status. Initial labs showed Na high-normal, K low-normal, stable renal function. WBC was normal, hgb was normal. Start NS @ 100 mL/hr, and I've asked staff to call me on my cell with any abnormal values to make adjustments to orders tonight. Prior UC from July was + E. coli, sensitive to 1st gen cephalosporins with an MALISSA of 16 -- she was treated with Keflex. Repeat UC from [facility] admit is showing preliminary growth. She's at risk for C. diff given recent abx use. If she develops diarrhea we will follow the stool collection protocol. TSH and vitamin B12 were unremarkable. Hgb A1c was 5.3%. Patient was seen simultaneously with Dr. Lucas, who formulated this plan. Also, sister wished to inform me that she is not interested in trialing the oral option for ECT at this time. She also [place] plan [place] 09/10/17 Psych: Have discontinued Lexapro and will start Effexor XR 75mg PO q AM this morning. Increased lorazepam to 3mg PO TID and will monitor response. VSS. Decreased Sinemet to 12.5mg PO BID in AM, afternoon. Will leave the HS dose at 50mg for the time being but may consider decreasing in the future. Have discontinued Baclofen, Requip completely. 09/12/17 Psych: Have increased Ativan to 3mg PO TID and patient is responding more. If unable to take PO/SL, will give IM or IV. Continuing to look for ECT provider. 09/13/17 Psych: Continue current care; patient has shown some improvements. SW/ CM working with possible ECT provider in [place] area. 09/14/2017 Psych note- Continue current care 09/14/17 Labs remain stable. Will repeat BMP in am given she has not been taking much po. UC from admit +VRE, treated with fosfomycin on 09/11/17 but this does not cover this particular infection. Reviewed with Dr. Maria. Given that the only option for treatment is Zyvox and this is an MAOI and is contraindicated with her venlafaxine and mirtazapine, will not proceed with treatment. She has a normal white count and no fever. She had a repeat urine culture performed 2 days following the results of the positive VRE which only showed mixed bacterial bay. No further intervention is indicated at this time. D/W [facility] staff --possible transfer early next week to [place] for ECT. Vitals are stable. Nurse's notes and psychiatric notes reviewed. 09/15/17 Psych note- Continue current care
[2017-09-15] MEDS: LORazepam INTENSOL 1mg/0.5ml ORAL LIQUID PO SCH ×4 (11:41→23:19)
[2017-09-15] MEDS: NYSTATIN 500,000 units/5 ml ORAL LIQUID PO SCH ×4 (11:42→23:20)
[2017-09-15] MEDS: Venlaflaxine XR 75 MG CAPSULE (24hr) PO SCH (11:42)
[2017-09-15] MEDS: CELECOXIB 200 MG CAPSULE PO SCH (11:42)
[2017-09-15] MEDS: POLYETHYL GLYCOL 3350 17gm PACKET PO SCH (11:43)
[2017-09-15] MEDS: REFRESH CLASSIC Eye Drops 0.4ml EACH EYE SCH ×2 (11:43→23:20)
[2017-09-15] MEDS: DOCUSATE SODIUM 100 MG CAPSULE PO SCH (23:19)
[2017-09-15] MEDS: MIRTAZAPINE 30 MG TABLET PO SCH (23:19)
[2017-09-15] MEDS: SENNA + DOCUSATE TABLET PO SCH (23:20)
[2017-09-15] MEDS: SUCRALFATE 1 GM TABLET PO SCH (23:20)
[2017-09-16] MEDS: ALBUTEROL/IPRATROPIUM 2.5mg-0.5mg/3ml NEB AEROSOL SCH ×2 (06:41→19:00)
[2017-09-16] MEDS: REFRESH CLASSIC Eye Drops 0.4ml EACH EYE SCH ×2 (10:04→21:03)
[2017-09-16] MEDS: NYSTATIN 500,000 units/5 ml ORAL LIQUID PO SCH ×4 (10:05→21:03)
[2017-09-16] MEDS: LORazepam INTENSOL 1mg/0.5ml ORAL LIQUID PO SCH ×3 (10:08→21:07)
[2017-09-16] MEDS: Venlaflaxine XR 75 MG CAPSULE (24hr) PO SCH (10:18)
[2017-09-16] MEDS: CELECOXIB 200 MG CAPSULE PO SCH (10:18)
[2017-09-16] MEDS: POLYETHYL GLYCOL 3350 17gm PACKET PO SCH (10:19)
[2017-09-16] MEDS: PANTOPRAZOLE 40 MG TABLET PO SCH (10:21)
--- NOTE | 2017-09-16 11:15 | Progress Note ---
- Date 09/16/17 Subjective: Marva was in the dayroom. She was resting in her wheelchair, eyes closed. She did not respond to voice or tactile stimulation. RN reports that she's been mostly catatonic. She was able to give her most of a Mighty Shake today via syringe. Occasionally she mumbles. Objective Vital signs: Temperature 97.4 F 09/16/17 08:00 Pulse Rate 89 09/16/17 08:00 Respiratory Rate 16 09/16/17 08:00 Blood Pressure 149/69 H 09/16/17 08:00 Pulse Oximetry 91 09/16/17 08:00 Height/Weight/BMI: Height 1.57 m Weight 75.6 kg Body Mass Index 34.6 - Constitutional Present: no acute distress, obese - Routine HEENT Exam Head: Present: atraumatic - Routine Respiratory Exam Present: CTA bilaterally - Routine Cardiovascular Exam Present: RRR, S1, S2 - Routine Abdominal Exam Present: soft, normoactive bowel sounds, non distended, non tender - Routine Extremities Exam Present: no edema - Routine Skin Exam Present: intact, dry, warm - Routine Neurological Exam Absent: alert, oriented X3 - Routine Psychiatric Exam Present: unable to assess Results - Labs CBC & Chem 7: 09/12/17 08:11 09/15/17 05:10 Microbiology Results: Microbiology 09/10/17 16:44 Urine, Voided (Cc/notcc) Urine Culture - Final Mixed Bacterial Bay 09/08/17 14:12 Urine, Voided (Cc/notcc) Urine Culture - Final Enterococcus faecium, VRE Assessment and Plan (1) Depression, major, recurrent, severe with psychosis Current visit: Yes Status: Acute Assessment and Plan: Impression Dehydration, altered mental status MDD with severe psychotic symptoms Parkinson's Disease GERD Allergies Urinary incontinence Constipation Plan Repeat UC showing mixed bacterial bay. Prior UC showing VRE was not treated d/ t interaction with psych medications, coupled with being afebrile and having a normal WBC. Continue treatment per psych. Encourage PO food/fluid as able. BMP done yesterday was overall unremarkable -- slight increase in BUN. Poss dc soon to [place] or [place] for ECT. - Physician Narrative Narrative: Date: 09/16/17 Time: 1112 Hospital Course Summary Disclaimer: The visit summary below is not to be considered part of the above Progress Note. Hospital Course: Impression MDD with severe psychotic symptoms Parkinson's Disease GERD Allergies Urinary incontinence Constipation Plan Agree with admission to [facility] in the care of Dr. Burroughs for further psychiatric evaluation and treatment. Continue on Sinemet. 4. Chronic Parkinson's Carafate and Protonix for History of GERD and gastritis Miralax and Colace for chronic bowel motivation Will obtain a urine culture of urinalysis that was obtained in the emergency room to rule out infectious etiology. Given patient's reported urinary tract infection approximately 3 weeks ago. Encourage patient to report dyspnea, is improving a safe environment. The hospitalist services will continue follow patient medically manage existing comorbidities during her stay on the [facility] unit. At time of discharge, her medical care will return to primary care provider in [place], Dr. Brianne Llanes Psych 09/09/17: Discussed multiple treatment options, prognosis, diagnosis with sister/DPOA. ECT will not be available in [place] for several weeks. Will look into other options in [facility]. For now, will make the following medication changes: - Decrease Baclofen to 5mg PO TID - Decrease Requip to 2mg PO TID - Discontinue tramadol - Decrease Remeron to 30mg PO q HS (plan to switch to another antidepressant) - Decrease Sinemet to 25mg in AM, 25mg in afternoon, 50mg at HS - Increase Ativan to 1mg PO TID - Discontinue PRN Haldol Will request dietary consult and encourage any PO intake. 09/09/17 Patient clinically appears dehydrated. Will assess labs including CBC, BMP, Mg, UA, and also CXR d/t altered mental status. Initial labs showed Na high-normal, K low-normal, stable renal function. WBC was normal, hgb was normal. Start NS @ 100 mL/hr, and I've asked staff to call me on my cell with any abnormal values to make adjustments to orders tonight. Prior UC from July was + E. coli, sensitive to 1st gen cephalosporins with an MALISSA of 16 -- she was treated with Keflex. Repeat UC from [facility] admit is showing preliminary growth. She's at risk for C. diff given recent abx use. If she develops diarrhea we will follow the stool collection protocol. TSH and vitamin B12 were unremarkable. Hgb A1c was 5.3%. Patient was seen simultaneously with Dr. Lucas, who formulated this plan. Also, sister wished to inform me that she is not interested in trialing the oral option for ECT at this time. She also does not plan [place] Marva [place]. 09/10/17 Psych: Have discontinued Lexapro and will start Effexor XR 75mg PO q AM this morning. Increased lorazepam to 3mg PO TID and will monitor response. VSS. Decreased Sinemet to 12.5mg PO BID in AM, afternoon. Will leave the HS dose at 50mg for the time being but may consider decreasing in the future. Have discontinued Baclofen, Requip completely. 09/12/17 Psych: Have increased Ativan to 3mg PO TID and patient is responding more. If unable to take PO/SL, will give IM or IV. Continuing to look for ECT provider. 09/13/17 Psych: Continue current care; patient has shown some improvements. SW/ CM working with possible ECT provider in [place] area. 09/14/2017 Psych note- Continue current care 09/14/17 Labs remain stable. Will repeat BMP in am given she has not been taking much po. UC from admit +VRE, treated with fosfomycin on 09/11/17 but this does not cover this particular infection. Reviewed with Dr. Maria. Given that the only option for treatment is Zyvox and this is an MAOI and is contraindicated with her venlafaxine and mirtazapine, will not proceed with treatment. She has a normal white count and no fever. She had a repeat urine culture performed 2 days following the results of the positive VRE which only showed mixed bacterial bay. No further intervention is indicated at this time. D/W [facility] staff --possible transfer early next week to [place] for ECT. Vitals are stable. Nurse's notes and psychiatric notes reviewed. 09/15/17 Psych note- Continue current care 09/16/17 Repeat UC showing mixed bacterial bay. Prior UC showing VRE was not treated d/ t interaction with psych medications, coupled with being afebrile and having a normal WBC. Continue treatment per psych. Encourage PO food/fluid as able. BMP done yesterday was overall unremarkable -- slight increase in BUN. Poss dc soon to [place] or [place] for ECT.
--- NOTE | 2017-09-16 12:38 | Neuropsych Progress Note ---
[facility] Subjective Date: 09/16/17 - Sujective/Severity of Illness Medications: Albuterol/Ipratropium (Duoneb) 3 ml AEROSOL Q2H PRN PRN Reason: Shortness of air/wheezing Albuterol/Ipratropium (Duoneb) 3 ml AEROSOL BID [facility] Last Admin: 09/16/17 06:41 Dose: 3 ml Artificial Tears (Refresh Classic) 1 drop EACH EYE BID [facility] Last Admin: 09/16/17 10:04 Dose: 1 drop Calcium/Vitamin D (Caltrate + D) 1 tab PO DAILY [facility] Last Admin: 09/09/17 09:51 Dose: Not Given Celecoxib (Celebrex) 200 mg PO DAILY [facility] Last Admin: 09/16/17 10:18 Dose: 200 mg Docusate Sodium (Colace) 100 mg PO HS [facility] Last Admin: 09/15/17 23:19 Dose: Not Given Fexofenadine HCl (Allyn) 180 mg PO DAILY PRN PRN Reason: Allergy symptoms Lorazepam (Ativan Intensol) 3 mg PO TID [facility] Last Admin: 09/16/17 10:08 Dose: 3 mg Magnesium Hydroxide (Mom) 30 ml PO DAILY PRN PRN Reason: Constipation Last Admin: 09/10/17 08:54 Dose: 30 ml Mirtazapine (Remeron) 30 mg PO HS [facility] Last Admin: 09/15/17 23:19 Dose: Not Given Multivitamins (Total B + C) 1 tab PO DAILY [facility] Last Admin: 09/09/17 09:51 Dose: Not Given Nystatin (Mycostatin) 1 applic TP BID PRN PRN Reason: Rash Nystatin (Mycostatin) 5 ml PO QID [facility] Last Admin: 09/16/17 10:05 Dose: 5 ml Pantoprazole Sodium (Protonix Tab) 40 mg PO ACB [facility] Last Admin: 09/16/17 10:21 Dose: 40 mg Polyethylene Glycol (Miralax) 17 gm PO DAILY [facility] Last Admin: 09/16/17 10:19 Dose: 17 gm Senna/Docusate Sodium (Senna Plus Tablet) 1 tab PO HS [facility] Last Admin: 09/15/17 23:20 Dose: Not Given Sucralfate (Carafate) 1 gm PO HS [facility] Last Admin: 09/15/17 23:20 Dose: Not Given Triamcinolone Acetonide (Kenalog) 1 applic TOP TID PRN PRN Reason: PRN orders Venlafaxine HCl (Effexor Xr) 75 mg PO WB [facility] Last Admin: 09/16/17 10:18 Dose: 75 mg Subjective: Patient seen and chart reviewed.Nursing reports pt is doing about the same. She is sleeping well and will eat a little if fed. Family states she will say some words and will wake up at times. On face to face the pt is resting quietly. She does not respond to questions. Tolerating meds Start Time: 11:00 Stop Time: 11:15 Mental Status Exam Vitals: Last Vital Signs Temp 97.4 F 09/16/17 08:00 Pulse 89 09/16/17 08:00 Resp 16 09/16/17 08:00 BP 149/69 H 09/16/17 08:00 Pulse Ox 91 09/16/17 08:00 Height: 1.57 m Weight: 75.6 kg - Mental Status Exam Muscle Strength/Tone: Weak Dressing: Casual Grooming: Disheveled Attitude: Other (mostly appears catatonic) Motor Activity: Retardation Eye Contact: Poor Speech: Slowed Volume: Soft Rhythm: Mumbled, Paucity of Language Orientation: Disoriented to time, Disoriented to place, Disoriented to situation , Oriented to person Mood: Other (reports mood is "not good") Rate of Thoughts: Delayed Thought Organization: [place] Associations: Illogical Abstract Reasoning: Impaired, concrete Thought Content: Helplessness Perception/Psychotic: Perception Normal (per patient report) Language: Naming Impaired Fund of Knowledge: Poor fund of knowledge Memory: Poor-immediate, Poor-recent, Poor-remote Suicidal Ideation: Denies (though is not maintaining adequate PO intake) Homicidal Ideation: Denies Insight: Impaired Judgement: Impaired Impulse Control: Poor - Laboratory Result Diagrams: 09/12/17 08:11 09/15/17 05:10 Assessment and Plan (1) Major depressive disorder, recurrent episode, severe with catatonia Problem details: with psychotic features Current visit: Yes Status: Acute (2) Parkinson disease Problem details: Other medical conditions: MDD with severe psychotic symptoms GERD Allergies Urinary incontinence Constipation Current visit: Yes Status: Acute (3) Urinary tract infection Problem details: treated with fosfomycin 09/11/17 Current visit: Yes Status: Acute Hospital Course Summary Disclaimer: The visit summary below is not to be considered part of the above Progress Note. Hospital Course: Impression MDD with severe psychotic symptoms Parkinson's Disease GERD Allergies Urinary incontinence Constipation Plan Agree with admission to [facility] in the care of Dr. Burroughs for further psychiatric evaluation and treatment. Continue on Sinemet. 4. Chronic Parkinson's Carafate and Protonix for History of GERD and gastritis Miralax and Colace for chronic bowel motivation Will obtain a urine culture of urinalysis that was obtained in the emergency room to rule out infectious etiology. Given patient's reported urinary tract infection approximately 3 weeks ago. Encourage patient to report dyspnea, is improving a safe environment. The hospitalist services will continue follow patient medically manage existing comorbidities during her stay on the [facility] unit. At time of discharge, her medical care will return to primary care provider in [place], Dr. Brianne Llanes Psych 09/09/17: Discussed multiple treatment options, prognosis, diagnosis with sister/DPOA. ECT will not be available in [place] for several weeks. Will look into other options in nearby [facility]. For now, will make the following medication changes: - Decrease Baclofen to 5mg PO TID - Decrease Requip to 2mg PO TID - Discontinue tramadol - Decrease Remeron to 30mg PO q HS (plan to switch to another antidepressant) - Decrease Sinemet to 25mg in AM, 25mg in afternoon, 50mg at HS - Increase Ativan to 1mg PO TID - Discontinue PRN Haldol Will request dietary consult and encourage any PO intake. 09/09/17 Patient clinically appears dehydrated. Will assess labs including CBC, BMP, Mg, UA, and also CXR d/t altered mental status. Initial labs showed Na high-normal, K low-normal, stable renal function. WBC was normal, hgb was normal. Start NS @ 100 mL/hr, and I've asked staff to call me on my cell with any abnormal values to make adjustments to orders tonight. Prior UC from July was + E. coli, sensitive to 1st gen cephalosporins with an MALISSA of 16 -- she was treated with Keflex. Repeat UC from [facility] admit is showing preliminary growth. She's at risk for C. diff given recent abx use. If she develops diarrhea we will follow the stool collection protocol. TSH and vitamin B12 were unremarkable. Hgb A1c was 5.3%. Patient was seen simultaneously with Dr. Lucas, who formulated this plan. Also, sister wished to inform me that she is not interested in trialing the oral option for ECT at this time. She also does not plan on [place]. 09/10/17 Psych: Have discontinued Lexapro and will start Effexor XR 75mg PO q AM this morning. Increased lorazepam to 3mg PO TID and will monitor response. VSS. Decreased Sinemet to 12.5mg PO BID in AM, afternoon. Will leave the HS dose at 50mg for the time being but may consider decreasing in the future. Have discontinued Baclofen, Requip completely. 09/12/17 Psych: Have increased Ativan to 3mg PO TID and patient is responding more. If unable to take PO/SL, will give IM or IV. Continuing to look for ECT provider. 09/13/17 Psych: Continue current care; patient has shown some improvements. SW/ CM working with possible ECT provider in [place] area. 09/14/2017 Psych note- Continue current care 09/14/17 Labs remain stable. Will repeat BMP in am given she has not been taking much po. UC from admit +VRE, treated with fosfomycin on 09/11/17 but this does not cover this particular infection. Reviewed with Dr. Maria. Given that the only option for treatment is Zyvox and this is an MAOI and is contraindicated with her venlafaxine and mirtazapine, will not proceed with treatment. She has a normal white count and no fever. She had a repeat urine culture performed 2 days following the results of the positive VRE which only showed mixed bacterial bay. No further intervention is indicated at this time. D/W [facility] staff --possible transfer early next week to [place] for ECT. Vitals are stable. Nurse's notes and psychiatric notes reviewed. 09/15/17 Psych note- Continue current care 09/16/17 Repeat UC showing mixed bacterial bay. Prior UC showing VRE was not treated d/ t interaction with psych medications, coupled with being afebrile and having a normal WBC. Continue treatment per psych. Encourage PO food/fluid as able. BMP done yesterday was overall unremarkable -- slight increase in BUN. Poss dc soon to [place] or [place] for ECT. 09/16/17 Psych note- Continue current care. SW working on transfer for ECT
[2017-09-16] MEDS: MIRTAZAPINE 30 MG TABLET PO SCH (21:02)
[2017-09-16] MEDS: DOCUSATE SODIUM 100 MG CAPSULE PO SCH (21:02)
[2017-09-16] MEDS: SENNA + DOCUSATE TABLET PO SCH (21:03)
[2017-09-16] MEDS: SUCRALFATE 1 GM TABLET PO SCH (21:03)
[2017-09-17] MEDS: ALBUTEROL/IPRATROPIUM 2.5mg-0.5mg/3ml NEB AEROSOL SCH ×2 (08:00→19:58)
[2017-09-17] MEDS: LORazepam INTENSOL 1mg/0.5ml ORAL LIQUID PO SCH ×3 (10:28→20:51)
[2017-09-17] MEDS: NYSTATIN 500,000 units/5 ml ORAL LIQUID PO SCH ×4 (10:28→20:52)
[2017-09-17] MEDS: REFRESH CLASSIC Eye Drops 0.4ml EACH EYE SCH ×2 (10:29→20:52)
[2017-09-17] MEDS: Venlaflaxine XR 75 MG CAPSULE (24hr) PO SCH (10:40)
[2017-09-17] MEDS: POLYETHYL GLYCOL 3350 17gm PACKET PO SCH (10:40)
[2017-09-17] MEDS: PANTOPRAZOLE 40 MG TABLET PO SCH (10:43)
[2017-09-17] MEDS: NS 1,000 ML IV SCH (13:35)
--- NOTE | 2017-09-17 13:51 | Progress Note ---
- Date 09/17/17 Subjective: Marva is seen today in follow up. Nursing reports she is drinking a little more than yesterday, but still very small amounts. IV just inserted to get IVF going. Chart is reviewed for collateral information. Objective Vital signs: Temperature 97.3 F 09/17/17 10:21 Pulse Rate 91 09/17/17 10:21 Respiratory Rate 24 09/17/17 10:21 Blood Pressure 145/84 H 09/17/17 10:21 Pulse Oximetry 92 09/17/17 10:21 Height/Weight/BMI: Height 1.57 m Weight 75.6 kg Body Mass Index 34.6 Comments: Gen: Withdrawn, nonverbal. Thin, frail- chronically disabled. Head: Chronically asymmetrical? Difficult to determine due to positioning. ENT: Mouth Dry. CV: S1S2. RRR. Lungs: Clear, diminished, no SOA> Abd: soft, NT, ND. Ext: Thin. Muscle wasting. Results - Labs CBC & Chem 7: 09/12/17 08:11 09/17/17 06:44 Microbiology Results: Microbiology 09/10/17 16:44 Urine, Voided (Cc/notcc) Urine Culture - Final Mixed Bacterial Bay 09/08/17 14:12 Urine, Voided (Cc/notcc) Urine Culture - Final Enterococcus faecium, VRE - Impressions Reviewed. CT head negative. Assessment and Plan (1) Depression, major, recurrent, severe with psychosis Current visit: Yes Status: Acute Assessment and Plan: Impression Dehydration, altered mental status MDD with severe psychotic symptoms Parkinson's Disease GERD Allergies Urinary incontinence Constipation Plan 09/17/2017 Patient remains catatonic. Not eating or drinking well. Labs continue to worsen. Start IVF and repeat labs in AM. Poor PO intake continues- may need to consider PEG if family desires full support. +VRE colonization on Urine- afebrile. Will not treat due to psych medication interactions with Zyvox. Follow symptoms. Continue supportive care. Hoping to transfer to or [facility] for ECT. Chart reviewed for collateral information. Will add LMWH for DVT px. given decreased mobility. BP is a bit elevated- monitor trend. Not taking PO meds, so remains a difficult situation. DVT Prophylaxis: Lovenox Resuscitation Status: Do Not Resuscitate - Physician Narrative Narrative: Date: 09/17/17 Time: 1342 Hospital Course Summary Disclaimer: The visit summary below is not to be considered part of the above Progress Note. Hospital Course: Impression MDD with severe psychotic symptoms Parkinson's Disease GERD Allergies Urinary incontinence Constipation Plan Agree with admission to [facility] in the care of Dr. Burroughs for further psychiatric evaluation and treatment. Continue on Sinemet. 4. Chronic Parkinson's Carafate and Protonix for History of GERD and gastritis Miralax and Colace for chronic bowel motivation Will obtain a urine culture of urinalysis that was obtained in the emergency room to rule out infectious etiology. Given patient's reported urinary tract infection approximately 3 weeks ago. Encourage patient to report dyspnea, is improving a safe environment. The hospitalist services will continue follow patient medically manage existing comorbidities during her stay on the [facility] unit. At time of discharge, her medical care will return to primary care provider in [place], Dr. Brianne Llanes Psych 09/09/17: Discussed multiple treatment options, prognosis, diagnosis with sister/DPOA. ECT will not be available in [place] for several weeks. Will look into other options in nearby [facility]. For now, will make the following medication changes: - Decrease Baclofen to 5mg PO TID - Decrease Requip to 2mg PO TID - Discontinue tramadol - Decrease Remeron to 30mg PO q HS (plan to switch to another antidepressant) - Decrease Sinemet to 25mg in AM, 25mg in afternoon, 50mg at HS - Increase Ativan to 1mg PO TID - Discontinue PRN Haldol Will request dietary consult and encourage any PO intake. 09/09/17 Patient clinically appears dehydrated. Will assess labs including CBC, BMP, Mg, UA, and also CXR d/t altered mental status. Initial labs showed Na high-normal, K low-normal, stable renal function. WBC was normal, hgb was normal. Start NS @ 100 mL/hr, and I've asked staff to call me on my cell with any abnormal values to make adjustments to orders tonight. Prior UC from July was + E. coli, sensitive to 1st gen cephalosporins with an MALISSA of 16 -- she was treated with Keflex. Repeat UC from [facility] admit is showing preliminary growth. She's at risk for C. diff given recent abx use. If she develops diarrhea we will follow the stool collection protocol. TSH and vitamin B12 were unremarkable. Hgb A1c was 5.3%. Patient was seen simultaneously with Dr. Lucas, who formulated this plan. Also, sister wished to inform me that she is not interested in trialing the oral option for ECT at this time. She also does not plan on [place]. 09/10/17 Psych: Have discontinued Lexapro and will start Effexor XR 75mg PO q AM this morning. Increased lorazepam to 3mg PO TID and will monitor response. VSS. Decreased Sinemet to 12.5mg PO BID in AM, afternoon. Will leave the HS dose at 50mg for the time being but may consider decreasing in the future. Have discontinued Baclofen, Requip completely. 09/12/17 Psych: Have increased Ativan to 3mg PO TID and patient is responding more. If unable to take PO/SL, will give IM or IV. Continuing to look for ECT provider. 09/13/17 Psych: Continue current care; patient has shown some improvements. SW/ CM working with possible ECT provider in [place] area. 09/14/2017 Psych note- Continue current care 09/14/17 Labs remain stable. Will repeat BMP in am given she has not been taking much po. UC from admit +VRE, treated with fosfomycin on 09/11/17 but this does not cover this particular infection. Reviewed with Dr. Maria. Given that the only option for treatment is Zyvox and this is an MAOI and is contraindicated with her venlafaxine and mirtazapine, will not proceed with treatment. She has a normal white count and no fever. She had a repeat urine culture performed 2 days following the results of the positive VRE which only showed mixed bacterial bay. No further intervention is indicated at this time. D/W [facility] staff --possible transfer early next week to [place] for ECT. Vitals are stable. Nurse's notes and psychiatric notes reviewed. 09/15/17 Psych note- Continue current care 09/16/17 Repeat UC showing mixed bacterial bay. Prior UC showing VRE was not treated d/ t interaction with psych medications, coupled with being afebrile and having a normal WBC. Continue treatment per psych. Encourage PO food/fluid as able. BMP done yesterday was overall unremarkable -- slight increase in BUN. Poss dc soon to [place] or [place] for ECT. 09/16/17 Psych note- Continue current care. SW working on transfer for ECT 09/17/2017 Francisco continues to appear a bit dry. He did get a small amount of IVF yesterday. Low dose Lasix. Cardiology notes reviewed, as was echo. Appreciate cardiology assistance. EF is preserved. Question of possible bioprosthetic valve. Could consider CT of the chest to further evaluate valve and also ongoing infiltrates. Slow improvement. He is much weaker than normal- is requiring a lift to stand, which is new. D/W gym manager- plan will be to return to [place], but will need SNU for strengthening upon dismissal. HR is controlled. Continue SCDs for px.
[2017-09-17] MEDS: SALINE FLUSH 10ml SYRINGE IV PRN (14:00)
--- NOTE | 2017-09-17 17:06 | Neuropsych Progress Note ---
[facility] Subjective Date: 09/17/17 - Sujective/Severity of Illness Medications: Albuterol/Ipratropium (Duoneb) 3 ml AEROSOL Q2H PRN PRN Reason: Shortness of air/wheezing Albuterol/Ipratropium (Duoneb) 3 ml AEROSOL BID [facility] Last Admin: 09/17/17 08:00 Dose: 3 ml Artificial Tears (Refresh Classic) 1 drop EACH EYE BID [facility] Last Admin: 09/17/17 10:29 Dose: 1 drop Calcium/Vitamin D (Caltrate + D) 1 tab PO DAILY [facility] Last Admin: 09/09/17 09:51 Dose: Not Given Celecoxib (Celebrex) 200 mg PO DAILY [facility] Last Admin: 09/16/17 10:18 Dose: 200 mg Docusate Sodium (Colace) 100 mg PO HS [facility] Last Admin: 09/16/17 21:02 Dose: Not Given Enoxaparin Sodium (Lovenox) 40 mg SQ DAILY [facility] Fexofenadine HCl (Allyn) 180 mg PO DAILY PRN PRN Reason: Allergy symptoms Sodium Chloride (Normal Saline) 1,000 mls @ 100 mls/hr IV .Q10H [facility] Last Admin: 09/17/17 13:35 Dose: 100 mls/hr Lorazepam (Ativan Intensol) 3 mg PO TID [facility] Last Admin: 09/17/17 10:28 Dose: 3 mg Magnesium Hydroxide (Mom) 30 ml PO DAILY PRN PRN Reason: Constipation Last Admin: 09/10/17 08:54 Dose: 30 ml Mirtazapine (Remeron) 30 mg PO [facility] Last Admin: 09/16/17 21:02 Dose: Not Given Multivitamins (Total B + C) 1 tab PO DAILY [facility] Last Admin: 09/09/17 09:51 Dose: Not Given Nystatin (Mycostatin) 1 applic TP BID PRN PRN Reason: Rash Nystatin (Mycostatin) 5 ml PO QID [facility] Last Admin: 09/17/17 10:28 Dose: 5 ml Pantoprazole Sodium (Protonix Tab) 40 mg PO ACB [facility] Last Admin: 09/17/17 10:43 Dose: 40 mg Polyethylene Glycol (Miralax) 17 gm PO DAILY [facility] Last Admin: 09/17/17 10:40 Dose: Not Given Senna/Docusate Sodium (Senna Plus Tablet) 1 tab PO HS [facility] Last Admin: 09/16/17 21:03 Dose: Not Given Sucralfate (Carafate) 1 gm PO HS [facility] Last Admin: 09/16/17 21:03 Dose: Not Given Triamcinolone Acetonide (Kenalog) 1 applic TOP TID PRN PRN Reason: PRN orders Venlafaxine HCl (Effexor Xr) 75 mg PO WB [facility] Last Admin: 09/17/17 10:40 Dose: 75 mg Subjective: Patient seen and chart reviewed. Nursing reports pt slept well. Took in about 320cc of fluids. is now on IV fluids. States will open eyes more and mumbles at times. On face to face the pt does not open her eyes or respond. She does not appear to be in distress. Tolerating meds Start Time: 16:00 Stop Time: 16:15 Mental Status Exam Vitals: Last Vital Signs Temp 97.7 F 09/17/17 16:00 Pulse 91 09/17/17 16:00 Resp 20 09/17/17 16:00 BP 149/82 H 09/17/17 16:00 Pulse Ox 92 09/17/17 16:00 Height: 1.57 m Weight: 75.6 kg - Mental Status Exam Muscle Strength/Tone: Weak Dressing: Casual Grooming: Disheveled Attitude: Other (mostly appears catatonic) Motor Activity: Retardation Eye Contact: Poor Speech: Slowed Volume: Soft Rhythm: Mumbled, Paucity of Language Orientation: Disoriented to time, Disoriented to place, Disoriented to situation , Oriented to person Mood: Other (reports mood is "not good") Rate of Thoughts: Delayed Thought Organization: [place] Associations: Illogical Abstract Reasoning: Impaired, concrete Thought Content: Helplessness Perception/Psychotic: Perception Normal (per patient report) Language: Naming Impaired Fund of Knowledge: Poor fund of knowledge Memory: Poor-immediate, Poor-recent, Poor-remote Suicidal Ideation: Denies (though is not maintaining adequate PO intake) Homicidal Ideation: Denies Insight: Impaired Judgement: Impaired Impulse Control: Poor - Laboratory Result Diagrams: 09/12/17 08:11 09/17/17 06:44 Laboratory Results - last 24 hr 09/17/17 06:44 Turbidity < 20 Sodium 149 H Potassium 4.3 Chloride 109 H Carbon Dioxide 29 Anion Gap 11 BUN 31.0 H Creatinine 0.5 L GFR Calculation 122 BUN/Creatinine Ratio 62 H Glucose 137 H Calculated Osmolality 295 H Calcium 9.7 Icterus Index < 2 Specimen Hemolysis < 15 Assessment and Plan (1) Major depressive disorder, recurrent episode, severe with catatonia Problem details: with psychotic features Current visit: Yes Status: Acute (2) Parkinson disease Problem details: Other medical conditions: MDD with severe psychotic symptoms GERD Allergies Urinary incontinence Constipation Current visit: Yes Status: Acute (3) Urinary tract infection Problem details: treated with fosfomycin 09/11/17 Current visit: Yes Status: Acute Hospital Course Summary Disclaimer: The visit summary below is not to be considered part of the above Progress Note. Hospital Course: Impression MDD with severe psychotic symptoms Parkinson's Disease GERD Allergies Urinary incontinence Constipation Plan Agree with admission to [facility] in the care of Dr. Burroughs for further psychiatric evaluation and treatment. Continue on Sinemet. 4. Chronic Parkinson's Carafate and Protonix for History of GERD and gastritis Miralax and Colace for chronic bowel motivation Will obtain a urine culture of urinalysis that was obtained in the emergency room to rule out infectious etiology. Given patient's reported urinary tract infection approximately 3 weeks ago. Encourage patient to report dyspnea, is improving a safe environment. The hospitalist services will continue follow patient medically manage existing comorbidities during her stay on the [facility] unit. At time of discharge, her medical care will return to primary care provider in [place], Dr. Brianne Llanes Psych 09/09/17: Discussed multiple treatment options, prognosis, diagnosis with sister/DPOA. ECT will not be available in [place] for several weeks. Will look into other options in nearby [facility]. For now, will make the following medication changes: - Decrease Baclofen to 5mg PO TID - Decrease Requip to 2mg PO TID - Discontinue tramadol - Decrease Remeron to 30mg PO q HS (plan to switch to another antidepressant) - Decrease Sinemet to 25mg in AM, 25mg in afternoon, 50mg at HS - Increase Ativan to 1mg PO TID - Discontinue PRN Haldol Will request dietary consult and encourage any PO intake. 09/09/17 Patient clinically appears dehydrated. Will assess labs including CBC, BMP, Mg, UA, and also CXR d/t altered mental status. Initial labs showed Na high-normal, K low-normal, stable renal function. WBC was normal, hgb was normal. Start NS @ 100 mL/hr, and I've asked staff to call me on my cell with any abnormal values to make adjustments to orders tonight. Prior UC from July was + E. coli, sensitive to 1st gen cephalosporins with an MALISSA of 16 -- she was treated with Keflex. Repeat UC from [facility] admit is showing preliminary growth. She's at risk for C. diff given recent abx use. If she develops diarrhea we will follow the stool collection protocol. TSH and vitamin B12 were unremarkable. Hgb A1c was 5.3%. Patient was seen simultaneously with Dr. Lucas, who formulated this plan. Also, sister wished to inform me that she is not interested in trialing the oral option for ECT at this time. She also does [place] plan [place]. 09/10/17 Psych: Have discontinued Lexapro and will start Effexor XR 75mg PO q AM this morning. Increased lorazepam to 3mg PO TID and will monitor response. VSS. Decreased Sinemet to 12.5mg PO BID in AM, afternoon. Will leave the HS dose at 50mg for the time being but may consider decreasing in the future. Have discontinued Baclofen, Requip completely. 09/12/17 Psych: Have increased Ativan to 3mg PO TID and patient is responding more. If unable to take PO/SL, will give IM or IV. Continuing to look for ECT provider. 09/13/17 Psych: Continue current care; patient has shown some improvements. SW/ CM working with possible ECT provider in [place] area. 09/14/2017 Psych note- Continue current care 09/14/17 Labs remain stable. Will repeat BMP in am given she has not been taking much po. UC from admit +VRE, treated with fosfomycin on 09/11/17 but this does not cover this particular infection. Reviewed with Dr. Maria. Given that the only option for treatment is Zyvox and this is an MAOI and is contraindicated with her venlafaxine and mirtazapine, will not proceed with treatment. She has a normal white count and no fever. She had a repeat urine culture performed 2 days following the results of the positive VRE which only showed mixed bacterial bay. No further intervention is indicated at this time. D/W [facility] staff --possible transfer early next week to [place] for ECT. Vitals are stable. Nurse's notes and psychiatric notes reviewed. 09/15/17 Psych note- Continue current care 09/16/17 Repeat UC showing mixed bacterial bay. Prior UC showing VRE was not treated d/ t interaction with psych medications, coupled with being afebrile and having a normal WBC. Continue treatment per psych. Encourage PO food/fluid as able. BMP done yesterday was overall unremarkable -- slight increase in BUN. Poss dc soon to [place] or [place] for ECT. 09/16/17 Psych note- Continue current care. SW working on transfer for ECT 09/17/2017 Francisco continues to appear a bit dry. He did get a small amount of IVF yesterday. Low dose Lasix. Cardiology notes reviewed, as was echo. Appreciate cardiology assistance. EF is preserved. Question of possible bioprosthetic valve. Could consider CT of the chest to further evaluate valve and also ongoing infiltrates. Slow improvement. He is much weaker than normal- is requiring a lift to stand, which is new. 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 HR is controlled. Continue SCDs for px. 09/17/17 Psych note- Continue current care. Pt was denied at [facility]. Will encourage family to reconsider [place].
[2017-09-17] MEDS: ENOXAPARIN 40 MG/0.4 ML INJECTION SQ SCH (17:31)
[2017-09-17] MEDS: MIRTAZAPINE 30 MG TABLET PO SCH (20:52)
[2017-09-17] MEDS: SENNA + DOCUSATE TABLET PO SCH (20:53)
[2017-09-17] MEDS: SUCRALFATE 1 GM TABLET PO SCH (20:53)
[2017-09-17] MEDS: DOCUSATE SODIUM 100 MG CAPSULE PO SCH (20:53)
[2017-09-18] MEDS: ALBUTEROL/IPRATROPIUM 2.5mg-0.5mg/3ml NEB AEROSOL SCH ×2 (10:01→19:41)
[2017-09-18] MEDS: 1/2 NS 1,000 ML IV SCH ×2 (10:42→23:35)
[2017-09-18] MEDS: POLYETHYL GLYCOL 3350 17gm PACKET PO SCH (12:17)
[2017-09-18] MEDS: ENOXAPARIN 40 MG/0.4 ML INJECTION SQ SCH (12:18)
[2017-09-18] MEDS: Venlaflaxine XR 75 MG CAPSULE (24hr) PO SCH (12:18)
[2017-09-18] MEDS: REFRESH CLASSIC Eye Drops 0.4ml EACH EYE SCH ×2 (12:18→20:15)
[2017-09-18] MEDS: NYSTATIN 500,000 units/5 ml ORAL LIQUID PO SCH ×4 (12:18→20:14)
[2017-09-18] MEDS: PANTOPRAZOLE 40 MG TABLET PO SCH (12:25)
[2017-09-18] MEDS: LORazepam INTENSOL 1mg/0.5ml ORAL LIQUID PO SCH ×3 (12:25→20:13)
[2017-09-18] MEDS: NS 1,000 ML IV SCH (14:04)
--- NOTE | 2017-09-18 17:37 | Neuropsych Progress Note ---
[facility] Subjective Date: 09/18/17 - Sujective/Severity of Illness Medications: Albuterol/Ipratropium (Duoneb) 3 ml AEROSOL Q2H PRN PRN Reason: Shortness of air/wheezing Albuterol/Ipratropium (Duoneb) 3 ml AEROSOL BID [facility] Last Admin: 09/18/17 10:01 Dose: 3 ml Artificial Tears (Refresh Classic) 1 drop EACH EYE BID [facility] Last Admin: 09/18/17 12:18 Dose: 1 drop Calcium/Vitamin D (Caltrate + D) 1 tab PO DAILY [facility] Last Admin: 09/09/17 09:51 Dose: Not Given Celecoxib (Celebrex) 200 mg PO DAILY [facility] Last Admin: 09/16/17 10:18 Dose: 200 mg Docusate Sodium (Colace) 100 mg PO HS [facility] Last Admin: 09/17/17 20:53 Dose: Not Given Enoxaparin Sodium (Lovenox) 40 mg SQ DAILY [facility] Last Admin: 09/18/17 12:18 Dose: 40 mg Fexofenadine HCl (Allyn) 180 mg PO DAILY PRN PRN Reason: Allergy symptoms Sodium Chloride (1/2 Normal Saline) 1,000 mls @ 80 mls/hr IV .[id number] [facility] Last Admin: 09/18/17 10:42 Dose: 80 mls/hr Lorazepam (Ativan Intensol) 3 mg PO TID [facility] Last Admin: 09/18/17 17:28 Dose: 3 mg Magnesium Hydroxide (Mom) 30 ml PO DAILY PRN PRN Reason: Constipation Last Admin: 09/10/17 08:54 Dose: 30 ml Mirtazapine (Remeron) 30 mg PO HS [facility] Last Admin: 09/17/17 20:52 Dose: Not Given Multivitamins (Total B + C) 1 tab PO DAILY [facility] Last Admin: 09/09/17 09:51 Dose: Not Given Nystatin (Mycostatin) 1 applic TP BID PRN PRN Reason: Rash Nystatin (Mycostatin) 5 ml PO QID [facility] Last Admin: 09/18/17 17:28 Dose: 5 ml Pantoprazole Sodium (Protonix Tab) 40 mg PO ACB [facility] Last Admin: 09/18/17 12:25 Dose: 40 mg Polyethylene Glycol (Miralax) 17 gm PO DAILY [facility] Last Admin: 09/18/17 12:17 Dose: 17 gm Senna/Docusate Sodium (Senna Plus Tablet) 1 tab PO HS [facility] Last Admin: 09/17/17 20:53 Dose: Not Given Sodium Chloride (Iv Flush) 10 ml IV PRN PRN PRN Reason: Flushing Last Admin: 09/17/17 14:00 Dose: 10 ml Sucralfate (Carafate) 1 gm PO HS [facility] Last Admin: 09/17/17 20:53 Dose: Not Given Triamcinolone Acetonide (Kenalog) 1 applic TOP TID PRN PRN Reason: PRN orders Venlafaxine HCl (Effexor Xr) 75 mg PO WB [facility] Last Admin: 09/18/17 12:18 Dose: 75 mg Subjective: Patient seen and chart reviewed. Nursing reports pt slept well. Has been a little more alert at times and opening her eyes. Sister reports she has been slightly more alert. Is eating some with assistance. On face to face the pt is resting quietly in bed. She does not respond to questions but does not appear in distress. Tolerating meds Start Time: 16:30 Stop Time: 16:45 Mental Status Exam Vitals: Last Vital Signs Temp 97.0 F 09/18/17 16:00 Pulse 81 09/18/17 16:00 Resp 16 09/18/17 16:00 BP 126/69 09/18/17 16:00 Pulse Ox 95 09/18/17 16:00 Height: 1.57 m Weight: 75.6 kg - Mental Status Exam Muscle Strength/Tone: Weak Dressing: Casual Grooming: Disheveled Attitude: Other (mostly appears catatonic) Motor Activity: Retardation Eye Contact: Poor Speech: Slowed Volume: Soft Rhythm: Mumbled, Paucity of Language Orientation: Disoriented to time, Disoriented to place, Disoriented to situation , Oriented to person Mood: Other (reports mood is "not good") Rate of Thoughts: Delayed Thought Organization: [place] Associations: Illogical Abstract Reasoning: Impaired, concrete Thought Content: Helplessness Perception/Psychotic: Perception Normal (per patient report) Language: Naming Impaired Fund of Knowledge: Poor fund of knowledge Memory: Poor-immediate, Poor-recent, Poor-remote Suicidal Ideation: Denies (though is not maintaining adequate PO intake) Homicidal Ideation: Denies Insight: Impaired Judgement: Impaired Impulse Control: Poor - Laboratory Result Diagrams: 09/12/17 08:11 09/18/17 07:02 Laboratory Results - last 24 hr 09/18/17 07:02 Turbidity < 20 Sodium 155 H D Potassium 3.9 Chloride 113 H Carbon Dioxide 30 Anion Gap 12 BUN 27.0 H Creatinine 0.5 L GFR Calculation 122 BUN/Creatinine Ratio 54 H Glucose 111 H Calculated Osmolality 303 H Calcium 8.7 D Phosphorus 3.9 Magnesium 2.4 H Icterus Index < 2 Albumin 3.8 Specimen Hemolysis < 15 Assessment and Plan (1) Major depressive disorder, recurrent episode, severe with catatonia Problem details: with psychotic features Current visit: Yes Status: Acute (2) Parkinson disease Problem details: Other medical conditions: MDD with severe psychotic symptoms GERD Allergies Urinary incontinence Constipation Current visit: Yes Status: Acute (3) Urinary tract infection Problem details: treated with fosfomycin 09/11/17 Current visit: Yes Status: Acute Hospital Course Summary Disclaimer: The visit summary below is not to be considered part of the above Progress Note. Hospital Course: Impression MDD with severe psychotic symptoms Parkinson's Disease GERD Allergies Urinary incontinence Constipation Plan Agree with admission to [facility] in the care of Dr. Burroughs for further psychiatric evaluation and treatment. Continue on Sinemet. 4. Chronic Parkinson's Carafate and Protonix for History of GERD and gastritis Miralax and Colace for chronic bowel motivation Will obtain a urine culture of urinalysis that was obtained in the emergency room to rule out infectious etiology. Given patient's reported urinary tract infection approximately 3 weeks ago. Encourage patient to report dyspnea, is improving a safe environment. The hospitalist services will continue follow patient medically manage existing comorbidities during her stay on the [facility] unit. At time of discharge, her medical care will return to primary care provider in [place], Dr. Brianne Llanes Psych 09/09/17: Discussed multiple treatment options, prognosis, diagnosis with sister/DPOA. ECT will not be available in [place] for several weeks. Will look into other options in nearby cities. For now, will make the following medication changes: - Decrease Baclofen to 5mg PO TID - Decrease Requip to 2mg PO TID - Discontinue tramadol - Decrease Remeron to 30mg PO q HS (plan to switch to another antidepressant) - Decrease Sinemet to 25mg in AM, 25mg in afternoon, 50mg at HS - Increase Ativan to 1mg PO TID - Discontinue PRN Haldol Will request dietary consult and encourage any PO intake. 09/09/17 Patient clinically appears dehydrated. Will assess labs including CBC, BMP, Mg, UA, and also CXR d/t altered mental status. Initial labs showed Na high-normal, K low-normal, stable renal function. WBC was normal, hgb was normal. Start NS @ 100 mL/hr, and I've asked staff to call me on my cell with any abnormal values to make adjustments to orders tonight. Prior UC from July was + E. coli, sensitive to 1st gen cephalosporins with an MALISSA of 16 -- she was treated with Keflex. [facility] from [facility] is showing preliminary growth. She's at risk for C. diff given recent abx use. If she develops diarrhea we will follow the stool collection protocol. TSH and vitamin B12 were unremarkable. Hgb A1c was 5.3%. Patient was seen simultaneously with Dr. Lucas, who formulated this plan. Also, sister wished to inform me that she is not interested in trialing the oral option for ECT at this time. She also does [place] plan [place]. 09/10/17 Psych: Have discontinued Lexapro and will start Effexor XR 75mg PO q AM this morning. Increased lorazepam to 3mg PO TID and will monitor response. VSS. Decreased Sinemet to 12.5mg PO BID in AM, afternoon. Will leave the HS dose at 50mg for the time being but may consider decreasing in the future. Have discontinued Baclofen, Requip completely. 09/12/17 Psych: Have increased Ativan to 3mg PO TID and patient is responding more. If unable to take PO/SL, will give IM or IV. Continuing to look for ECT provider. 09/13/17 Psych: Continue current care; patient has shown some improvements. SW/ CM working with possible ECT provider in [place] area. 09/14/2017 Psych note- Continue current care 09/14/17 Labs remain stable. Will repeat BMP in am given she has not been taking much po. UC from admit +VRE, treated with fosfomycin on 09/11/17 but this does not cover this particular infection. Reviewed with Dr. Maria. Given that the only option for treatment is Zyvox and this is an MAOI and is contraindicated with her venlafaxine and mirtazapine, will not proceed with treatment. She has a normal white count and no fever. She had a repeat urine culture performed 2 days following the results of the positive VRE which only showed mixed bacterial bay. No further intervention is indicated at this time. D/W [facility] staff --possible transfer early next week to [place] for ECT. Vitals are stable. Nurse's notes and psychiatric notes reviewed. 09/15/17 Psych note- Continue current care 09/16/17 Repeat UC showing mixed bacterial bay. Prior UC showing VRE was not treated d/ t interaction with psych medications, coupled with being afebrile and having a normal WBC. Continue treatment per psych. Encourage PO food/fluid as able. BMP done yesterday was overall unremarkable -- slight increase in BUN. Poss dc soon to [place] or [place] for ECT. 09/16/17 Psych note- Continue current care. LISSY working on transfer for ECT 09/17/2017 Francisco continues to appear a bit dry. He did get a small amount of IVF yesterday. Low dose Lasix. Cardiology notes reviewed, as was echo. Appreciate cardiology assistance. EF is preserved. Question of possible bioprosthetic valve. Could consider CT of the chest to further evaluate valve and also ongoing infiltrates. Slow improvement. He is much weaker than normal- is requiring a lift to stand, which is new. D/W court manager- plan will be to return to [place], but will need SNU for strengthening upon dismissal. HR is controlled. Continue SCDs for px. 09/18/17 Psych note- Continue current. LISSY working on ECT options 09/17/17 Psych note- Continue current care. Pt was denied at [facility]. Will encourage family to reconsider [facility].
[2017-09-18] MEDS: MIRTAZAPINE 30 MG TABLET PO SCH (20:13)
[2017-09-18] MEDS: SENNA + DOCUSATE TABLET PO SCH (20:14)
[2017-09-18] MEDS: SUCRALFATE 1 GM TABLET PO SCH (20:14)
[2017-09-18] MEDS: DOCUSATE SODIUM 100 MG CAPSULE PO SCH (20:14)
[2017-09-19] MEDS: ALBUTEROL/IPRATROPIUM 2.5mg-0.5mg/3ml NEB AEROSOL SCH ×2 (06:57→19:09)
[2017-09-19] MEDS: LORazepam INTENSOL 1mg/0.5ml ORAL LIQUID PO SCH ×3 (08:42→21:03)
[2017-09-19] MEDS: POLYETHYL GLYCOL 3350 17gm PACKET PO SCH (08:42)
[2017-09-19] MEDS: REFRESH CLASSIC Eye Drops 0.4ml EACH EYE SCH ×2 (08:43→23:16)
[2017-09-19] MEDS: NYSTATIN 500,000 units/5 ml ORAL LIQUID PO SCH ×4 (08:43→23:16)
[2017-09-19] MEDS: Venlaflaxine XR 75 MG CAPSULE (24hr) PO SCH (08:43)
[2017-09-19] MEDS: ENOXAPARIN 40 MG/0.4 ML INJECTION SQ SCH (08:43)
[2017-09-19] MEDS: PANTOPRAZOLE 40 MG TABLET PO SCH (08:43)
--- NOTE | 2017-09-19 10:59 | Neuropsych Progress Note ---
[facility] Subjective Date: 09/19/17 - Sujective/Severity of Illness Medications: Albuterol/Ipratropium (Duoneb) 3 ml AEROSOL Q2H PRN PRN Reason: Shortness of air/wheezing Albuterol/Ipratropium (Duoneb) 3 ml AEROSOL BID [facility] Last Admin: 09/19/17 06:57 Dose: 3 ml Artificial Tears (Refresh Classic) 1 drop EACH EYE BID [facility] Last Admin: 09/19/17 08:43 Dose: 1 drop Calcium/Vitamin D (Caltrate + D) 1 tab PO DAILY [facility] Last Admin: 09/09/17 09:51 Dose: Not Given Celecoxib (Celebrex) 200 mg PO DAILY [facility] Last Admin: 09/16/17 10:18 Dose: 200 mg Docusate Sodium (Colace) 100 mg PO HS [facility] Last Admin: 09/18/17 20:14 Dose: 100 mg Enoxaparin Sodium (Lovenox) 40 mg SQ DAILY [facility] Last Admin: 09/19/17 08:43 Dose: 40 mg Fexofenadine HCl (Allyn) 180 mg PO DAILY PRN PRN Reason: Allergy symptoms Sodium Chloride (1/2 Normal Saline) 1,000 mls @ 80 mls/hr IV .[id number] [facility] Last Admin: 09/18/17 23:35 Dose: 80 mls/hr Lorazepam (Ativan Intensol) 3 mg PO TID [facility] Last Admin: 09/19/17 08:42 Dose: 3 mg Magnesium Hydroxide (Mom) 30 ml PO DAILY PRN PRN Reason: Constipation Last Admin: 09/10/17 08:54 Dose: 30 ml Mirtazapine (Remeron) 30 mg PO HS [facility] Last Admin: 09/18/17 20:13 Dose: 30 mg Multivitamins (Total B + C) 1 tab PO DAILY [facility] Last Admin: 09/09/17 09:51 Dose: Not Given Nystatin (Mycostatin) 1 applic TP BID PRN PRN Reason: Rash Nystatin (Mycostatin) 5 ml PO QID [facility] Last Admin: 09/19/17 08:43 Dose: 5 ml Pantoprazole Sodium (Protonix Tab) 40 mg PO ACB [facility] Last Admin: 09/19/17 08:43 Dose: 40 mg Polyethylene Glycol (Miralax) 17 gm PO DAILY [facility] Last Admin: 09/19/17 08:42 Dose: 17 gm Senna/Docusate Sodium (Senna Plus Tablet) 1 tab PO HS [facility] Last Admin: 09/18/17 20:14 Dose: 1 tab Sodium Chloride (Iv Flush) 10 ml IV PRN PRN PRN Reason: Flushing Last Admin: 09/17/17 14:00 Dose: 10 ml Sucralfate (Carafate) 1 gm PO HS [facility] Last Admin: 09/18/17 20:14 Dose: 1 gm Triamcinolone Acetonide (Kenalog) 1 applic TOP TID PRN PRN Reason: PRN orders Venlafaxine HCl (Effexor Xr) 75 mg PO WB [facility] Last Admin: 09/19/17 08:43 Dose: 75 mg Subjective: Patient seen and chart reviewed. Nursing reports pt is doing about the same. Eating some. Sleeping well. Remains on IV fluids. On face to face the pt does not respond to questions but does not appear to be in any distress. Tolerating meds Start Time: 10:00 Stop Time: 10:15 Mental Status Exam Vitals: Last Vital Signs Temp 97.2 F 09/19/17 08:00 Pulse 73 09/19/17 08:00 Resp 16 09/19/17 08:00 BP 140/82 H 09/19/17 08:00 Pulse Ox 98 09/19/17 08:00 Height: 1.57 m Weight: 75.6 kg - Mental Status Exam Muscle Strength/Tone: Weak Dressing: Casual Grooming: Disheveled Attitude: Other (mostly appears catatonic) Motor Activity: Retardation Eye Contact: Poor Speech: Slowed Volume: Soft Rhythm: Mumbled, Paucity of Language Orientation: Disoriented to time, Disoriented to place, Disoriented to situation , Oriented to person Mood: Other (reports mood is "not good") Rate of Thoughts: Delayed Thought Organization: [place] Associations: Illogical Abstract Reasoning: Impaired, concrete Thought Content: Helplessness Perception/Psychotic: Perception Normal (per patient report) Language: Naming Impaired Fund of Knowledge: Poor fund of knowledge Memory: Poor-immediate, Poor-recent, Poor-remote Suicidal Ideation: Denies (though is not maintaining adequate PO intake) Homicidal Ideation: Denies Insight: Impaired Judgement: Impaired Impulse Control: Poor - Laboratory Result Diagrams: 09/12/17 08:11 09/19/17 07:14 Laboratory Results - last 24 hr 09/19/17 07:14 Turbidity < 20 Sodium 148 H D Potassium 3.6 Chloride 109 H Carbon Dioxide 31 H Anion Gap 8 BUN 20.0 H Creatinine 0.4 L GFR Calculation 157 BUN/Creatinine Ratio 50 H Glucose 101 Calculated Osmolality 287 H Calcium 8.9 Icterus Index < 2 Specimen Hemolysis < 15 Assessment and Plan (1) Major depressive disorder, recurrent episode, severe with catatonia Problem details: with psychotic features Current visit: Yes Status: Acute (2) Parkinson disease Problem details: Other medical conditions: MDD with severe psychotic symptoms GERD Allergies Urinary incontinence Constipation Current visit: Yes Status: Acute (3) Urinary tract infection Problem details: treated with fosfomycin 09/11/17 Current visit: Yes Status: Acute Hospital Course Summary Disclaimer: The visit summary below is not to be considered part of the above Progress Note. Hospital Course: Impression MDD with severe psychotic symptoms Parkinson's Disease GERD Allergies Urinary incontinence Constipation Plan Agree with admission to [facility] in the care of Dr. Burroughs for further psychiatric evaluation and treatment. Continue on Sinemet. 4. Chronic Parkinson's Carafate and Protonix for History of GERD and gastritis Miralax and Colace for chronic bowel motivation Will obtain a urine culture of urinalysis that was obtained in the emergency room to rule out infectious etiology. Given patient's reported urinary tract infection approximately 3 weeks ago. Encourage patient to report dyspnea, is improving a safe environment. The hospitalist services will continue follow patient medically manage existing comorbidities during her stay on the [facility] unit. At time of discharge, her medical care will return to primary care provider in [place], Dr. Brianne Llanes Psych 09/09/17: Discussed multiple treatment options, prognosis, diagnosis with sister/DPOA. ECT will not be available in [place] for several weeks. Will look into other options in nearby cities. For now, will make the following medication changes: - Decrease Baclofen to 5mg PO TID - Decrease Requip to 2mg PO TID - Discontinue tramadol - Decrease Remeron to 30mg PO q HS (plan to switch to another antidepressant) - Decrease Sinemet to 25mg in AM, 25mg in afternoon, 50mg at HS - Increase Ativan to 1mg PO TID - Discontinue PRN Haldol Will request dietary consult and encourage any PO intake. 09/09/17 Patient clinically appears dehydrated. Will assess labs including CBC, BMP, Mg, UA, and also CXR d/t altered mental status. Initial labs showed Na high-normal, K low-normal, stable renal function. WBC was normal, hgb was normal. Start NS @ 100 mL/hr, and I've asked staff to call me on my cell with any abnormal values to make adjustments to orders tonight. Prior UC from July was + E. coli, sensitive to 1st gen cephalosporins with an MALISSA of 16 -- she was treated with Keflex. Repeat UC from [facility] admit is showing preliminary growth. She's at risk for C. diff given recent abx use. If she develops diarrhea we will follow the stool collection protocol. TSH and vitamin B12 were unremarkable. Hgb A1c was 5.3%. Patient was seen simultaneously with Dr. Lucas, who formulated this plan. Also, sister wished to inform me that she is not interested in trialing the oral option for ECT at this time. She also does not plan on [place] Marva [place]. 09/10/17 Psych: Have discontinued Lexapro and will start Effexor XR 75mg PO q AM this morning. Increased lorazepam to 3mg PO TID and will monitor response. VSS. Decreased Sinemet to 12.5mg PO BID in AM, afternoon. Will leave the HS dose at 50mg for the time being but may consider decreasing in the future. Have discontinued Baclofen, Requip completely. 09/12/17 Psych: Have increased Ativan to 3mg PO TID and patient is responding more. If unable to take PO/SL, will give IM or IV. Continuing to look for ECT provider. 09/13/17 Psych: Continue current care; patient has shown some improvements. SW/ CM working with possible ECT provider in [place] area. 09/14/2017 Psych note- Continue current care 09/14/17 Labs remain stable. Will repeat BMP in am given she has not been taking much po. UC from admit +VRE, treated with fosfomycin on 09/11/17 but this does not cover this particular infection. Reviewed with Dr. Maria. Given that the only option for treatment is Zyvox and this is an MAOI and is contraindicated with her venlafaxine and mirtazapine, will not proceed with treatment. She has a normal white count and no fever. She had a repeat urine culture performed 2 days following the results of the positive VRE which only showed mixed bacterial bay. No further intervention is indicated at this time. D/W [facility] staff --possible transfer early next week to [place] for ECT. Vitals are stable. Nurse's notes and psychiatric notes reviewed. 09/15/17 Psych note- Continue current care 09/16/17 Repeat UC showing mixed bacterial bay. Prior UC showing VRE was not treated d/ t interaction with psych medications, coupled with being afebrile and having a normal WBC. Continue treatment per psych. Encourage PO food/fluid as able. BMP done yesterday was overall unremarkable -- slight increase in BUN. Poss dc soon to [place] or [place] for ECT. 09/16/17 Psych note- Continue current care. LISSY working on transfer for ECT 09/17/2017 Francisco continues to appear a bit dry. He did get a small amount of IVF yesterday. Low dose Lasix. Cardiology notes reviewed, as was echo. Appreciate cardiology assistance. EF is preserved. Question of possible bioprosthetic valve. Could consider CT of the chest to further evaluate valve and also ongoing infiltrates. Slow improvement. He is much weaker than normal- is requiring a lift to stand, which is new. D/W manager linux- plan will be to return to [place], but will need SNU for strengthening upon dismissal. HR is controlled. Continue SCDs for px. 09/18/17 Psych note- Continue current. LISSY working on ECT options 09/17/17 Psych note- Continue current care. Pt was denied at [facility]. Will encourage family to reconsider [place]. 09/19/17 Psych note- Continue working on ECT treatment options
[2017-09-19] MEDS: 1/2 NS 1,000 ML IV SCH (12:37)
--- NOTE | 2017-09-19 13:20 | Progress Note ---
- Date 09/19/17 Subjective: Marva is seen today while sitting in the dining area with nursing at her side , assisting with feedings. Nursing reports that she seems to have some delay with swallowing today and is limiting feeding due to concern for aspiration. Marva does not engage in the exam or answer any questions, though does open her eyes briefly on exam. Nursing denies any concerns. Awaiting discharge plan as case management continues to work on finding ECT treatment options for the patient. Objective Vital signs: Temperature 97.2 F 09/19/17 08:00 Pulse Rate 73 09/19/17 08:00 Respiratory Rate 16 09/19/17 08:00 Blood Pressure 140/82 H 09/19/17 08:00 Pulse Oximetry 98 09/19/17 08:00 Height/Weight/BMI: Height 5 ft 2 in Weight 166 lb 10.711 oz Body Mass Index 34.6 Comments: Sitting in her wheelchair. Exam and history limited due to patient's mental status. - Constitutional Present: no acute distress, well developed - Routine HEENT Exam Head: Present: normocephalic, atraumatic ENT: Present: mucous membranes moist - Routine Respiratory Exam Present: decreased breath sounds. Absent: respiratory distress, wheezes - Routine Cardiovascular Exam Present: RRR, S1, S2 - Routine Abdominal Exam Present: soft, normoactive bowel sounds, non distended - Routine Extremities Exam Present: edema, pulses intact - Routine Musculoskeletal Exam Musculoskeletal: Present: no clubbing or cyanosis - Routine Skin Exam Present: dry, warm Comments: Afebrile. - Routine Neurological Exam Patient opens her eyes briefly on exam. - Routine Psychiatric Exam Present: unable to assess Results - Labs CBC & Chem 7: 09/12/17 08:11 09/19/17 07:14 Microbiology Results: Microbiology 09/10/17 16:44 Urine, Voided (Cc/notcc) Urine Culture - Final Mixed Bacterial Bay 09/08/17 14:12 Urine, Voided (Cc/notcc) Urine Culture - Final Enterococcus faecium, VRE Assessment and Plan (1) Depression, major, recurrent, severe with psychosis Current visit: Yes Status: Acute Assessment and Plan: Impression Dehydration, altered mental status MDD with severe psychotic symptoms Parkinson's Disease GERD Allergies Urinary incontinence Constipation Hypernatremia Plan Patient remains catatonic. Minimal eating and drinking even with nursing assistance. Delayed swallowing per nursing. May need to consider PEG if family desires full support. Patient remains on 1/2NS at 80cc/hr. Hypernatremia improving (Na 148). Will recheck labs in AM. Given poor oral intake, will continue IVF and change to 1/2NS with KCl at 80cc/ hr. +VRE colonization on urine- remains afebrile. Will not treat due to psych medication interactions with Zyvox.Continue to monitor closely. Continue supportive care. Hoping to transfer to or [facility] for ECT. Chart reviewed for collateral information. Lovenox for DVT prophylaxis given limited movement. Continue to monitor blood pressure. Not taking PO meds, so remains a difficult situation. DVT Prophylaxis: Lovenox GI Prophylaxis: Protonix Resuscitation Status: Do Not Resuscitate - Time spent with patient Time with patient PN: 30 minutes - Physician Narrative Physician: Asha Cruz MD Narrative: Date: 09/19/17 Time: 1809 I have independently evaluated and examined this patient. I reviewed the chart, the patient's history, and the SALES RECORD CLERK/PA's documented findings as above. We discussed and formulated the assessment and plan as above with additions as below: Mrs. Smalls was resting in bed when seen late this afternoon; her sister was at bedside indicating the patient had been unresponsive while she was present. Sister questioned why Sinemet has been discontinued even before patient was unable to swallow safely. Appears to be resting comfortably, tongue protruding slightly, respirations nonlabored Abdomen soft, no suprapubic tenderness present Chart reviewed-no leukocytosis or fever throughout hospital stay Appears Sinemet was tapered off due to psychosis/hallucinations present early in stay. Sodium improving with hypotonic fluids, continue the latter. May require Dobbhoff or feeding tube pending further psychiatric stabilization/ECT. Hospital Course Summary Disclaimer: The visit summary below is not to be considered part of the above Progress Note. Hospital Course: Impression MDD with severe psychotic symptoms Parkinson's Disease GERD Allergies Urinary incontinence Constipation Plan Agree with admission to [facility] in the care of Dr. Burroughs for further psychiatric evaluation and treatment. Continue on Sinemet. 4. Chronic Parkinson's Carafate and Protonix for History of GERD and gastritis Miralax and Colace for chronic bowel motivation Will obtain a urine culture of urinalysis that was obtained in the emergency room to rule out infectious etiology. Given patient's reported urinary tract infection approximately 3 weeks ago. Encourage patient to report dyspnea, is improving a safe environment. The hospitalist services will continue follow patient medically manage existing comorbidities during her stay on the [facility] unit. At time of discharge, her medical care will return to primary care provider in [place], Dr. Brianne Llanes Psych 09/09/17: Discussed multiple treatment options, prognosis, diagnosis with sister/DPOA. ECT will not be available in [place] for several weeks. Will look into other options in nearby [facility]. For now, will make the following medication changes: - Decrease Baclofen to 5mg PO TID - Decrease Requip to 2mg PO TID - Discontinue tramadol - Decrease Remeron to 30mg PO q HS (plan to switch to another antidepressant) - Decrease Sinemet to 25mg in AM, 25mg in afternoon, 50mg at HS - Increase Ativan to 1mg PO TID - Discontinue PRN Haldol Will request dietary consult and encourage any PO intake. 09/09/17 Patient clinically appears dehydrated. Will assess labs including CBC, BMP, Mg, UA, and also CXR d/t altered mental status. Initial labs showed Na high-normal, K low-normal, stable renal function. WBC was normal, hgb was normal. Start NS @ 100 mL/hr, and I've asked staff to call me on my cell with any abnormal values to make adjustments to orders tonight. Prior UC from July was + E. coli, sensitive to 1st gen cephalosporins with an MALISSA of 16 -- she was treated with Keflex. Repeat UC from [facility] admit is showing preliminary growth. She's at risk for C. diff given recent abx use. If she develops diarrhea we will follow the stool collection protocol. TSH and vitamin B12 were unremarkable. Hgb A1c was 5.3%. Patient was seen simultaneously with Dr. Lucas, who formulated this plan. Also, sister wished to inform me that she is not interested in trialing the oral option for ECT at this time. She also does not plan on [place]. 09/10/17 Psych: Have discontinued Lexapro and will start Effexor XR 75mg PO q AM this morning. Increased lorazepam to 3mg PO TID and will monitor response. VSS. Decreased Sinemet to 12.5mg PO BID in AM, afternoon. Will leave the HS dose at 50mg for the time being but may consider decreasing in the future. Have discontinued Baclofen, Requip completely. 09/12/17 Psych: Have increased Ativan to 3mg PO TID and patient is responding more. If unable to take PO/SL, will give IM or IV. Continuing to look for ECT provider. 09/13/17 Psych: Continue current care; patient has shown some improvements. SW/ CANDICE working with possible ECT provider in [place] area. 09/14/2017 Psych note- Continue current care 09/14/17 Labs remain stable. Will repeat BMP in am given she has not been taking much po. UC from admit +VRE, treated with fosfomycin on 09/11/17 but this does not cover this particular infection. Reviewed with Dr. Maria. Given that the only option for treatment is Zyvox and this is an MAOI and is contraindicated with her venlafaxine and mirtazapine, will not proceed with treatment. She has a normal white count and no fever. She had a repeat urine culture performed 2 days following the results of the positive VRE which only showed mixed bacterial bay. No further intervention is indicated at this time. D/W [facility] staff --possible transfer early next week to [place] for ECT. Vitals are stable. Nurse's notes and psychiatric notes reviewed. 09/15/17 Psych note- Continue current care 09/16/17 Repeat UC showing mixed bacterial bay. Prior UC showing VRE was not treated d/ t interaction with psych medications, coupled with being afebrile and having a normal WBC. Continue treatment per psych. Encourage PO food/fluid as able. BMP done yesterday was overall unremarkable -- slight increase in BUN. Poss dc soon to [place] or [place] for ECT. 09/16/17 Psych note- Continue current care. LISSY working on transfer for ECT 09/17/2017 Francisco continues to appear a bit dry. He did get a small amount of IVF yesterday. Low dose Lasix. Cardiology notes reviewed, as was echo. Appreciate cardiology assistance. EF is preserved. Question of possible bioprosthetic valve. Could consider CT of the chest to further evaluate valve and also ongoing infiltrates. Slow improvement. He is much weaker than normal- is requiring a lift to stand, which is new. D/W certified energy manager- plan will be to return to [place], but will need SNU for strengthening upon dismissal. HR is controlled. Continue SCDs for px. 09/18/17 Psych note- Continue current. SW working on ECT options 09/17/17 Psych note- Continue current care. Pt was denied at [facility]. Will encourage family to reconsider . 09/19/17 Psych note- Continue working on ECT treatment options Plan - 09/19/17 Patient remains catatonic. Minimal eating and drinking even with nursing assistance. Delayed swallowing per nursing. May need to consider PEG if family desires full support. Patient remains on 1/2NS at 80cc/hr. Hypernatremia improving (Na 148). Will recheck labs in AM. Given poor oral intake, will continue IVF and change to 1/2NS with KCl at 80cc/ hr. +VRE colonization on urine- remains afebrile. Will not treat due to psych medication interactions with Zyvox.Continue to monitor closely. Continue supportive care. Hoping to transfer to or [facility] for ECT. Chart reviewed for collateral information. Lovenox for DVT prophylaxis given limited movement. Continue to monitor blood pressure. Not taking PO meds, so remains a difficult situation.
[2017-09-19] MEDS: 1/2 NS with KCL 20mEq 1,000 ML IV SCH (14:43)
[2017-09-19] MEDS: SENNA + DOCUSATE TABLET PO SCH (23:16)
[2017-09-19] MEDS: MIRTAZAPINE 30 MG TABLET PO SCH (23:16)
[2017-09-19] MEDS: DOCUSATE SODIUM 100 MG CAPSULE PO SCH (23:16)
[2017-09-19] MEDS: SUCRALFATE 1 GM TABLET PO SCH (23:17)
[2017-09-20] MEDS: 1/2 NS with KCL 20mEq 1,000 ML IV SCH (03:18)
[2017-09-20] MEDS: ALBUTEROL/IPRATROPIUM 2.5mg-0.5mg/3ml NEB AEROSOL SCH ×2 (06:33→19:38)
[2017-09-20] MEDS: ENOXAPARIN 40 MG/0.4 ML INJECTION SQ SCH (09:39)
[2017-09-20] MEDS: LORazepam INTENSOL 1mg/0.5ml ORAL LIQUID PO SCH ×3 (09:41→20:19)
[2017-09-20] MEDS: NYSTATIN 500,000 units/5 ml ORAL LIQUID PO SCH ×2 (09:42→12:52)
[2017-09-20] MEDS: PANTOPRAZOLE 40 MG TABLET PO SCH (09:44)
[2017-09-20] MEDS: Venlaflaxine XR 75 MG CAPSULE (24hr) PO SCH (09:44)
[2017-09-20] MEDS: REFRESH CLASSIC Eye Drops 0.4ml EACH EYE SCH ×2 (09:51→20:20)
[2017-09-20] MEDS: POLYETHYL GLYCOL 3350 17gm PACKET PO SCH (09:51)
[2017-09-20] MEDS: NS with KCL 20 mEq 1,000 ML IV SCH (10:56)
--- NOTE | 2017-09-20 15:52 | Neuropsych Progress Note ---
[facility] Subjective Date: 09/20/17 - Sujective/Severity of Illness Medications: Albuterol/Ipratropium (Duoneb) 3 ml AEROSOL Q2H PRN PRN Reason: Shortness of air/wheezing Albuterol/Ipratropium (Duoneb) 3 ml AEROSOL BID [facility] Last Admin: 09/20/17 06:33 Dose: 3 ml Artificial Tears (Refresh Classic) 1 drop EACH EYE BID [facility] Last Admin: 09/20/17 09:51 Dose: Not Given Calcium/Vitamin D (Caltrate + D) 1 tab PO DAILY [facility] Last Admin: 09/09/17 09:51 Dose: Not Given Celecoxib (Celebrex) 200 mg PO DAILY [facility] Last Admin: 09/16/17 10:18 Dose: 200 mg Docusate Sodium (Colace) 100 mg PO HS [facility] Last Admin: 09/19/17 23:16 Dose: Not Given Enoxaparin Sodium (Lovenox) 40 mg SQ DAILY [facility] Last Admin: 09/20/17 09:39 Dose: 40 mg Fexofenadine HCl (Allyn) 180 mg PO DAILY PRN PRN Reason: Allergy symptoms Potassium Chloride/Sodium Chloride (Ns With Kcl 20 Meq Premix) 1,000 mls @ 75 mls/hr IV .[id number] [facility] Last Admin: 09/20/17 10:56 Dose: 75 mls/hr Lorazepam (Ativan Intensol) 3 mg PO TID [facility] Last Admin: 09/20/17 14:54 Dose: 3 mg Magnesium Hydroxide (Mom) 30 ml PO DAILY PRN PRN Reason: Constipation Last Admin: 09/10/17 08:54 Dose: 30 ml Mirtazapine (Remeron) 30 mg PO HS [facility] Last Admin: 09/19/17 23:16 Dose: Not Given Multivitamins (Total B + C) 1 tab PO DAILY [facility] Last Admin: 09/09/17 09:51 Dose: Not Given Nystatin (Mycostatin) 1 applic TP BID PRN PRN Reason: Rash Pantoprazole Sodium (Protonix Tab) 40 mg PO ACB [facility] Last Admin: 09/20/17 09:44 Dose: Not Given Polyethylene Glycol (Miralax) 17 gm PO DAILY [facility] Last Admin: 09/20/17 09:51 Dose: Not Given Senna/Docusate Sodium (Senna Plus Tablet) 1 tab PO HS [facility] Last Admin: 09/19/17 23:16 Dose: Not Given Sodium Chloride (Iv Flush) 10 ml IV PRN PRN PRN Reason: Flushing Last Admin: 09/17/17 14:00 Dose: 10 ml Sucralfate (Carafate) 1 gm PO [facility] Last Admin: 09/19/17 23:17 Dose: Not Given Triamcinolone Acetonide (Kenalog) 1 applic TOP TID PRN PRN Reason: PRN orders Venlafaxine HCl (Effexor Xr) 75 mg PO [facility] Last Admin: 09/20/17 09:44 Dose: Not Given Subjective: Patient seen and chart reviewed. Nursing reports pt is doing about the same.She is trying to talk a little more and is swallowing better. On face to face the pt is resting quietly. She does not respond to questions but does not appear to be in any distress. Tolerating meds Start Time: 15:00 Stop Time: 15:15 Mental Status Exam Vitals: Last Vital Signs Temp 97.1 F 09/20/17 08:00 Pulse 91 09/20/17 08:00 Resp 26 H 09/20/17 08:00 BP 161/72 H 09/20/17 08:00 Pulse Ox 96 09/20/17 08:00 Height: 1.57 m Weight: 75.6 kg - Mental Status Exam Muscle Strength/Tone: Weak Dressing: Casual Grooming: Disheveled Attitude: Other (mostly appears catatonic) Motor Activity: Retardation Eye Contact: Poor Speech: Slowed Volume: Soft Rhythm: Mumbled, Paucity of Language Orientation: Disoriented to time, Disoriented to place, Disoriented to situation , Oriented to person Mood: Other (reports mood is "not good") Rate of Thoughts: Delayed Thought Organization: [place] Associations: Illogical Abstract Reasoning: Impaired, concrete Thought Content: Helplessness Perception/Psychotic: Perception Normal (per patient report) Language: Naming Impaired Fund of Knowledge: Poor fund of knowledge Memory: Poor-immediate, Poor-recent, Poor-remote Suicidal Ideation: Denies (though is not maintaining adequate PO intake) Homicidal Ideation: Denies Insight: Impaired Judgement: Impaired Impulse Control: Poor - Laboratory Result Diagrams: 09/20/17 06:30 09/20/17 06:30 Laboratory Results - last 24 hr 09/20/17 09/20/17 06:30 06:30 WBC 3.7 L RBC 4.17 Hgb 13.2 Hct 40.8 MCV 97.8 MCH 31.7 MCHC 32.4 RDW Std Deviation 45.1 Plt Count 150 MPV 10.5 Immature Gran % (Auto) 0.3 Neut % (Auto) 68.1 H Lymph % (Auto) 19.7 L [place] % (Auto) 9.2 H Eos % (Auto) 2.4 Baso % (Auto) 0.3 Neut # (Auto) 2.5 Lymph # (Auto) 0.7 L [place] # (Auto) 0.3 Eos # (Auto) 0.1 Baso # (Auto) 0.0 Abs Immat Gran (auto) 0.01 Turbidity < 20 Sodium 143 Potassium 3.8 Chloride 108 H Carbon Dioxide 26 Anion Gap 9 BUN 12.0 Creatinine 0.4 L Estimated Creat Clear 49 GFR Calculation 157 BUN/Creatinine Ratio 30 H Glucose 88 Calculated Osmolality 274 Calcium 8.5 Magnesium 1.9 D Icterus Index < 2 Specimen Hemolysis < 15 Assessment and Plan (1) Major depressive disorder, recurrent episode, severe with catatonia Problem details: with psychotic features Current visit: Yes Status: Acute (2) Parkinson disease Problem details: Other medical conditions: MDD with severe psychotic symptoms GERD Allergies Urinary incontinence Constipation Current visit: Yes Status: Acute (3) Urinary tract infection Problem details: treated with fosfomycin 09/11/17 Current visit: Yes Status: Acute Hospital Course Summary Disclaimer: The visit summary below is not to be considered part of the above Progress Note. Hospital Course: Impression MDD with severe psychotic symptoms Parkinson's Disease GERD Allergies Urinary incontinence Constipation Plan Agree with admission to [facility] in the care of Dr. Burroughs for further psychiatric evaluation and treatment. Continue on Sinemet. 4. Chronic Parkinson's Carafate and Protonix for History of GERD and gastritis Miralax and Colace for chronic bowel motivation Will obtain a urine culture of urinalysis that was obtained in the emergency room to rule out infectious etiology. Given patient's reported urinary tract infection approximately 3 weeks ago. Encourage patient to report dyspnea, is improving a safe environment. The hospitalist services will continue follow patient medically manage existing comorbidities during her stay on the [facility] unit. At time of discharge, her medical care will return to primary care provider in [place], Dr. Brianne Llanes Psych 09/09/17: Discussed multiple treatment options, prognosis, diagnosis with sister/DPOA. ECT will not be available in [place] for several weeks. Will look into other options in nearby cities. For now, will make the following medication changes: - Decrease Baclofen to 5mg PO TID - Decrease Requip to 2mg PO TID - Discontinue tramadol - Decrease Remeron to 30mg PO q HS (plan to switch to another antidepressant) - Decrease Sinemet to 25mg in AM, 25mg in afternoon, 50mg at HS - Increase Ativan to 1mg PO TID - Discontinue PRN Haldol Will request dietary consult and encourage any PO intake. 09/09/17 Patient clinically appears dehydrated. Will assess labs including CBC, BMP, Mg, UA, and also CXR d/t altered mental status. Initial labs showed Na high-normal, K low-normal, stable renal function. WBC was normal, hgb was normal. Start NS @ 100 mL/hr, and I've asked staff to call me on my cell with any abnormal values to make adjustments to orders tonight. Prior UC from July was + E. coli, sensitive to 1st gen cephalosporins with an MALISSA of 16 -- she was treated with Keflex. Repeat UC from [facility] admit is showing preliminary growth. She's at risk for C. diff given recent abx use. If she develops diarrhea we will follow the stool collection protocol. TSH and vitamin B12 were unremarkable. Hgb A1c was 5.3%. Patient was seen simultaneously with Dr. Lucas, who formulated this plan. Also, sister wished to inform me that she is not interested in trialing the oral option for ECT at this time. She also does not plan on transporting [place] state [place]. 09/10/17 Psych: Have discontinued Lexapro and will start Effexor XR 75mg PO q AM this morning. Increased lorazepam to 3mg PO TID and will monitor response. VSS. Decreased Sinemet to 12.5mg PO BID in AM, afternoon. Will leave the HS dose at 50mg for the time being but may consider decreasing in the future. Have discontinued Baclofen, Requip completely. 09/12/17 Psych: Have increased Ativan to 3mg PO TID and patient is responding more. If unable to take PO/SL, will give IM or IV. Continuing to look for ECT provider. 09/13/17 Psych: Continue current care; patient has shown some improvements. SW/ CANDICE working with possible ECT provider in [place] area. 09/14/2017 Psych note- Continue current care 09/14/17 Labs remain stable. Will repeat BMP in am given she has not been taking much po. UC from admit +VRE, treated with fosfomycin on 09/11/17 but this does not cover this particular infection. Reviewed with Dr. Maria. Given that the only option for treatment is Zyvox and this is an MAOI and is contraindicated with her venlafaxine and mirtazapine, will not proceed with treatment. She has a normal white count and no fever. She had a repeat urine culture performed 2 days following the results of the positive VRE which only showed mixed bacterial bay. No further intervention is indicated at this time. D/W [facility] staff --possible transfer early next week to [place] for ECT. Vitals are stable. Nurse's notes and psychiatric notes reviewed. 09/15/17 Psych note- Continue current care 09/16/17 Repeat UC showing mixed bacterial bay. Prior UC showing VRE was not treated d/ t interaction with psych medications, coupled with being afebrile and having a normal WBC. Continue treatment per psych. Encourage PO food/fluid as able. BMP done yesterday was overall unremarkable -- slight increase in BUN. Poss dc soon to [place] or [place] for ECT. 09/16/17 Psych note- Continue current care. LISSY working on transfer for ECT 09/17/2017 Francisco continues to appear a bit dry. He did get a small amount of IVF yesterday. Low dose Lasix. Cardiology notes reviewed, as was echo. Appreciate cardiology assistance. EF is preserved. Question of possible bioprosthetic valve. Could consider CT of the chest to further evaluate valve and also ongoing infiltrates. Slow improvement. He is much weaker than normal- is requiring a lift to stand, which is new. 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 HR is controlled. Continue SCDs for px. 09/18/17 Psych note- Continue current. LISSY working on ECT options 09/17/17 Psych note- Continue current care. Pt was denied at [facility]. Will encourage family to reconsider [place]. 09/19/17 Psych note- Continue working on ECT treatment options Plan - 09/19/17 Patient remains catatonic. Minimal eating and drinking even with nursing assistance. Delayed swallowing per nursing. May need to consider PEG if family desires full support. Patient remains on 1/2NS at 80cc/hr. Hypernatremia improving (Na 148). Will recheck labs in AM. Given poor oral intake, will continue IVF and change to 1/2NS with KCl at 80cc/ hr. +VRE colonization on urine- remains afebrile. Will not treat due to psych medication interactions with Zyvox.Continue to monitor closely. Continue supportive care. Hoping to transfer to or [facility] for ECT. Chart reviewed for collateral information. Lovenox for DVT prophylaxis given limited movement. Continue to monitor blood pressure. Not taking PO meds, so remains a difficult situation. 09/20/17 Psych note- Pt has been accepted in [place] for ECT. Will decrease Ativan to 2mg PO TID with further decrease over the weekend
--- NOTE | 2017-09-20 16:33 | Progress Note ---
Progress Note: Hospitalist service participated in family meeting today in conjunction with the patient's sister, Savanna, Dr. Tellez, case management, community health nursing director and nursing. Initial plan for the meeting was to discuss treatment plan and family wishes regarding nutrition, etc. Fortunately, immediately prior to the meeting, the patient was accepted to [facility] for ECT treatments. Patient is anticipated to discharge on 09/23/17 and be transferred to [facility] via EMS for treatment. Will continue current plan of care. Dr. Tellez will begin tapering off the patient's Ativan in anticipation of ECT treatments. Will plan to transport to [facility] without IV fluids running but with IV in place and locked. Will recheck labs on 09/22/17 to monitor blood counts, electrolytes and renal function. Plan to meet with the patient's family on 09/22/17 and discuss recent labs and answer any additional questions as needed. Today, the patient appeared more alert though remains fairly catatonic. IV fluids changed to NS as hypernatremia has resolved. Will continue to monitor closely. Encouraged family to begin thinking about future treatment plans and desires such as placement of PEG tube, IV antibiotics, IV fluids, etc. though stressed that those decisions are not needed at present as the patient is medically stable.
[2017-09-20] MEDS: SENNA + DOCUSATE TABLET PO SCH (20:20)
[2017-09-20] MEDS: MIRTAZAPINE 30 MG TABLET PO SCH (20:20)
[2017-09-20] MEDS: SUCRALFATE 1 GM TABLET PO SCH (20:20)
[2017-09-20] MEDS: DOCUSATE SODIUM 100 MG CAPSULE PO SCH (20:20)
[2017-09-21] MEDS: NS with KCL 20 mEq 1,000 ML IV SCH ×2 (00:30→13:02)
[2017-09-21] MEDS: ALBUTEROL/IPRATROPIUM 2.5mg-0.5mg/3ml NEB AEROSOL SCH ×2 (07:23→18:30)
--- NOTE | 2017-09-21 09:06 | Neuropsych Progress Note ---
[facility] Subjective Date: 09/21/17 - Sujective/Severity of Illness Medications: Albuterol/Ipratropium (Duoneb) 3 ml AEROSOL Q2H PRN PRN Reason: Shortness of air/wheezing Albuterol/Ipratropium (Duoneb) 3 ml AEROSOL BID [facility] Last Admin: 09/20/17 19:38 Dose: 3 ml Artificial Tears (Refresh Classic) 1 drop EACH EYE BID [facility] Last Admin: 09/20/17 20:20 Dose: Not Given Calcium/Vitamin D (Caltrate + D) 1 tab PO DAILY [facility] Last Admin: 09/09/17 09:51 Dose: Not Given Celecoxib (Celebrex) 200 mg PO DAILY [facility] Last Admin: 09/16/17 10:18 Dose: 200 mg Docusate Sodium (Colace) 100 mg PO HS [facility] Last Admin: 09/20/17 20:20 Dose: 100 mg Enoxaparin Sodium (Lovenox) 40 mg SQ DAILY [facility] Last Admin: 09/20/17 09:39 Dose: 40 mg Fexofenadine HCl (Allyn) 180 mg PO DAILY PRN PRN Reason: Allergy symptoms Potassium Chloride/Sodium Chloride (Ns With Kcl 20 Meq Premix) 1,000 mls @ 75 mls/hr IV .[id number] [facility] Last Admin: 09/21/17 00:30 Dose: 75 mls/hr Lorazepam (Ativan Intensol) 2 mg PO TID [facility] Last Admin: 09/20/17 20:19 Dose: 2 mg Lorazepam (Ativan Inj) 2 mg IVP TID PRN PRN Reason: ALTERNATIVE TO PO JANY ROUTE Magnesium Hydroxide (Mom) 30 ml PO DAILY PRN PRN Reason: Constipation Last Admin: 09/10/17 08:54 Dose: 30 ml Mirtazapine (Remeron) 30 mg PO HS [facility] Last Admin: 09/20/17 20:20 Dose: 30 mg Multivitamins (Total B + C) 1 tab PO DAILY [facility] Last Admin: 09/09/17 09:51 Dose: Not Given Nystatin (Mycostatin) 1 applic TP BID PRN PRN Reason: Rash Pantoprazole Sodium (Protonix Tab) 40 mg PO ACB [facility] Last Admin: 09/20/17 09:44 Dose: Not Given Polyethylene Glycol (Miralax) 17 gm PO DAILY [facility] Last Admin: 09/20/17 09:51 Dose: Not Given Senna/Docusate Sodium (Senna Plus Tablet) 1 tab PO HS [facility] Last Admin: 09/20/17 20:20 Dose: 1 tab Sodium Chloride (Iv Flush) 10 ml IV PRN PRN PRN Reason: Flushing Last Admin: 09/17/17 14:00 Dose: 10 ml Sucralfate (Carafate) 1 gm PO HS [facility] Last Admin: 09/20/17 20:20 Dose: 1 gm Triamcinolone Acetonide (Kenalog) 1 applic TOP TID PRN PRN Reason: PRN orders Venlafaxine HCl (Effexor Xr) 75 mg PO WB [facility] Last Admin: 09/20/17 09:44 Dose: Not Given Subjective: Patient seen and chart reviewed. Nursing reprots pt is doing about the same. has some oral intake. No behaviors. On face to face the pt opens her eyes but does not communicate. Does not appear to be in any distress Start Time: 08:30 Stop Time: 08:45 Mental Status Exam Vitals: Last Vital Signs Temp 97.0 F 09/20/17 19:33 Pulse 84 09/20/17 19:33 Resp 32 H 09/21/17 07:23 BP 144/75 H 09/20/17 19:33 Pulse Ox 97 09/20/17 19:38 Height: 1.57 m Weight: 77.4 kg - Mental Status Exam Muscle Strength/Tone: Weak Dressing: Casual Grooming: Disheveled Attitude: Other (mostly appears catatonic) Motor Activity: Retardation Eye Contact: Poor Speech: Slowed Volume: Soft Rhythm: Mumbled, Paucity of Language Orientation: Disoriented to time, Disoriented to place, Disoriented to situation , Oriented to person Mood: Other (reports mood is "not good") Rate of Thoughts: Delayed Thought Organization: [place] Associations: Illogical Abstract Reasoning: Impaired, concrete Thought Content: Helplessness Perception/Psychotic: Perception Normal (per patient report) Language: Naming Impaired Fund of Knowledge: Poor fund of knowledge Memory: Poor-immediate, Poor-recent, Poor-remote Suicidal Ideation: Denies (though is not maintaining adequate PO intake) Homicidal Ideation: Denies Insight: Impaired Judgement: Impaired Impulse Control: Poor - Laboratory Result Diagrams: 09/20/17 06:30 09/20/17 06:30 Assessment and Plan (1) Major depressive disorder, recurrent episode, severe with catatonia Problem details: with psychotic features Current visit: Yes Status: Acute (2) Parkinson disease Problem details: Other medical conditions: MDD with severe psychotic symptoms GERD Allergies Urinary incontinence Constipation Current visit: Yes Status: Acute (3) Urinary tract infection Problem details: treated with fosfomycin 09/11/17 Current visit: Yes Status: Acute Hospital Course Summary Disclaimer: The visit summary below is not to be considered part of the above Progress Note. Hospital Course: Impression MDD with severe psychotic symptoms Parkinson's Disease GERD Allergies Urinary incontinence Constipation Plan Agree with admission to [facility] in the care of Dr. Burroughs for further psychiatric evaluation and treatment. Continue on Sinemet. 4. Chronic Parkinson's Carafate and Protonix for History of GERD and gastritis Miralax and Colace for chronic bowel motivation Will obtain a urine culture of urinalysis that was obtained in the emergency room to rule out infectious etiology. Given patient's reported urinary tract infection approximately 3 weeks ago. Encourage patient to report dyspnea, is improving a safe environment. The hospitalist services will continue follow patient medically manage existing comorbidities during her stay on the [facility] unit. At time of discharge, her medical care will return to primary care provider in [place], Dr. Brianne Llanes Psych 09/09/17: Discussed multiple treatment options, prognosis, diagnosis with sister/DPOA. ECT will not be available in [place] for several weeks. Will look into other options in nearby [facility]. For now, will make the following medication changes: - Decrease Baclofen to 5mg PO TID - Decrease Requip to 2mg PO TID - Discontinue tramadol - Decrease Remeron to 30mg PO q HS (plan to switch to another antidepressant) - Decrease Sinemet to 25mg in AM, 25mg in afternoon, 50mg at HS - Increase Ativan to 1mg PO TID - Discontinue PRN Haldol Will request dietary consult and encourage any PO intake. 09/09/17 Patient clinically appears dehydrated. Will assess labs including CBC, BMP, Mg, UA, and also CXR d/t altered mental status. Initial labs showed Na high-normal, K low-normal, stable renal function. WBC was normal, hgb was normal. Start NS @ 100 mL/hr, and I've asked staff to call me on my cell with any abnormal values to make adjustments to orders tonight. Prior UC from July was + E. coli, sensitive to 1st gen cephalosporins with an MALISSA of 16 -- she was treated with Keflex. Repeat UC from [facility] admit is showing preliminary growth. She's at risk for C. diff given recent abx use. If she develops diarrhea we will follow the stool collection protocol. TSH and vitamin B12 were unremarkable. Hgb A1c was 5.3%. Patient was seen simultaneously with Dr. Lucas, who formulated this plan. Also, sister wished to inform me that she is not interested in trialing the oral option for ECT at this time. She also does not plan on [place]. 09/10/17 Psych: Have discontinued Lexapro and will start Effexor XR 75mg PO q AM this morning. Increased lorazepam to 3mg PO TID and will monitor response. VSS. Decreased Sinemet to 12.5mg PO BID in AM, afternoon. Will leave the HS dose at 50mg for the time being but may consider decreasing in the future. Have discontinued Baclofen, Requip completely. 09/12/17 Psych: Have increased Ativan to 3mg PO TID and patient is responding more. If unable to take PO/SL, will give IM or IV. Continuing to look for ECT provider. 09/13/17 Psych: Continue current care; patient has shown some improvements. SW/ CM working with possible ECT provider in [place] area. 09/14/2017 Psych note- Continue current care 09/14/17 Labs remain stable. Will repeat BMP in am given she has not been taking much po. UC from admit +VRE, treated with fosfomycin on 09/11/17 but this does not cover this particular infection. Reviewed with Dr. Maria. Given that the only option for treatment is Zyvox and this is an MAOI and is contraindicated with her venlafaxine and mirtazapine, will not proceed with treatment. She has a normal white count and no fever. She had a repeat urine culture performed 2 days following the results of the positive VRE which only showed mixed bacterial bay. No further intervention is indicated at this time. D/W [facility] staff --possible transfer early next week to [place] for ECT. Vitals are stable. Nurse's notes and psychiatric notes reviewed. 09/15/17 Psych note- Continue current care 09/16/17 Repeat UC showing mixed bacterial bay. Prior UC showing VRE was not treated d/ t interaction with psych medications, coupled with being afebrile and having a normal WBC. Continue treatment per psych. Encourage PO food/fluid as able. BMP done yesterday was overall unremarkable -- slight increase in BUN. Poss dc soon to [place] or [place] for ECT. 09/16/17 Psych note- Continue current care. LISSY working on transfer for ECT 09/17/2017 Francisco continues to appear a bit dry. He did get a small amount of IVF yesterday. Low dose Lasix. Cardiology notes reviewed, as was echo. Appreciate cardiology assistance. EF is preserved. Question of possible bioprosthetic valve. Could consider CT of the chest to further evaluate valve and also ongoing infiltrates. Slow improvement. He is much weaker than normal- is requiring a lift to stand, which is new. 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 HR is controlled. Continue SCDs for px. 09/18/17 Psych note- Continue current. LISSY working on ECT options 09/17/17 Psych note- Continue current care. Pt was denied at [facility]. Will encourage family to reconsider . 09/19/17 Psych note- Continue working on ECT treatment options Plan - 09/19/17 Patient remains catatonic. Minimal eating and drinking even with nursing assistance. Delayed swallowing per nursing. May need to consider PEG if family desires full support. Patient remains on 1/2NS at 80cc/hr. Hypernatremia improving (Na 148). Will recheck labs in AM. Given poor oral intake, will continue IVF and change to 1/2NS with KCl at 80cc/ hr. +VRE colonization on urine- remains afebrile. Will not treat due to psych medication interactions with Zyvox.Continue to monitor closely. Continue supportive care. Hoping to transfer to or [facility] for ECT. Chart reviewed for collateral information. Lovenox for DVT prophylaxis given limited movement. Continue to monitor blood pressure. Not taking PO meds, so remains a difficult situation. 09/20/17 Psych note- Pt has been accepted in [place] for ECT. Will decrease Ativan to 2mg PO TID with further decrease over the weekend 09/21/17 Psych note- Continue current care
[2017-09-21] MEDS: PANTOPRAZOLE 40 MG TABLET PO SCH (09:32)
[2017-09-21] MEDS: ENOXAPARIN 40 MG/0.4 ML INJECTION SQ SCH (09:32)
[2017-09-21] MEDS: Venlaflaxine XR 75 MG CAPSULE (24hr) PO SCH (09:32)
[2017-09-21] MEDS: POLYETHYL GLYCOL 3350 17gm PACKET PO SCH (09:34)
[2017-09-21] MEDS: REFRESH CLASSIC Eye Drops 0.4ml EACH EYE SCH ×2 (09:34→21:07)
[2017-09-21] MEDS: LORazepam INTENSOL 1mg/0.5ml ORAL LIQUID PO SCH ×3 (09:34→21:08)
[2017-09-21] MEDS: SUCRALFATE 1 GM TABLET PO SCH (21:07)
[2017-09-21] MEDS: SENNA + DOCUSATE TABLET PO SCH (21:07)
[2017-09-21] MEDS: MIRTAZAPINE 30 MG TABLET PO SCH (21:07)
[2017-09-21] MEDS: DOCUSATE SODIUM 100 MG CAPSULE PO SCH (21:07)
[2017-09-22] MEDS: NS with KCL 20 mEq 1,000 ML IV SCH ×2 (02:34→15:27)
[2017-09-22] MEDS: ALBUTEROL/IPRATROPIUM 2.5mg-0.5mg/3ml NEB AEROSOL SCH ×2 (06:50→18:09)
[2017-09-22] MEDS: Venlaflaxine XR 75 MG CAPSULE (24hr) PO SCH (09:24)
[2017-09-22] MEDS: PANTOPRAZOLE 40 MG TABLET PO SCH (09:24)
[2017-09-22] MEDS: POLYETHYL GLYCOL 3350 17gm PACKET PO SCH ×2 (09:25→10:19)
[2017-09-22] MEDS: ENOXAPARIN 40 MG/0.4 ML INJECTION SQ SCH (09:25)
[2017-09-22] MEDS: REFRESH CLASSIC Eye Drops 0.4ml EACH EYE SCH ×3 (09:25→20:32)
[2017-09-22] MEDS: LORazepam INTENSOL 1mg/0.5ml ORAL LIQUID PO SCH ×3 (10:04→20:32)
--- NOTE | 2017-09-22 17:51 | Neuropsych Progress Note ---
[facility] Subjective Date: 09/22/17 - Sujective/Severity of Illness Medications: Albuterol/Ipratropium (Duoneb) 3 ml AEROSOL Q2H PRN PRN Reason: Shortness of air/wheezing Albuterol/Ipratropium (Duoneb) 3 ml AEROSOL BID [facility] Last Admin: 09/22/17 06:50 Dose: 3 ml Artificial Tears (Refresh Classic) 1 drop EACH EYE BID [facility] Last Admin: 09/22/17 09:25 Dose: 1 drop Calcium/Vitamin D (Caltrate + D) 1 tab PO DAILY [facility] Last Admin: 09/09/17 09:51 Dose: Not Given Celecoxib (Celebrex) 200 mg PO DAILY [facility] Last Admin: 09/16/17 10:18 Dose: 200 mg Docusate Sodium (Colace) 100 mg PO HS [facility] Last Admin: 09/21/17 21:07 Dose: 100 mg Enoxaparin Sodium (Lovenox) 40 mg SQ DAILY [facility] Last Admin: 09/22/17 09:25 Dose: 40 mg Fexofenadine HCl (Allyn) 180 mg PO DAILY PRN PRN Reason: Allergy symptoms Potassium Chloride/Sodium Chloride (Ns With Kcl 20 Meq Premix) 1,000 mls @ 75 mls/hr IV .[id number] [facility] Last Admin: 09/22/17 15:27 Dose: 75 mls/hr Lorazepam (Ativan Intensol) 2 mg PO TID [facility] Last Admin: 09/22/17 15:18 Dose: 2 mg Lorazepam (Ativan Inj) 2 mg IVP TID PRN PRN Reason: ALTERNATIVE TO PO JANY ROUTE Magnesium Hydroxide (Mom) 30 ml PO DAILY PRN PRN Reason: Constipation Last Admin: 09/10/17 08:54 Dose: 30 ml Mirtazapine (Remeron) 30 mg PO HS [facility] Last Admin: 09/21/17 21:07 Dose: 30 mg Multivitamins (Total B + C) 1 tab PO DAILY [facility] Last Admin: 09/09/17 09:51 Dose: Not Given Nystatin (Mycostatin) 1 applic TP BID PRN PRN Reason: Rash Pantoprazole Sodium (Protonix Tab) 40 mg PO ACB [facility] Last Admin: 09/22/17 09:24 Dose: 40 mg Polyethylene Glycol (Miralax) 17 gm PO DAILY [facility] Last Admin: 09/22/17 10:19 Dose: Not Given Senna/Docusate Sodium (Senna Plus Tablet) 1 tab PO HS [facility] Last Admin: 09/21/17 21:07 Dose: 1 tab Sodium Chloride (Iv Flush) 10 ml IV PRN PRN PRN Reason: Flushing Last Admin: 09/17/17 14:00 Dose: 10 ml Sucralfate (Carafate) 1 gm PO HS [facility] Last Admin: 09/21/17 21:07 Dose: 1 gm Triamcinolone Acetonide (Kenalog) 1 applic TOP TID PRN PRN Reason: PRN orders Venlafaxine HCl (Effexor Xr) 75 mg PO WB [facility] Last Admin: 09/22/17 09:24 Dose: 75 mg Subjective: Patient seen and chart reviewed. Nursing reprots pt is doing about the same. Some oral intake. Does not respond to questions but mumbles at times. On face to face pt does not respond to question but does not appear to be in any distress. Tolerating meds Start Time: 14:00 Stop Time: 14:15 Mental Status Exam Vitals: Last Vital Signs Temp 98.1 F 09/22/17 15:32 Pulse 91 09/22/17 15:32 Resp 32 H 09/22/17 15:32 BP 146/79 H 09/22/17 15:32 Pulse Ox 96 09/22/17 15:32 Height: 1.57 m Weight: 77.4 kg - Mental Status Exam Muscle Strength/Tone: Weak Dressing: Casual Grooming: Disheveled Attitude: Other (mostly appears catatonic) Motor Activity: Retardation Eye Contact: Poor Speech: Slowed Volume: Soft Rhythm: Mumbled, Paucity of Language Orientation: Disoriented to time, Disoriented to place, Disoriented to situation , Oriented to person Mood: Other (reports mood is "not good") Rate of Thoughts: Delayed Thought Organization: [place] Associations: Illogical Abstract Reasoning: Impaired, concrete Thought Content: Helplessness Perception/Psychotic: Perception Normal (per patient report) Language: Naming Impaired Fund of Knowledge: Poor fund of knowledge Memory: Poor-immediate, Poor-recent, Poor-remote Suicidal Ideation: Denies (though is not maintaining adequate PO intake) Homicidal Ideation: Denies Insight: Impaired Judgement: Impaired Impulse Control: Poor - Laboratory Result Diagrams: 09/22/17 06:41 09/22/17 06:41 Laboratory Results - last 24 hr 09/22/17 09/22/17 09/22/17 01:35 06:41 06:41 WBC 3.1 L RBC 3.95 L Hgb 12.4 Hct 38.0 MCV 96.2 MCH 31.4 MCHC 32.6 RDW Std Deviation 42.8 Plt Count 166 MPV 10.2 Immature Gran % (Auto) 0.3 Neut % (Auto) 67.2 H Lymph % (Auto) 17.9 L [place] % (Auto) 10.5 H Eos % (Auto) 3.5 Baso % (Auto) 0.6 Neut # (Auto) 2.1 Lymph # (Auto) 0.6 L [place] # (Auto) 0.3 Eos # (Auto) 0.1 Baso # (Auto) 0.0 Abs Immat Gran (auto) 0.01 Turbidity < 20 Sodium 140 Potassium 4.0 Chloride 107 Carbon Dioxide 23 Anion Gap 10 BUN 4.0 L D Creatinine 0.4 L Estimated Creat Clear 50 GFR Calculation 157 BUN/Creatinine Ratio 10 Glucose 86 Glucometer 85 Calculated Osmolality 265 Calcium 8.5 Icterus Index < 2 Specimen Hemolysis < 15 Assessment and Plan (1) Major depressive disorder, recurrent episode, severe with catatonia Problem details: with psychotic features Current visit: Yes Status: Acute (2) Parkinson disease Problem details: Other medical conditions: MDD with severe psychotic symptoms GERD Allergies Urinary incontinence Constipation Current visit: Yes Status: Acute (3) Urinary tract infection Problem details: treated with fosfomycin 09/11/17 Current visit: Yes Status: Acute Hospital Course Summary Disclaimer: The visit summary below is not to be considered part of the above Progress Note. Hospital Course: Impression MDD with severe psychotic symptoms Parkinson's Disease GERD Allergies Urinary incontinence Constipation Plan Agree with admission to [facility] ([place] [place]) in the care of Dr. Burroughs for further psychiatric evaluation and treatment. Continue on Sinemet. 4. Chronic Parkinson's Carafate and Protonix for History of GERD and gastritis Miralax and Colace for chronic bowel motivation Will obtain a urine culture of urinalysis that was obtained in the emergency room to rule out infectious etiology. Given patient's reported urinary tract infection approximately 3 weeks ago. Encourage patient to report dyspnea, is improving a safe environment. The hospitalist services will continue follow patient medically manage existing comorbidities during her stay on the [facility] [place] unit. At time of discharge, her medical care will return to primary care provider in [place], Dr. Brianne Llanes Psych 09/09/17: Discussed multiple treatment options, prognosis, diagnosis with sister/DPOA. ECT will not be available in [place] for several weeks. Will look into other options in nearby [facility]. For now, will make the following medication changes: - Decrease Baclofen to 5mg PO TID - Decrease Requip to 2mg PO TID - Discontinue tramadol - Decrease Remeron to 30mg PO q HS (plan to switch to another antidepressant) - Decrease Sinemet to 25mg in AM, 25mg in afternoon, 50mg at HS - Increase Ativan to 1mg PO TID - Discontinue PRN Haldol Will request dietary consult and encourage any PO intake. 09/09/17 Patient clinically appears dehydrated. Will assess labs including CBC, BMP, Mg, UA, and also CXR d/t altered mental status. Initial labs showed Na high-normal, K low-normal, stable renal function. WBC was normal, hgb was normal. Start NS @ 100 mL/hr, and I've asked staff to call me on my cell with any abnormal values to make adjustments to orders tonight. Prior UC from July was + E. coli, sensitive to 1st gen cephalosporins with an MALISSA of 16 -- she was treated with Keflex. Repeat UC from [facility] ([place]) admit is showing preliminary growth. She's at risk for C. diff given recent abx use. If she develops diarrhea we will follow the stool collection protocol. TSH and vitamin B12 were unremarkable. Hgb A1c was 5.3%. Patient was seen simultaneously with Dr. Lucas, who formulated this plan. Also, sister wished to inform me that she is not interested in trialing the oral option for ECT at this time. She also does not plan on [place]. 09/10/17 Psych: Have discontinued Lexapro and will start Effexor XR 75mg PO q AM this morning. Increased lorazepam to 3mg PO TID and will monitor response. VSS. Decreased Sinemet to 12.5mg PO BID in AM, afternoon. Will leave the HS dose at 50mg for the time being but may consider decreasing in the future. Have discontinued Baclofen, Requip completely. 09/12/17 Psych: Have increased Ativan to 3mg PO TID and patient is responding more. If unable to take PO/SL, will give IM or IV. Continuing to look for ECT provider. 09/13/17 Psych: Continue current care; patient has shown some improvements. SW/ CANDICE working with possible ECT provider in [place] area. 09/14/2017 Psych note- Continue current care 09/14/17 Labs remain stable. Will repeat BMP in am given she has not been taking much po. UC from admit +VRE, treated with fosfomycin on 09/11/17 but this does not cover this particular infection. Reviewed with Dr. Maria. Given that the only option for treatment is Zyvox and this is an MAOI and is contraindicated with her venlafaxine and mirtazapine, will not proceed with treatment. She has a normal white count and no fever. She had a repeat urine culture performed 2 days following the results of the positive VRE which only showed mixed bacterial bay. No further intervention is indicated at this time. D/W [facility] staff --possible transfer early next week to [place] for ECT. Vitals are stable. Nurse's notes and psychiatric notes reviewed. 09/15/17 Psych note- Continue current care 09/16/17 Repeat UC showing mixed bacterial bay. Prior UC showing VRE was not treated d/ t interaction with psych medications, coupled with being afebrile and having a normal WBC. Continue treatment per psych. Encourage PO food/fluid as able. BMP done yesterday was overall unremarkable -- slight increase in BUN. Poss dc soon to [place] or [place] for ECT. 09/16/17 Psych note- Continue current care. LISSY working on transfer for ECT 09/17/2017 Francisco continues to appear a bit dry. He did get a small amount of IVF yesterday. Low dose Lasix. Cardiology notes reviewed, as was echo. Appreciate cardiology assistance. EF is preserved. Question of possible bioprosthetic valve. Could consider CT of the chest to further evaluate valve and also ongoing infiltrates. Slow improvement. He is much weaker than normal- is requiring a lift to stand, which is new. 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 HR is controlled. Continue SCDs for px. 09/18/17 Psych note- Continue current. SW working on ECT options 09/17/17 Psych note- Continue current care. Pt was denied at [facility]. Will encourage family to reconsider . 09/19/17 Psych note- Continue working on ECT treatment options Plan - 09/19/17 Patient remains catatonic. Minimal eating and drinking even with nursing assistance. Delayed swallowing per nursing. May need to consider PEG if family desires full support. Patient remains on 1/2NS at 80cc/hr. Hypernatremia improving (Na 148). Will recheck labs in AM. Given poor oral intake, will continue IVF and change to 1/2NS with KCl at 80cc/ hr. +VRE colonization on urine- remains afebrile. Will not treat due to psych medication interactions with Zyvox.Continue to monitor closely. Continue supportive care. Hoping to transfer to or [facility] for ECT. Chart reviewed for collateral information. Lovenox for DVT prophylaxis given limited movement. Continue to monitor blood pressure. Not taking PO meds, so remains a difficult situation. 09/20/17 Psych note- Pt has been accepted in [facility] for ECT. Will decrease Ativan to 2mg PO TID with further decrease over the weekend 09/21/17 Psych note- Continue current care 09/22/17 Psych note- DECREASE ATIVAN TO 1.5MG tid. DC tomorrow
[2017-09-22] MEDS: DOCUSATE SODIUM 100 MG CAPSULE PO SCH (20:31)
[2017-09-22] MEDS: MIRTAZAPINE 30 MG TABLET PO SCH (20:32)
[2017-09-22] MEDS: SENNA + DOCUSATE TABLET PO SCH (20:33)
[2017-09-22] MEDS: SUCRALFATE 1 GM TABLET PO SCH (20:33)
[2017-09-23] MEDS: ALBUTEROL/IPRATROPIUM 2.5mg-0.5mg/3ml NEB AEROSOL SCH (07:00)
[2017-09-23 09:47] VITALS: BP 147/77; PULSE 83; RESP 16; TEMP 97.3; O2SAT 97
[2017-09-23] MEDS: REFRESH CLASSIC Eye Drops 0.4ml EACH EYE SCH (09:49)
[2017-09-23] MEDS: ENOXAPARIN 40 MG/0.4 ML INJECTION SQ SCH (09:49)
[2017-09-23] MEDS: SALINE FLUSH 10ml SYRINGE IV PRN (09:51)
[2017-09-23] MEDS: Venlaflaxine XR 75 MG CAPSULE (24hr) PO SCH (10:32)
[2017-09-23] MEDS: PANTOPRAZOLE 40 MG TABLET PO SCH (10:32)
[2017-09-23] MEDS: LORazepam INTENSOL 1mg/0.5ml ORAL LIQUID PO SCH (10:33)
[2017-09-23] MEDS: POLYETHYL GLYCOL 3350 17gm PACKET PO SCH (10:33)
== END 2017-09-23 10:30 | DRG 885 ==
LOC: ED 19:22 → GEN 22:00
PROVIDERS: ADMIT Psychiatry & Neurology Psychiatry; ATTEND Psychiatry & Neurology Psychiatry